=== PATIENT | male | born 1950 | race Caucasian/White ===

== ENCOUNTER → 2018-03-26 08:51 | Outpatient (CLI) | payer MEDICARE, BC, SELFPAY ==
--- NOTE | 2018-03-26 08:57 | RAD_ITS ---
STUDY: X-RAY - LEFT ANKLE REASON FOR EXAM: Male, 67 years old. Pain and swelling TECHNIQUE: 3 view(s) of the ankle. COMPARISON: None. FINDINGS: Normal visualized distal tibia and fibula. Normal medial and lateral malleoli. Normal tibiotalar articulation and ankle mortise. Normal visualized talus and calcaneus. The visualized subtalar, talonavicular, calcaneocuboid and tarsal articulations are normal. The soft tissue structures are unremarkable. RAD/Ankle min 3 Views IMPRESSION: Normal x-ray examination of the ankle. Electronically Signed: Jn Gerardo MD at 10:35 EDT , Service support ,
[2018-03-26 10:48] LABS: ALB/GLOB Ratio 1.2 RATIO (0.9-2.4); AST(SGOT) 15 U/L (15-37); Alanine Aminotransfer ALT/SGPT 29 U/L (16-61); Albumin, Serum 3.8 g/dL (3.2-5.0); Alkaline Phosphatase 63 U/L (45-117); Anion Gap 8 (5-15); BUN 19 mg/dL (7-18); BUN/Creat Ratio 20.3 RATIO (10-20); Calcium,Total 8.2 mg/dL (8.5-10.1); Chloride 108 mmol/L (98-107); Cholesterol 183 mg/dL (200); Creatinine, Serum 0.93 mg/dL (0.70-1.30); EST Glomerular Filtration Rate 85 mL/min (>60); Est Glom Filt Rate - Afr Amer 103 mL/min (>60); Globulin 3.3 g/dL (2.2-4.2); Glucose 103 mg/dL (74-106); High Density Lipoprotein 58 mg/dL; Potassium 4.4 mmol/L (3.5-5.1); Protein, Total 7.1 g/dL (6.4-8.2); Sodium Level 138 mmol/L (136-145); Triglycerides 43 mg/dL; Very Low Density Lipoprotein 9 mg/dL (5-40)
== END ==
PROVIDERS: Family Provider Family Medicine; PCP Family Medicine; Visit Provider Nurse Practitioner Family
DX: S99.912A Unspecified injury of left ankle, initial encounter (principal); N52.9 Male erectile dysfunction, unspecified; I10 Essential (primary) hypertension
CPT/HCPCS: 36415; 73610; 80053; 80061

== ENCOUNTER 2018-04-01 07:57 | Day surgery (SDC) | payer MEDICARE, BC, SELFPAY ==
[2018-04-01 08:22] VITALS: BP 131/87; PULSE 75; RESP 16; TEMP 36.5; O2SAT 100; BMI 31.1
--- NOTE | 2018-04-01 09:30 | COLBX_PTH ---
PATIENT: MIRA FELICIANO LOC: EN U#:[id number] AGE/SX: 67/M ROOM: RE04/01/[address]: Dr. Tim Rai MD : [id number] BED: DIS: 04/01/2018 SPEC #: [id number] RECD: 04/01/18 13:29 STATUS: ALMA GABRIELE #: [id number] YG: 04/01/18 09:[address]: Tim Rai DEPT: SURGICAL PATHOLOGY RECD BY: Nicholas Fiore ENTERED: 04/01/18 14:11 SP TYPE: COLON BX OTHR DR: Dr. Silas Chaidez, DO Tissues: Sigmoid colon biopsy Procedures: Surgery Specimen Level IV HEADER OPERATION: Colonoscopy (MAC) PRE-OP DIAGNOSIS: Screening TISSUE SUBMITTED: Polyp sigmoid MICROSCOPIC DIAGNOSIS Polyp sigmoid, biopsy: Tubular adenoma. SJ:dari 04/02/18 MICROSCOPIC DESCRIPTION Slides are reviewed. GROSS DESCRIPTION Received in fixative is one container labeled with the patient's name and designated polyp sigmoid. The specimen consists of a piece of monroy-pink polyp measuring 0.7 x 0.5 x 0.3 cm. The specimen is totally submitted in one cassette. / SJ:dari 04/01/18 TC:1 CPT: 02458
--- NOTE | 2018-04-01 09:39 | PCM.HP.STD ---
Problem List (1) Screen for colon cancer Status: Acute History of Present Illness Date of Admission: 04/01/18 The patient is a 67 year old M who presents for screening colonoscopy. Past Medical History Past Medical History (Chronic Problems): Chronic Problems (Last Reviewed 03/24/18 @ 14:35 by Chari Matos) Impotence (Chronic) Hypertension (Chronic) Sciatica (Chronic) Medical History: Medical History (Last Reviewed 03/24/18 @ 14:35 by Chari Matos) Impotence (Chronic) N52.9 Hypertension (Chronic) I10 Sciatica (Chronic) M54.30 Allergies hydrochlorothiazide [From Diovan HCT] Allergy (Unknown, Verified 04/01/18 08:18) Swelling valsartan [From Diovan HCT] Allergy (Unknown, Verified 04/01/18 08:18) Swelling Home Medications: Ambulatory Orders Medication Instructions Recorded amlodipine 10 mg tablet 10 mg PO QDAY #90 tab 02/10/18 benazepril 20 mg tablet 20 mg PO QDAY #90 tab 02/10/18 multivitamin tablet 1 tab PO QAM 02/10/18 ibuprofen 600 mg tablet 600 mg PO TID PRN #30 tab 03/24/18 Vits A,C,E/Lutein/Minerals 1 each PO DAILY 03/30/18 [Ocuvite with Lutein Tablet] Surgical History: Surgical History (Last Reviewed 03/24/18 @ 14:35 by Chari Matos) History of back surgery Z98.890 03/27/2016 Smoking Status: Former smoker - *Family History Maternal Family History: Family History (Last Reviewed 03/24/18 @ 14:35 by Chari Matos) Mother CVA (cerebral vascular accident) Hypertension Father Hypertension Review of Systems Cardiovascular: Denies: Chest Pain, Chest Pressure, Chest Tightness, Palpitations Respiratory: Denies: Cough, Hemoptysis, Shortness of breath at rest, Shortness of breath upon exertion, Wheezing Gastrointestinal: Denies: Abdominal Pain, Constipation, Diarrhea, Hematemesis, Nausea, Melena, Vomiting VTE Information - Inpt Only VTE Present on Admission: No VTE Mechan Device Prophylaxis: None VTE Pharm Prophylaxis ordered?: No Reason prophylaxis not ordered:: Treatment Not Indicated Patient Problems: Active and Suspected Problems (Last Reviewed 03/24/18 @ 14:35 by Chari Matos) Screen for colon cancer (Acute) - Physical Exam Lungs: Clear to auscultation Cardiovascular: Regular rate, Regular Rhythm, No murmurs Abdomen: Bowel Sounds Present, Soft, Non Tender, Non-Distended Vital Signs Temp Pulse Resp BP Pulse Ox 97.7 F L 75 16 131/87 H 100 04/01/18 08:22 04/01/18 08:22 04/01/18 08:22 04/01/18 08:22 04/01/18 08:22 Oxygen Delivery Method Room Air Weight: 204 lb 12.951 oz Body Mass Index (BMI) 31.1 Assessment/Plan All Active Problems (Last Reviewed 03/24/18 @ 14:35 by Chari Matos) Screen for colon cancer (Acute) Physical exam, annual (Acute) I plan is to perform a colonoscopy. Risk benefits have been reviewed and the patient agrees to proceed.
[2018-04-01 09:41] VITALS: BP 131/87; BP 93/62; PULSE 71; RESP 18; TEMP 36.6; O2SAT 98
--- NOTE | 2018-04-01 09:43 | OP.PCM_ITS ---
Problem List (1) Screen for colon cancer Status: Acute Report of Operation Date of Procedure: 04/01/18 Pre-Operative Diagnosis: Z12.11 screening colonoscopy Post-Operative Diagnosis: Same Surgery/Procedure Performed:: Colonoscopy with snare polypectomy Type of Anesthesia:: MAC Description of Procedure: Patient was brought into the operating room placed in left lateral decubitus position. He was given graded anesthesia. Scope was inserted into the rectum. It was directed through the sigmoid colon, descending colon, transverse colon , descending colon, to the cecum. Operative findings: 1. Cecum: Normal appearance no mass lesions normal ileocecal valve. 2. Descending colon: Normal appearance no mass lesions. 3 transverse colon: Normal appearance no mass lesions. 4. Descending colon: Normal appearance no mass lesions 5. Sigmoid colon: Normal appearance minimal diverticular disease was identified polyp was identified and I removed it with snare cautery technique and brought back to the channel the scope. 6. Rectum: Normal appearance no mass lesion scope was withdrawn no masses were felt in the anus and the prostate was smooth and small. Patient will need to have another colonoscopy in 3 years. - Admit VTE Documentation VTE Present on Admission: No VTE Mechan Device Prophylaxis: SCD's VTE Pharm Prophylaxis ordered?: No Reason prophylaxis not ordered:: Treatment Not Indicated
[2018-04-01 09:45] VITALS: BP 131/87; BP 98/72; PULSE 69; RESP 18; O2SAT 98
[2018-04-01 09:50] VITALS: BP 105/71; BP 131/87; PULSE 63; RESP 18; O2SAT 100
[2018-04-01 09:55] VITALS: BP 109/68; BP 131/87; PULSE 60; RESP 18; TEMP 37; O2SAT 100
== END 2018-04-01 10:25 | disposition home or self-care (01) ==
LOC: EN 07:58 → AC 07:59
PROVIDERS: Family Provider Family Medicine; PCP Family Medicine; Visit Provider Surgery
PROC: 0DJD8ZZ Inspection of Lower Intestinal Tract, Via Natural or Artificial Opening Endoscopic (ICD-10-PCS; CPT 45378; principal; 2018-04-01 09:25)
DX: Z12.11 Encounter for screening for malignant neoplasm of colon (principal); D12.5 Benign neoplasm of sigmoid colon; K57.30 Diverticulosis of large intestine without perforation or abscess without bleeding; I10 Essential (primary) hypertension; M54.30 Sciatica, unspecified side; Z79.899 Other long term (current) drug therapy; Z87.891 Personal history of nicotine dependence
CPT/HCPCS: 45385; 88305; J7120

== ENCOUNTER → 2019-02-11 | Outpatient (CLI) | payer MEDICARE, BC, SELFPAY ==
[2019-01-19 13:04] VITALS: BMI 32.3
[2019-02-11 12:42] LABS: AST(SGOT) 22 U/L (15-37); Alanine Aminotransfer ALT/SGPT 39 U/L (16-61); Albumin, Serum 3.8 g/dL (3.2-5.0); Alkaline Phosphatase 63 U/L (45-117); Anion Gap 4 (5-15); BUN 15 mg/dL (7-18); BUN/Creat Ratio 17.1 RATIO (10-20); Calcium,Total 8.5 mg/dL (8.5-10.1); Chloride 108 mmol/L (98-107); Cholesterol 212 mg/dL (200); Creatinine, Serum 0.88 mg/dL (0.70-1.30); EST Glomerular Filtration Rate 91 mL/min (>60); Est Glom Filt Rate - Afr Amer 110 mL/min (>60); Globulin 3.7 g/dL (2.2-4.2); Glucose 96 mg/dL (74-106); High Density Lipoprotein 61 mg/dL; Potassium 4.4 mmol/L (3.5-5.1); Protein, Total 7.5 g/dL (6.4-8.2); Sodium Level 136 mmol/L (136-145); Triglycerides 64 mg/dL; Very Low Density Lipoprotein 13 mg/dL (5-40)
== END | disposition home or self-care (01) ==
LOC: BIMLAB 08:05
PROVIDERS: Family Provider Family Medicine; PCP Family Medicine; Visit Provider Family Medicine
DX: N52.9 Male erectile dysfunction, unspecified (principal); I10 Essential (primary) hypertension
CPT/HCPCS: 36415; 80053; 80061

== ENCOUNTER → 2021-01-02 15:21 | Outpatient (CLI) | payer MEDICARE, BC, SELFPAY ==
[2021-01-02 14:54] VITALS: BMI 31.7
[2021-01-02 17:03] LABS: ALB/GLOB Ratio 1.1 RATIO (0.9-2.4); AST(SGOT) 16 U/L (15-37); Alanine Aminotransfer ALT/SGPT 36 U/L (16-61); Albumin, Serum 3.9 g/dL (3.2-5.0); Alkaline Phosphatase 69 U/L (45-117); Anion Gap 6 (5-15); BUN 14 mg/dL (7-18); BUN/Creat Ratio 19.9 RATIO (10-20); Calcium,Total 8.7 mg/dL (8.5-10.1); Chloride 105 mmol/L (98-107); Cholesterol 202 mg/dL (200); EST Glomerular Filtration Rate 117 mL/min (>60); Est Glom Filt Rate - Afr Amer 142 mL/min (>60); Globulin 3.7 g/dL (2.2-4.2); Glucose 91 mg/dL (74-106); High Density Lipoprotein 55 mg/dL; Potassium 4.1 mmol/L (3.5-5.1); Protein, Total 7.6 g/dL (6.4-8.2); Sodium Level 137 mmol/L (136-145); Triglycerides 69 mg/dL; Very Low Density Lipoprotein 14 mg/dL (5-40)
== END ==
PROVIDERS: PCP Family Medicine; Referring Provider Family Medicine; Visit Provider Family Medicine
DX: I10 Essential (primary) hypertension (principal)
CPT/HCPCS: 36415; 80053; 80061

== ENCOUNTER 2022-07-23 09:53 | Outpatient (CLI) | payer MEDICARE, BC, SELFPAY ==
[2022-07-23 12:35] LABS: ALB/GLOB Ratio 0.8 RATIO (0.9-2.4); AST(SGOT) 13 U/L (15-37); Alanine Aminotransfer ALT/SGPT 29 U/L (16-61); Albumin, Serum 3.3 g/dL (3.2-5.0); Alkaline Phosphatase 69 U/L (45-117); Anion Gap 7 (5-15); BUN 18 mg/dL (7-18); BUN/Creat Ratio 26.3 RATIO (10-20); Calcium,Total 8.7 mg/dL (8.5-10.1); Chloride 105 mmol/L (98-107); Cholesterol 133 mg/dL (200); Creatinine, Serum 0.68 mg/dL (0.70-1.30); EST Glomerular Filtration Rate 120 mL/min (>60); Est Glom Filt Rate - Afr Amer 146 mL/min (>60); Globulin 4.1 g/dL (2.2-4.2); Glucose 84 mg/dL (74-106); High Density Lipoprotein 41 mg/dL; Potassium 4.2 mmol/L (3.5-5.1); Protein, Total 7.4 g/dL (6.4-8.2); Sodium Level 137 mmol/L (136-145); Triglycerides 87 mg/dL; Very Low Density Lipoprotein 17 mg/dL (5-40)
== END 2022-07-23 23:59 | disposition home or self-care (01) ==
LOC: BIMLAB 09:54
PROVIDERS: PCP Family Medicine; Referring Provider Family Medicine; Visit Provider Family Medicine
DX: I10 Essential (primary) hypertension (principal); R35.1 Nocturia
CPT/HCPCS: 36415; 80053; 80061; 84153

== ENCOUNTER → 2023-06-04 | Outpatient (CLI) | payer MEDICARE, BC, SELFPAY ==
[2023-06-04 13:35] LABS: PSA,Total- Diagnostic 9.84 ng/mL (0.0-4.0)
== END | disposition home or self-care (01) ==
LOC: BIMLAB 11:44
PROVIDERS: PCP Family Medicine; Referring Provider Family Medicine; Visit Provider Family Medicine
DX: R35.1 Nocturia (principal)
CPT/HCPCS: 36415; 84153

== ENCOUNTER → 2023-08-20 | Outpatient (CLI) | payer MEDICARE, BC, SELFPAY ==
[2023-08-20 15:34] LABS: Absolute Neutrophil Count 12.3 X10^3/uL (2.0-7.7); Basophil# 0.07 X10^3/uL; Basophil% 0.5 % (0-1); Eosinophil# 0.02 X10^3/uL; Eosinophils% 0.1 % (0-5); Hemoglobin 15.9 g/dL (13.0-16.5); Lymphocyte % 6.4 % (19-41); Mean Corp Hgb Conc 33.1 g/dL (32-36); Mean Corpuscular Hgb 30.2 pg (27.0-32.0); Mean Corpuscular Volume 91.1 fL (80-94); Mean Platelet Vol. 9.5 fl (6.2-12.0); Monocyte# 0.62 X10^3/uL; Monocyte% 4.4 % (0-10); NRBC Flagged by Analyzer 0 % (0-5); Neutrophil # 12.29 X10^3/uL (2.7-7.7); Neutrophil % 87.4 % (47-70); Platelet Count 318 K/mm3 (150-450); RBC Distribution Width CV 13.5 % (11.6-14.6); RBC Distribution Width SD 45.5 fl (35.1-43.9); Red Blood Count 5.27 M/mm3 (4.6-6.2); White Blood Count 14.1 K/mm3 (4.4-11.0)
[2023-08-20 16:22] LABS: ALB/GLOB Ratio 0.9 RATIO (0.9-2.4); AST(SGOT) 12 U/L (15-37); Alanine Aminotransfer ALT/SGPT 24 U/L (16-61); Albumin, Serum 3.5 g/dL (3.2-5.0); Alkaline Phosphatase 73 U/L (45-117); Anion Gap 9 (5-15); BUN 17 mg/dL (7-18); BUN/Creat Ratio 22.7 RATIO (10-20); Calcium,Total 8.5 mg/dL (8.5-10.1); Chloride 107 mmol/L (98-107); Cholesterol 153 mg/dL (200); Creatinine, Serum 0.75 mg/dL (0.70-1.30); EST Glomerular Filtration Rate 108 mL/min (>60); Est Glom Filt Rate - Afr Amer 131 mL/min (>60); Globulin 3.8 g/dL (2.2-4.2); Glucose 112 mg/dL (74-106); High Density Lipoprotein 70 mg/dL; PSA,Total- Diagnostic 9.07 ng/mL (0.0-4.0); Potassium 4.2 mmol/L (3.5-5.1); Protein, Total 7.3 g/dL (6.4-8.2); Sodium Level 138 mmol/L (136-145); Triglycerides 48 mg/dL; Very Low Density Lipoprotein 10 mg/dL (5-40)
== END | disposition home or self-care (01) ==
LOC: BIMLAB 14:32
PROVIDERS: PCP Family Medicine; Referring Provider Family Medicine; Visit Provider Family Medicine
DX: R35.1 Nocturia (principal); I10 Essential (primary) hypertension; M54.30 Sciatica, unspecified side
CPT/HCPCS: 36415; 80053; 80061; 84153; 85025

== ENCOUNTER → 2023-08-29 | Outpatient (CLI) | payer MEDICARE, BC, SELFPAY ==
--- OUTSIDE RECORDS SUMMARY | 2023-08-29 10:57 | XMS RPT_ITS | CCD ---
Author Name Unknown Address [address] [place] [address] Organization [facility] Care Team Providers Care Nurse Advocate Name Role Phone Maryellen Chaidez DO Primary Care Provider TIM RAI Attending Unavailable TIM RAI Referring Unavailable MARYELLEN CHAIDEZ Primary Care Unavailable TIM RAI Attending Unavailable TIM RAI Referring Unavailable MARYELLEN CHAIDEZ Primary Care Unavailable TIM RAI Attending Unavailable PORSHA NORMAN Referring Unavailable MARYELLEN CHAIDEZ Primary Care Unavailable PORSHA NORMAN Attending Unavailable MARYELLEN CHAIDEZ Primary Care Unavailable Allergies Allergy Classification Reported Allergen(s) Allergy Type Date of Onset Reaction(s) Facility (6 sources) hydroCHLOROthiazi de; Translations: [HYDROCHLOROTHIAZ ZEINAB] Drug Allergy 02-03-2023 Swelling [facility] (6 sources) valsartan; Translations: [VALSARTAN] Drug Allergy 02-03-2023 Swelling [facility] Medications Current Medications Medication Drug Class(es) Dates Sig (Normalized) Sig (Original) polyethylene glycol 3350 868765 mg / potassium chloride 2970 mg / sodium bicarbonate 6740 mg / sodium chloride 5860 mg / sodium sulfate 74608 mg powder for oral solution (3 sources) Osmotic Laxative Start: 02-28-2023 End: 02-28-2023 peg 3350-Electrolytes (GOLYTELY) 236-22.74-6.74 -5.86 gram suspension Indications: Personal history of colonic polyps Take 4,000 mL by mouth one time only for 1 dose. Refer to printed prep instructions from your provider. 4000 mL 0 02/28/2023 02/28/2023 Active Completed/Discontinued Medications Medication Drug Class(es) Dates Sig (Normalized) Sig (Original) amLODIPine 10 mg oral tablet (5 sources) Dihydropyridine Calcium Channel Cristofer take 1 tablet by mouth once daily amLODIPine (NORVASC) 10 mg tablet Take 10 mg by mouth once daily. 0 Active Problems Active Problems Problem Classification Problem Date Documented Da te Episodic/Chronic Other and unspecified benign neoplasm (8 sources) History of polyp of colon; Translations: [Personal history of colonic polyps] Onset: 02-20-2023 Episodic Other screening for suspected conditions (not mental disorders or infectious disease) (2 sources) Encounter for screening for malignant neoplasm of colon; Translations: [Patient encounter status] Onset: 02-20-2023 02-19-2023 Episodic Unclassified (1 source) Consult Onset: 02-04-2023 Past or Other Problems Problem Classification Problem Date Documented Da te Episodic/Chronic Other and unspecified benign neoplasm (1 source) Personal history of colonic polyps; Translations: [Personal history of colonic polyps] Onset: 02-20-2023 Episodic Results Test Name Value Interpretation Reference Range Facil ity Vital Signs Date Time Vital Sign Value Performing Clinician Terry barragan 06-02-2023 08:50-0400 Diastolic blood pressure 79 mm[Hg] Tim Rai MD Work Phone: [facility] 06-02-2023 08:50-0400 Heart rate 68 /min Tim Rai MD Work Phone: [facility] 06-02-2023 08:50-0400 Respiratory rate 16 /min Tim Rai MD Work Phone: [facility] 06-02-2023 08:50-0400 SaO2% (BldA) [Mass fraction] 96 % Tim Rai MD Work Phone: [facility] 06-02-2023 08:50-0400 Systolic blood pressure 139 mm[Hg] Tim Rai MD Work Phone: [facility] 06-02-2023 07:39-0400 Body temperature 97.3 [degF] Tim Rai MD Work Phone: [facility] 06-02-2023 07:39-0400 Body weight 92.1 kg Tim Rai MD Work Phone: [facility] 02-28-2023 08:14-0400 Body temperature 97 [degF] Tim Rai MD Work Phone: [facility] 02-28-2023 08:14-0400 Body weight 92.08 kg Tim Rai MD Work Phone: [facility] 02-28-2023 08:14-0400 Diastolic blood pressure 78 mm[Hg] Tim Rai MD Work Phone: [facility] 02-28-2023 08:14-0400 Heart rate 82 /min Tim Rai MD Work Phone: [facility] 02-28-2023 08:14-0400 SaO2% (BldA) [Mass fraction] 96 % Tim Rai MD Work Phone: [facility] 02-28-2023 08:14-0400 Systolic blood pressure 136 mm[Hg] Tim Rai MD Work Phone: [facility] 02-20-2023 11:10-0400 Diastolic blood pressure 94 mm[Hg] Tim Rai MD Work Phone: [facility] 02-20-2023 11:10-0400 Heart rate 73 /min Tim Rai MD Work Phone: [facility] 02-20-2023 11:10-0400 Respiratory rate 16 /min Tim Rai MD Work Phone: [facility] 02-20-2023 11:10-0400 SaO2% (BldA) [Mass fraction] 95 % Tim Rai MD Work Phone: [facility] 02-20-2023 11:10-0400 Systolic blood pressure 170 mm[Hg] Tim Rai MD Work Phone: [facility] 02-20-2023 09:21-0400 Body temperature 97 [degF] Tim Rai MD Work Phone: [facility] 02-20-2023 09:21-0400 Body weight 92.4 kg Tim Rai MD Work Phone: [facility] Encounters Encounter Date Encounter Type Care Provider Facility Start: 06-02-2023 End: 06-02-2023 ambulatory TIM RAI Facility:[facility] Start: 06-02-2023 End: 06-02-2023 Subsequent hospital visit by physician Tim Rai MD Work Phone: Ambulatory Surgery Procedures Date Procedure Procedure Detail Performing Clinician Start: 06-02-2023 Colonoscopy flx dx w /collj spec when pfrmd Tim Rai MD Work Phone: Start: 06-02-2023 Colonoscopy Tim tobin MD Work Phone: Start: 02-20-2023 Colonoscopy flx dx w /collj spec when pfrmd Porsha [place] PA-C Work Phone: Start: 02-20-2023 Colonoscopy Porsha Gra f PA-C Work Phone: Plan of Treatment Date Care Activity Detail Author Start: 06-02-2024 Colonoscopy Colonoscopy [facility] Start: 06-02-2024 Colorectal Cancer Screening Colorectal Cancer Screening [facility] Start: 02-21-2024 Colonoscopy COLONOSCOPY [facility] Start: 02-21-2024 COLORECTAL CANCER SCREENING COLORECTAL CANCER SCREENING [facility] Start: 05-02-2023 Influenza vaccination [facility] Start: 09-01-2022 ADVANCE DIRECTIVE DISCUSSION ADVANCE DIRECTIVE DISCUSSION [facility] Start: 09-01-2022 DEPRESSION ASSESSMENT DEPRESSION ASSESSMENT [facility] Start: 2013 Pneumococcal Vaccine: 65+ (1 - PCV) Pneumococcal Vaccine: 65+ (1 - PCV) [facility] Start: 2013 PNEUMOCOCCAL: 65+ (1 - PCV) PNEUMOCOCCAL: 65+ (1 - PCV) [facility] Start: 1998 SHINGRIX VACCINE (1 of 2) SHINGRIX VACCINE (1 of 2) [facility] Start: 1993 COLOGUARD (FIT-DNA) COLOGUARD (FIT-DNA) [facility] Start: 1993 Colonoscopy COLONOSCOPY [facility] Start: 1993 COLORECTAL CANCER SCREENING COLORECTAL CANCER SCREENING [facility] Start: [address] COLONOGRAPHY [facility] Start: 1993 DIABETES SCREEN DIABETES SCREEN [facility] Start: 1993 Diabetes Screening Diabetes Screening [facility] Start: 1993 FECAL OCCULT BLOOD FECAL OCCULT BLOOD [facility] Start: 1993 SIGMOIDOSCOPY SIGMOIDOSCOPY [facility] Start: 1983 Lipid 1996 panel - Serum or Plasma Lipid Screening [facility] Start: 1983 LIPID SCREEN LIPID SCREEN [facility] Start: 1967 Urine microalbumin profile [facility] Start: 1966 HEPATITIS C SCREENING HEPATITIS C SCREENING [facility] Start: 02-08-1949 COVID-19 VACCINE (#1) COVID-19 VACCINE (#1) [facility] Start: 1948 ABDOMINAL AORTIC ANEURYSM SCREENING ABDOMINAL AORTIC ANEURYSM SCREENING [facility] End: 02-29-2024 COLONOSCOPY DIAGNOSTIC COLONOSCOPY DIAGNOSTIC Endoscopy Routine Personal history of colonic polyps 1 Occurrences starting 02/28/2023 until 02/29/2024 [facility] Work Phone: Immunizations Immunization Date Immunization Notes Care Provider Fa cility 06-24-2019 influenza virus vacc ine, unspecified formulation Tim Rai MD Work Phone: [facility] Payers Date Payer Category Payer Medicare [id number] 2016 Unknown NATALIO EDWARD DICARE SUPPLEMENT [id number] 2016-Present [phone] [address] [place] [address] Indemnity [id number] 2013 Medicare MEDICARE MEDICAR E A AND B [id number] 2013-Present [phone] [address] [address] [place] [address] Medicare [id number] 2013 Medicare [id number] Social History Date Type Detail Facility Start: 02-03-2023 Tobacco smoking stat us NHIS Ex-smoker [facility] End: 09-01-1967 History of tobacco use Current smoker [facility] End: 09-01-1967 History of tobacco use Cigarette Smoker [facility] Start: 02-03-2023 Tobacco use and exposure Smokeless t obacco non-user [facility] Start: 02-04-2023 End: 06-02-2023 Alcohol intake Current drinker of alcohol (finding) [facility] Start: 02-03-2023 [facility] Start: 1950 Sex Assigned At Not on file [facility] Start: 02-20-2023 End: 06-02-2023 History of Social function [facility] Start: 02-20-2023 End: 06-02-2023 Tobacco use panel [facility] Clinical Notes 02-04-2023 to 06-02-2023 Carmina Martinez RN - 06/02/2023 8:20 AM EDTPTim batista MD - 06/02/2023 8:00 AM EDTTim Rai MD - 02/28/2023 8:34 AM EDTPatient Kenneth Godfrey RN - 02/20/2023 10:00 AM EDT Note Date & Type Note Facility 06-02-2023 Nurse Note Patient received in phase II via cart in left lateral position, eyes open, alert to event, place and self, skin warm and dry, respirations regular and unlabored, abdomen soft and non distended, denies pain or nausea. Resting quietly on left side. documented in this encounter [facility] 06-02-2023 History and physical note Images from the original note were not included. HISTORY AND PHYSICAL Amilcar Linda Kendrick 1950 REFERRING PHYSICIAN: Self CHIEF COMPLAINT: Consult (Colonoscopy consult) HPI: The patient is a 72 year old male referred for endoscopy. Amilcar notes a history of colon polyps and presents to discuss surveillance colonoscopy. Patient denies any change in bowel habits, weight changes, blood in stools, black tarry stools or abdominal pain. Denies family history of colon issues. The patient notes no upper GI complaints. Amilcar has undergone prior endoscopy. Last colonoscopy 04/24/[address] Rai at [facility] with adenomatous polyp removed. Patient denies chest pain, shortness of breath or recent hospitalizations. Denies problems with sedation in the past. PAST MEDICAL HISTORY PAST MEDICAL HISTORY Diagnosis Date Essential hypertension Sciatica PAST SURGICAL HISTORY PAST SURGICAL HISTORY Procedure Laterality Date BACK SURGERY HX COLONOSCOPY SCREENING 04/01/2018 [facility] with Cecelia 3 year follow up CURRENT MEDICATIONS Current Outpatient Medications Medication Sig VITAMIN A ORAL Take 1 tablet by mouth once daily. vitamin E (AQUAVIT-E ORAL) Take 1 tablet by mouth once daily. MULTIVITAMIN ORAL Take by mouth. ibuprofen (MOTRIN) 600 mg tablet Take 600 mg by mouth every 6 hours as needed. amLODIPine (NORVASC) 10 mg tablet Take 10 mg by mouth once daily. benazepril (LOTENSIN) 20 mg tablet Take 20 mg by mouth once daily. No current facility-administered medications for this visit. ALLERGIES: Hydrochlorothiazide and Valsartan PERSONAL HISTORY: SOCIAL HISTORY Social History Tobacco Use Smoking status: Former Types: Cigarettes Quit date: 1967 Years since quittin.4 Smokeless tobacco: Never Vaping Use Vaping Use: Never used Substance Use Topics Alcohol use: Yes Comment: occasional Drug use: Never FAMILY HISTORY: FAMILY HISTORY FAMILY HISTORY Problem Relation Age of Onset other (cva) Mother Hypertension Mother Hypertension Father REVIEW OF SYMPTOMS: The review of systems data was entered by the nurse and reviewed by ms Nursing Notes: Rachel Nash RN 02/04/2023 8:18 AM Signed REVIEW OF SYSTEMS: General: The patient denies fatigue, denies weight loss, denies weight gain, denies feeling hot, and denies feelings of cold. Eyes: The patient denies glaucoma, denies eye injury/surgery, wears glasses or contacts. Ear/Nose/Throat: The patient NOTES allergies, denies hayfever, denies ear infections, and denies bloody noses. Cardiovascular: The patient denies chest pain, denies heart disease, NOTES high blood pressure,denies cardiac stent, denies prior heart attack, denies irregular heart beat, denies high cholesterol, denies poor circulation, denies heart failure, other cardiac issues, denies claudication, denies cold feet, denies peripheral arterial stent. Respiratory: The patient denies tuberculosis, denies pneumonia, denies frequent cough, denies pulmonary embolism, denies shortness of breath, and denies coughing up blood. Gastrointestinal: The patient denies difficulty swallowing, denies acid reflux, denies ulcers, denies vomiting, denies jaundice/hepatitis, denies gallbladder problems, denies black or tarry stools, denies hemorrhoids, NOTES bleeding from rectum, denies diverticulitis, denies constipation, denies diarrhea, denies loss of stool control, and denies hernias. Kidney/Bladder: The patient denies kidney stones, denies urine infections, and denies bloody urine. Skin: The patient denies a history of skin cancer, denies bleeding/changing moles, and denies a history of skin rash. Neurologic: The patient denies a history of epilepsy/convulsions, denies headaches, denies head/spinal injuries, and denies stroke/TIA. Psychiatric: The patient denies psychiatric medications, denies depression, and denies voices, denies substance abuse. Endocrine: The patient denies thyroid disorders, denies diabetes, and denies hormonal problems. Hematologic: The patient denies a history of bruising, denies bleeding, and denies anemia, denies blood clots. Infections: The patient denies a history of measles and mumps, denies rheumatic fever, and denies sexually transmitted diseases. Musculoskeletal: The patient denies back pain/injury, denies back problems, NOTES sciatica, denies knee/foot trouble, denies arthritis, or denies gout. When was patient's last Mammogram screening? N/A Last Colonoscopy: 2018 Rachel Nash RN I have confirmed and edited as necessary, the PFSH and ROS obtained by others. Porsha Norman PA-C PHYSICAL EXAMINATION: General: The patient is 72 year old male, well nourished, well hydrated in no acute distress. The patient is oriented to time, place, and person. VITALS: Blood pressure 138/80, pulse 78, temperature 36.6 C (97.8 F), height 172.7 cm (5' 8 ), weight 92.4 kg (203 lb 12.8 oz), SpO2 96 %. Body mass index is 30.99 kg/m . HEENT: Normal cephalic, ataumatic, pupils are equally round, sclera are anicteric, mucous membranes are moist, oropharynx is clear. Neck has no masses, asymmetry or lymphadenopathy. Respiratory: Clear to auscultation and percussion. Normal respiratory excursion and pattern. Cardiac: Examination is regular rate and rhythm. Normal S1/S2 Abdominal exam: Soft, nontender, with no palpable masses. No hepatosplenomegaly. No palpable hernias. Extremities: no clubbing, cyanosis or edema. No adenopathy. LABORATORY VALUES: As Noted RADIOLOGIC STUDIES: As Noted Assessment IMPRESSION: personal history of colon polyps, encounter for high-risk surveillance colonoscopy PLAN: I have reviewed my findings with the surgeon. Will plan for lower endoscopy. We discussed the risks and benefits of the planned endoscopy. I have informed the patient that complications can occur including failure to complete the endoscopy and perforation. The patient had the opportunity to ask questions concerning the planned endoscopy. My staff has also explained the procedure to the patient in understandable terms and has given the patient printed material concerning the procedure. The patient freely consents to surgery. I plan to use Miralax bowel preparation I have explained to the patient the difference between IV conscious sedation and MAC anesthesia - and I have offered either, according to the patient's wishes. I have explained that with IV conscious sedation there is no anesthesia provider available and therefore there is a limitation of the amount of IV medications that can be given and that the patient may wake up in the middle of the procedure and/or experience pain/discomfort during the procedure. Further discussion was done and the patient was given the opportunity to ask questions and all questions were answered. The patient chooses IV conscious sedation Diagnoses: (Z12.11) Encounter for screening for malignant neoplasm of colon (primary encounter diagnosis) (Z86.010) History of colonic polyps I spent a total of 32 minutes on the date of the service which included preparing to see the patient, [id number] patient care, completing clinical documentation, obtaining and/or reviewing separately obtained history, performing a medically appropriate examination, counseling and educating the patient/family/caregiver, and ordering medications, tests, or procedures. Porsha Norman PA-C UPDATED HISTORY AND PHYSICAL EXAMINATION SERVICE DATE: 06/02/2023 SERVICE TIME: 7:51 AM PHYSICAL EXAM MUST BE COMPLETED ON ADMISSION The History and Physical (completed in the past 30 days) has been reviewed and the patient has been examined. The contents accurately reflect the patient's condition with the following additions or revisions since the H&P was completed. His last attempted colonoscopy his bowel prep was not adequate. He is back today after doing a 2-day bowel prep. Examination indicates no changes. This H&P can be found in the attached. SIGNATURE: Tim Rai III, MD PATIENT NAME: Amilcar Kendrick DATE: June 02, 2023 TIME: 7:51 AM documented in this encounter [facility] 02-28-2023 Note HNO ID: [id number] Author: Tim Rai MD Service: ? Author Type: Physician Type: Progress Notes Filed: 02/28/2023 9:08 AM Note Text: HISTORY AND PHYSICAL Amilcar Kendrick 1950 REFERRING PHYSICIAN: Tim Rai MD CHIEF COMPLAINT: Follow Up HPI: The patient is a 72 year old male referred for endoscopy. Amilcar notes a history of colon polyps and presents to discuss surveillance colonoscopy. Patient denies any change in bowel habits, weight changes, blood in stools, black tarry stools or abdominal pain. Denies family history of colon issues. The patient notes no upper GI complaints. Amilcar has undergone prior endoscopy. Last colonoscopy 04/24/[address] Rai at [facility] with adenomatous polyp removed. His bowel prep was entirely inadequate. And I am going to have to rescope him in the next several months. I have counseled him on how he should prepare for his colonoscopy to do a 2-day bowel prep with GoLytely. PAST MEDICAL HISTORY Diagnosis Date Essential hypertension Sciatica PAST SURGICAL HISTORY Procedure Laterality Date BACK SURGERY HX COLONOSCOPY SCREENING 04/01/2018 [facility] with Cecelia 3 year follow up Current Outpatient Medications Medication Sig ascorbic acid (VITAMIN C ORAL) Take by mouth once daily. VITAMIN A ORAL Take 1 tablet by mouth once daily. vitamin E (AQUAVIT-E ORAL) Take 1 tablet by mouth once daily. MULTIVITAMIN ORAL Take by mouth. ibuprofen (MOTRIN) 600 mg tablet Take 600 mg by mouth every 6 hours as needed. amLODIPine (NORVASC) 10 mg tablet Take 10 mg by mouth once daily. benazepril (LOTENSIN) 20 mg tablet Take 20 mg by mouth once daily. peg 3350-Electrolytes (GOLYTELY) 236-22.74-6.74 -5.86 gram suspension Take 4,000 mL by mouth one time only for 1 dose. Refer to printed prep instructions from your provider. No current facility-administered medications for this visit. ALLERGIES: Hydrochlorothiazide and Valsartan PERSONAL HISTORY: Social History Tobacco Use Smoking status: Former Types: Cigarettes Quit date: 1967 Years since quittin.5 Smokeless tobacco: Never Vaping Use Vaping Use: Never used Substance Use Topics Alcohol use: Yes Comment: occasional Drug use: Never FAMILY HISTORY: FAMILY HISTORY Problem Relation Age of Onset other (cva) Mother Hypertension Mother Hypertension Father REVIEW OF SYSTEMS: General: The patient denies fatigue, denies weight loss, denies weight gain, denies feeling hot, and denies feelings of cold. Eyes: The patient denies glaucoma, denies eye injury/surgery, wears glasses or contacts. Ear/Nose/Throat: The patient NOTES allergies, denies hayfever, denies ear infections, and denies bloody noses. Cardiovascular: The patient denies chest pain, denies heart disease, NOTES high blood pressure,denies cardiac stent, denies prior heart attack, denies irregular heart beat, denies high cholesterol, denies poor circulation, denies heart failure, other cardiac issues, denies claudication, denies cold feet, denies peripheral arterial stent. Respiratory: The patient denies tuberculosis, denies pneumonia, denies frequent cough, denies pulmonary embolism, denies shortness of breath, and denies coughing up blood. Gastrointestinal: The patient denies difficulty swallowing, denies acid reflux, denies ulcers, denies vomiting, denies jaundice/hepatitis, denies gallbladder problems, denies black or tarry stools, denies hemorrhoids, NOTES bleeding from rectum, denies diverticulitis, denies constipation, denies diarrhea, denies loss of stool control, and denies hernias. Kidney/Bladder: The patient denies kidney stones, denies urine infections, and denies bloody urine. Skin: The patient denies a history of skin cancer, denies bleeding/changing moles, and denies a history of skin rash. Neurologic: The patient denies a history of epilepsy/convulsions, denies headaches, denies head/spinal injuries, and denies stroke/TIA. Psychiatric: The patient denies psychiatric medications, denies depression, and denies voices, denies substance abuse. Endocrine: The patient denies thyroid disorders, denies diabetes, and denies hormonal problems. Hematologic: The patient denies a history of bruising, denies bleeding, and denies anemia, denies blood clots. Infections: The patient denies a history of measles and mumps, denies rheumatic fever, and denies sexually transmitted diseases. Musculoskeletal: The patient denies back pain/injury, denies back problems, NOTES sciatica, denies knee/foot trouble, denies arthritis, or denies gout. When was patient's last Mammogram screening? N/A Last Colonoscopy: 2017 PHYSICAL EXAMINATION: General: The patient is 72 year old male, well nourished, well hydrated in no acute distress. The patient is oriented to time, place, and person. VITALS: Blood pressure 136/78, pulse 82, temperature 36.1 ?C (97 ?F), weight 92.1 kg (203 lb), SpO2 (more content not included)... [facility] 02-28-2023 History of Present illness Narrative HISTORY AND PHYSICAL Amilcar Mckeon Mireille 1950 REFERRING PHYSICIAN: Tim Rai MD CHIEF COMPLAINT: Follow Up HPI: The patient is a 72 year old male referred for endoscopy. Amilcar notes a history of colon polyps and presents to discuss surveillance colonoscopy. Patient denies any change in bowel habits, weight changes, blood in stools, black tarry stools or abdominal pain. Denies family history of colon issues. The patient notes no upper GI complaints. Amilcar has undergone prior endoscopy. Last colonoscopy 04/24/[address] Rai at [facility] with adenomatous polyp removed. His bowel prep was entirely inadequate. And I am going to have to rescope him in the next several months. I have counseled him on how he should prepare for his colonoscopy to do a 2-day bowel prep with Mylene. PAST MEDICAL HISTORY Diagnosis Date Essential hypertension Sciatica PAST SURGICAL HISTORY Procedure Laterality Date BACK SURGERY HX COLONOSCOPY SCREENING 04/01/2018 [facility] with Cecelia 3 year follow up Current Outpatient Medications Medication Sig ascorbic acid (VITAMIN C ORAL) Take by mouth once daily. VITAMIN A ORAL Take 1 tablet by mouth once daily. vitamin E (AQUAVIT-E ORAL) Take 1 tablet by mouth once daily. MULTIVITAMIN ORAL Take by mouth. ibuprofen (MOTRIN) 600 mg tablet Take 600 mg by mouth every 6 hours as needed. amLODIPine (NORVASC) 10 mg tablet Take 10 mg by mouth once daily. benazepril (LOTENSIN) 20 mg tablet Take 20 mg by mouth once daily. peg 3350-Electrolytes (GOLYTELY) 236-22.74-6.74 -5.86 gram suspension Take 4,000 mL by mouth one time only for 1 dose. Refer to printed prep instructions from your provider. No current facility-administered medications for this visit. ALLERGIES: Hydrochlorothiazide and Valsartan PERSONAL HISTORY: Social History Tobacco Use Smoking status: Former Types: Cigarettes Quit date: 1967 Years since quittin.5 Smokeless tobacco: Never Vaping Use Vaping Use: Never used Substance Use Topics Alcohol use: Yes Comment: occasional Drug use: Never FAMILY HISTORY: FAMILY HISTORY Problem Relation Age of Onset other (cva) Mother Hypertension Mother Hypertension Father REVIEW OF SYSTEMS: General: The patient denies fatigue, denies weight loss, denies weight gain, denies feeling hot, and denies feelings of cold. Eyes: The patient denies glaucoma, denies eye injury/surgery, wears glasses or contacts. Ear/Nose/Throat: The patient NOTES allergies, denies hayfever, denies ear infections, and denies bloody noses. Cardiovascular: The patient denies chest pain, denies heart disease, NOTES high blood pressure,denies cardiac stent, denies prior heart attack, denies irregular heart beat, denies high cholesterol, denies poor circulation, denies heart failure, other cardiac issues, denies claudication, denies cold feet, denies peripheral arterial stent. Respiratory: The patient denies tuberculosis, denies pneumonia, denies frequent cough, denies pulmonary embolism, denies shortness of breath, and denies coughing up blood. Gastrointestinal: The patient denies difficulty swallowing, denies acid reflux, denies ulcers, denies vomiting, denies jaundice/hepatitis, denies gallbladder problems, denies black or tarry stools, denies hemorrhoids, NOTES bleeding from rectum, denies diverticulitis, denies constipation, denies diarrhea, denies loss of stool control, and denies hernias. Kidney/Bladder: The patient denies kidney stones, denies urine infections, and denies bloody urine. Skin: The patient denies a history of skin cancer, denies bleeding/changing moles, and denies a history of skin rash. Neurologic: The patient denies a history of epilepsy/convulsions, denies headaches, denies head/spinal injuries, and denies stroke/TIA. Psychiatric: The patient denies psychiatric medications, denies depression, and denies voices, denies substance abuse. Endocrine: The patient denies thyroid disorders, denies diabetes, and denies hormonal problems. Hematologic: The patient denies a history of bruising, denies bleeding, and denies anemia, denies blood clots. Infections: The patient denies a history of measles and mumps, denies rheumatic fever, and denies sexually transmitted diseases. Musculoskeletal: The patient denies back pain/injury, denies back problems, NOTES sciatica, denies knee/foot trouble, denies arthritis, or denies gout. When was patient's last Mammogram screening? N/A Last Colonoscopy: 2018 PHYSICAL EXAMINATION: General: The patient is 72 year old male, well nourished, well hydrated in no acute distress. The patient is oriented to time, place, and person. VITALS: Blood pressure 136/78, pulse 82, temperature 36.1 C (97 F), weight 92.1 kg (203 lb), SpO2 96 %. Body mass index is 30.87 kg/m . HEENT: Normal cephalic, ataumatic, pupils are equally round, sclera are anicteric, mucous membranes are moist, oropharynx is clear. Neck has no masses, asymmetry or lymphadenopathy. Thyroid is unremarkable. Respiratory: Clear to auscultation and percussion. Normal respiratory excursion and pattern. Cardiac: Examination is regular rate and rhythm. Abdominal exam: Soft, nontender, with no palpable masses. No hepatosplenomegaly. No palpable hernias. Rectal exam: exam deferred Extremities: no clubbing, cyanosis or edema. No adenopathy. Other: LABORATORY VALUES: As Noted RADIOLOGIC STUDIES: As Noted Assessment IMPRESSION: Personal history of colonic polyps (primary encounter diagnosis) PLAN: I plan to perform lower endoscopy. We discussed the risks and benefits of the planned endoscopy. I have informed the patient that complications can occur including failure to complete the endoscopy and perforation. The patient had the opportunity to ask questions concerning the planned endoscopy. My staff has also explained the procedure to the patient in understandable terms and has given the patient printed material concerning the procedure. The patient freely consents to surgery. I plan to use golytely bowel preparation for endoscopy Diagnoses: (Z86.010) Personal history of colonic polyps (primary encounter diagnosis) Return to Clinic: The patient is instructed to follow-up with me 1 week post operatively. Tim Rai III, MD documented in this encounter [facility] 02-28-2023 Instructions Tim Rai MD - 02/28/2023 8:28 AM EDT Images from the original note were not included. Bowel Preparation Instructions for: Golytely, Nulytely, Trilyte or Colyte (polyethylene glycol 3350 and electrolytes) IF YOU DO NOT FOLLOW THESE DIRECTIONS, YOUR COLONOSCOPY WILL BE CANCELLED. Gardner Instructions: Your bowel must be empty so that your doctor can clearly view your colon. Follow all of the instructions in this handout EXACTLY as they are written. Do NOT eat any solid food the ENTIRE day before your colonoscopy. Drink only clear liquids. Buy your bowel preparation at least 5 days before your colonoscopy. TRANSPORTATION on the Day of Your Exam A responsible person MUST be present with you at Check In prior to your colonoscopy and REMAIN in the endoscopy area until you are discharged. You are NOT ALLOWED to drive, take a taxi or bus, or leave the Endoscopy Center ALONE. If you do not have a responsible jukebox route driver (family member or friend) with you to take you home, your exam cannot be done with sedation and will be cancelled. Please bring a list of all of your current medications, including any Over-the Counter medications with you. Medications If you take insulin, diabetic medications or blood thinners such as Coumadin (warfarin), Plavix (clopidogrel), Ticlid (ticlopidine hydrochloride), Agrylin (anagrelide), Xarelto (Rivaroxaban), Pradaxa (Dabigatran), Eliquis (Apixaban), and Effient (Prasugrel). You MUST call the doctors who orders those medicines for instructions on altering the dosage before your colonoscopy. All other medications should be taken the day of the exam with a sip of water including ASPIRIN. Five (5) Days Before Your Colonoscopy Do NOT take medicines that stop diarrhea - such as Imodium, Kaopectate, or Pepto Bismol. Do NOT take fiber supplements - such as Metamucil, Citrucel, or Perdiem. Do NOT take products that contain iron - such as multi-vitamins (the label lists what is in the products). Do NOT take Vitamin E. Buy the prescription bowel preparation solution at your local pharmacy [facility] 08/2019 Bowel Preparation Instructions for: Golytely, Nulytely, Trilyte or Colyte (polyethylene glycol 3350 and electrolytes) Three (3) Days Before Your Colonoscopy Do NOT eat high-fiber foods - such as popcorn, beans, seeds (flax, sunflower, quinoa), multigrain bread, nuts, salad/vegetables, or fresh and dried fruit. One (1) Day Before Your Colonoscopy Only drink clear liquids the ENTIRE DAY before your colonoscopy. Do NOT eat any solid foods. Drink at least 8 ounces of clear liquids every hour after waking up. The clear liquids you can drink include: Clear Liquid (NO RED LIQUIDS) DO NOT DRINK Gatorade, Pedialyte or Powerade Clear broth or bouillon Coffee or tea (no milk or non-dairy creamer) Carbonated and non-carbonated soft drinks Maximus-Aid or other fruit flavored drinks Strained fruit juices (no pulp) Jell-O, popsicles, hard candy Water Alcohol Milk or non-dairy creamers Noodles or vegetables in soup Juice with pulp Liquid you cannot see through Do not use tobacco/vaping products The bowel preparation solution will be consumed in two parts. Mix the solution the evening before your colonoscopy and refrigerate before drinking. You may add the flavor pack that came with the bowel preparation. Do NOT add ice, sugar or any other flavorings to the solution. Part 1 At 6:00 PM - Evening before your colonoscopy Drink an 8-oz glass of bowel preparation every 10 minutes for a total of 8 glasses. You may continue to drink clear liquids until midnight. Part 2 On the day of your colonoscopy you may drink clear liquids up to (three) 3 hours before your procedure. 4 1/2 hours before your colonoscopy Drink an 8-oz glass of bowel preparation every 10 minutes for a total of 8 glasses. Fifteen (15) minutes later, drink an 8-oz glass of clear liquids every 15 minutes for a total of 2 glasses. You may continue to drink clear liquids up to (three) 3 hours before your exam. 2 08/2019 documented in this encounter [facility] 02-20-2023 Nurse Note Patient passing a small amount of bright red blood via rectum. Dr. Rai notified. No new orders given. Dr. Rai is going to stop and see the patient. Patient passing a large amount of air via rectum. Patient states that he is starting to feel much better. Patient's belly is starting to soften but remains distended. Ambulated in the lester and sat on the commode for a bit. Now he is in the knees to abdomen position belly down. Will continue to monitor. Abdomen firm and distended. Will continue to monitor. Patient is passing a moderate amount of air via rectum. Per Dr. Rai, patients next colonoscopy needs be be performed with an Adult scope. Kenneth Olivo RN documented in this encounter [facility] 02-20-2023 History and physical note Images from the original note were not included. HISTORY AND PHYSICAL Amilcar Kendrick 1950 REFERRING PHYSICIAN: Self CHIEF COMPLAINT: Consult (Colonoscopy consult) HPI: The patient is a 72 year old male referred for endoscopy. Amilcar notes a history of colon polyps and presents to discuss surveillance colonoscopy. Patient denies any change in bowel habits, weight changes, blood in stools, black tarry stools or abdominal pain. Denies family history of colon issues. The patient notes no upper GI complaints. Amilcar has undergone prior endoscopy. Last colonoscopy 04/24/[address] Rai at [facility] with adenomatous polyp removed. Patient denies chest pain, shortness of breath or recent hospitalizations. Denies problems with sedation in the past. PAST MEDICAL HISTORY PAST MEDICAL HISTORY Diagnosis Date Essential hypertension Sciatica PAST SURGICAL HISTORY PAST SURGICAL HISTORY Procedure Laterality Date BACK SURGERY HX COLONOSCOPY SCREENING 04/01/2018 [facility] with Cecelia 3 year follow up CURRENT MEDICATIONS Current Outpatient Medications Medication Sig VITAMIN A ORAL Take 1 tablet by mouth once daily. vitamin E (AQUAVIT-E ORAL) Take 1 tablet by mouth once daily. MULTIVITAMIN ORAL Take by mouth. ibuprofen (MOTRIN) 600 mg tablet Take 600 mg by mouth every 6 hours as needed. amLODIPine (NORVASC) 10 mg tablet Take 10 mg by mouth once daily. benazepril (LOTENSIN) 20 mg tablet Take 20 mg by mouth once daily. No current facility-administered medications for this visit. ALLERGIES: Hydrochlorothiazide and Valsartan PERSONAL HISTORY: SOCIAL HISTORY Social History Tobacco Use Smoking status: Former Types: Cigarettes Quit date: 1968 Years since quittin.4 Smokeless tobacco: Never Vaping Use Vaping Use: Never used Substance Use Topics Alcohol use: Yes Comment: occasional Drug use: Never FAMILY HISTORY: FAMILY HISTORY FAMILY HISTORY Problem Relation Age of Onset other (cva) Mother Hypertension Mother Hypertension Father REVIEW OF SYMPTOMS: The review of systems data was entered by the nurse and reviewed by ms Nursing Notes: Rachel Nash RN 02/04/2023 8:18 AM Signed REVIEW OF SYSTEMS: General: The patient denies fatigue, denies weight loss, denies weight gain, denies feeling hot, and denies feelings of cold. Eyes: The patient denies glaucoma, denies eye injury/surgery, wears glasses or contacts. Ear/Nose/Throat: The patient NOTES allergies, denies hayfever, denies ear infections, and denies bloody noses. Cardiovascular: The patient denies chest pain, denies heart disease, NOTES high blood pressure,denies cardiac stent, denies prior heart attack, denies irregular heart beat, denies high cholesterol, denies poor circulation, denies heart failure, other cardiac issues, denies claudication, denies cold feet, denies peripheral arterial stent. Respiratory: The patient denies tuberculosis, denies pneumonia, denies frequent cough, denies pulmonary embolism, denies shortness of breath, and denies coughing up blood. Gastrointestinal: The patient denies difficulty swallowing, denies acid reflux, denies ulcers, denies vomiting, denies jaundice/hepatitis, denies gallbladder problems, denies black or tarry stools, denies hemorrhoids, NOTES bleeding from rectum, denies diverticulitis, denies constipation, denies diarrhea, denies loss of stool control, and denies hernias. Kidney/Bladder: The patient denies kidney stones, denies urine infections, and denies bloody urine. Skin: The patient denies a history of skin cancer, denies bleeding/changing moles, and denies a history of skin rash. Neurologic: The patient denies a history of epilepsy/convulsions, denies headaches, denies head/spinal injuries, and denies stroke/TIA. Psychiatric: The patient denies psychiatric medications, denies depression, and denies voices, denies substance abuse. Endocrine: The patient denies thyroid disorders, denies diabetes, and denies hormonal problems. Hematologic: The patient denies a history of bruising, denies bleeding, and denies anemia, denies blood clots. Infections: The patient denies a history of measles and mumps, denies rheumatic fever, and denies sexually transmitted diseases. Musculoskeletal: The patient denies back pain/injury, denies back problems, NOTES sciatica, denies knee/foot trouble, denies arthritis, or denies gout. When was patient's last Mammogram screening? N/A Last Colonoscopy: 2018 Rachel Nash RN I have confirmed and edited as necessary, the PFSH and ROS obtained by others. Porsha Norman PA-C PHYSICAL EXAMINATION: General: The patient is 72 year old male, well nourished, well hydrated in no acute distress. The patient is oriented to time, place, and person. VITALS: Blood pressure 138/80, pulse 78, temperature 36.6 C (97.8 F), height 172.7 cm (5' 8 ), weight 92.4 kg (203 lb 12.8 oz), SpO2 96 %. Body mass index is 30.99 kg/m . HEENT: Normal cephalic, ataumatic, pupils are equally round, sclera are anicteric, mucous membranes are moist, oropharynx is clear. Neck has no masses, asymmetry or lymphadenopathy. Respiratory: Clear to auscultation and percussion. Normal respiratory excursion and pattern. Cardiac: Examination is regular rate and rhythm. Normal S1/S2 Abdominal exam: Soft, nontender, with no palpable masses. No hepatosplenomegaly. No palpable hernias. Extremities: no clubbing, cyanosis or edema. No adenopathy. LABORATORY VALUES: As Noted RADIOLOGIC STUDIES: As Noted Assessment IMPRESSION: personal history of colon polyps, encounter for high-risk surveillance colonoscopy PLAN: I have reviewed my findings with the surgeon. Will plan for lower endoscopy. We discussed the risks and benefits of the planned endoscopy. I have informed the patient that complications can occur including failure to complete the endoscopy and perforation. The patient had the opportunity to ask questions concerning the planned endoscopy. My staff has also explained the procedure to the patient in understandable terms and has given the patient printed material concerning the procedure. The patient freely consents to surgery. I plan to use Miralax bowel preparation I have explained to the patient the difference between IV conscious sedation and MAC anesthesia - and I have offered either, according to the patient's wishes. I have explained that with IV conscious sedation there is no anesthesia provider available and therefore there is a limitation of the amount of IV medications that can be given and that the patient may wake up in the middle of the procedure and/or experience pain/discomfort during the procedure. Further discussion was done and the patient was given the opportunity to ask questions and all questions were answered. The patient chooses IV conscious sedation Diagnoses: (Z12.11) Encounter for screening for malignant neoplasm of colon (primary encounter diagnosis) (Z86.010) History of colonic polyps I spent a total of 32 minutes on the date of the service which included preparing to see the patient, [id number] patient care, completing clinical documentation, obtaining and/or reviewing separately obtained history, performing a medically appropriate examination, counseling and educating the patient/family/caregiver, and ordering medications, tests, or procedures. Porsha Norman PA-C UPDATED HISTORY AND PHYSICAL EXAMINATION SERVICE DATE: 02/20/2023 SERVICE TIME: 9:45 AM PHYSICAL EXAM MUST BE COMPLETED ON ADMISSION The History and Physical (completed in the past 30 days) has been reviewed and the patient has been examined. The contents accurately reflect the patient's condition with the following additions or revisions since the H&P was completed. Examination indicates no changes. This H&P can be found in the attached. SIGNATURE: Tim Rai III, MD PATIENT NAME: Amilcar Kendrick DATE: February 20, 2023 TIME: 9:45 AM documented in this encounter [facility] 02-12-2023 Miscellaneous Notes Rx sent Patient is asking prep Golytely instead of Miralax/Dulcolax Please send to [facility] in [place] [employer] 02/20/2023 colon asc documented in this encounter [facility] 02-04-2023 Note HNO ID: [id number] Author: Porsha Norman PA-C Service: ? Author Type: Physician Appraisal Analyst Type: Progress Notes Filed: 02/10/2023 12:12 PM Note Text: HISTORY AND PHYSICAL Amilcar Kendrick 1950 REFERRING PHYSICIAN: Self CHIEF COMPLAINT: Consult (Colonoscopy consult) HPI: The patient is a 72 year old male referred for endoscopy. Amilcar notes a history of colon polyps and presents to discuss surveillance colonoscopy. Patient denies any change in bowel habits, weight changes, blood in stools, black tarry stools or abdominal pain. Denies family history of colon issues. The patient notes no upper GI complaints. Amilcar has undergone prior endoscopy. Last colonoscopy 04/24/[address] Rai at [facility] with adenomatous polyp removed. Patient denies chest pain, shortness of breath or recent hospitalizations. Denies problems with sedation in the past. PAST MEDICAL HISTORY Diagnosis Date Essential hypertension Sciatica PAST SURGICAL HISTORY Procedure Laterality Date BACK SURGERY HX COLONOSCOPY SCREENING 04/01/2018 [facility] with Cecelia 3 year follow up Current Outpatient Medications Medication Sig VITAMIN A ORAL Take 1 tablet by mouth once daily. vitamin E (AQUAVIT-E ORAL) Take 1 tablet by mouth once daily. MULTIVITAMIN ORAL Take by mouth. ibuprofen (MOTRIN) 600 mg tablet Take 600 mg by mouth every 6 hours as needed. amLODIPine (NORVASC) 10 mg tablet Take 10 mg by mouth once daily. benazepril (LOTENSIN) 20 mg tablet Take 20 mg by mouth once daily. No current facility-administered medications for this visit. ALLERGIES: Hydrochlorothiazide and Valsartan PERSONAL HISTORY: Social History Tobacco Use Smoking status: Former Types: Cigarettes Quit date: 1967 Years since quittin.4 Smokeless tobacco: Never Vaping Use Vaping Use: Never used Substance Use Topics Alcohol use: Yes Comment: occasional Drug use: Never FAMILY HISTORY: FAMILY HISTORY Problem Relation Age of Onset other (cva) Mother Hypertension Mother Hypertension Father REVIEW OF SYMPTOMS: The review of systems data was entered by the nurse and reviewed by me Nursing Notes: Rachel Nash RN 02/04/2023 8:18 AM Signed REVIEW OF SYSTEMS: General: The patient denies fatigue, denies weight loss, denies weight gain, denies feeling hot, and denies feelings of cold. Eyes: The patient denies glaucoma, denies eye injury/surgery, wears glasses or contacts. Ear/Nose/Throat: The patient NOTES allergies, denies hayfever, denies ear infections, and denies bloody noses. Cardiovascular: The patient denies chest pain, denies heart disease, NOTES high blood pressure,denies cardiac stent, denies prior heart attack, denies irregular heart beat, denies high cholesterol, denies poor circulation, denies heart failure, other cardiac issues, denies claudication, denies cold feet, denies peripheral arterial stent. Respiratory: The patient denies tuberculosis, denies pneumonia, denies frequent cough, denies pulmonary embolism, denies shortness of breath, and denies coughing up blood. Gastrointestinal: The patient denies difficulty swallowing, denies acid reflux, denies ulcers, denies vomiting, denies jaundice/hepatitis, denies gallbladder problems, denies black or tarry stools, denies hemorrhoids, NOTES bleeding from rectum, denies diverticulitis, denies constipation, denies diarrhea, denies loss of stool control, and denies hernias. Kidney/Bladder: The patient denies kidney stones, denies urine infections, and denies bloody urine. Skin: The patient denies a history of skin cancer, denies bleeding/changing moles, and denies a history of skin rash. Neurologic: The patient denies a history of epilepsy/convulsions, denies headaches, denies head/spinal injuries, and denies stroke/TIA. Psychiatric: The patient denies psychiatric medications, denies depression, and denies voices, denies substance abuse. Endocrine: The patient denies thyroid disorders, denies diabetes, and denies hormonal problems. Hematologic: The patient denies a history of bruising, denies bleeding, and denies anemia, denies blood clots. Infections: The patient denies a history of measles and mumps, denies rheumatic fever, and denies sexually transmitted diseases. Musculoskeletal: The patient denies back pain/injury, denies back problems, NOTES sciatica, denies knee/foot trouble, denies arthritis, or denies gout. When was patient's last Mammogram screening? N/A Last Colonoscopy: 2018 Rachel Nash RN I have confirmed and edited as necessary, the PFSH and ROS obtained by others. Porsha Norman PA-C PHYSICAL EXAMINATION: General: The patient is 72 year old male, well nourished, well hydrated in no acute distress. The patient is oriented to time, place, and person. VITALS: Blood pressure 138/80, pulse 78, temperature 36.6 ?C (97.8 ?F), height 172.7 cm (5' 8 ), weight 92.4 kg (203 lb 12.8 oz), SpO2 96 %. (more content not included)... [facility] Personal history of colonic polyps- Primary [facility] Diagnosis Encounter for screening for malignant neoplasm of colon- Primary Special screening for malignant neoplasms, colon Personal history of colonic polyps [facility] [place] [facility] Diagnosis Personal history of colonic polyps- Primary documented in this encounter [facility] for referral (narrative)* Outpatient Procedure (Routine) - Authorized Specialty Diagnoses / Procedures Referred By Akosua romano Referred To Contact [facility] Diagnoses Personal history of colonic polyps Procedures COLONOSCOPY DIAGNOSTIC COLONOSCOPY DIAGNOSTIC COLONOSCOPY FLX DX W/COLLJ SPEC WHEN Tim Lemus MD [address] [place] [address] [address] Referral ID Status Reason Start Date Expiration Date Visits Requested Visits Authorized [id number] Authorized Auto-Generat ed Referral 02/28/2023 02/29/2024 1 1 [facility] for referral (narrative)* Outpatient Procedure (Routine) - Closed Specialty Diagnoses / Procedures Referred By Akosua rmoano Referred To Contact [facility] Diagnoses Personal history of colonic polyps Procedures COLONOSCOPY SCREENING COLONOSCOPY FLX DX W/COLLJ SPEC WHEN Porsha Mina PA-C [address] [place] [address] [address] Referral ID Status Reason Start Date Expiration Date V isits Requested Visits Authorized [id number] Closed Auto-Generate d Referral 02/04/2023 02/05/2024 1 1 [facility] for referral (narrative)* Outpatient Procedure (Routine) - Closed Specialty Diagnoses / Procedures [facility] Diagnoses Personal history of colonic polyps Procedures COLONOSCOPY DIAGNOSTIC COLONOSCOPY DIAGNOSTIC COLONOSCOPY FLX DX W/COLLJ SPEC WHEN Tim Lemus MD [address] [place] [address] [address] Referral ID Status Reason Start Date Expiration Date V isits Requested Visits Authorized [id number] Closed Auto-Generate d Referral 02/28/2023 02/29/2024 1 1 [facility] for visit Narrative* Outpatient Procedure (Routine) - Closed Specialty Diagnoses / Procedures Referred By Contac t Referred To Contact [facility] Diagnoses Personal history of colonic polyps Procedures COLONOSCOPY SCREENING COLONOSCOPY FLX DX W/COLLJ SPEC WHEN PFRMD Porsha Norman PA-C [address] [place] [address] [address] Referral ID Status Reason Start Date Expiration Date V isits Requested Visits Authorized [id number] Closed Auto-Generate d Referral 02/04/2023 02/05/2024 1 1 [facility] for visit Narrative* Outpatient Procedure (Routine) - Closed Specialty Diagnoses / Procedures Referred By Contac t Referred To Contact [facility] Diagnoses Personal history of colonic polyps Procedures COLONOSCOPY DIAGNOSTIC COLONOSCOPY DIAGNOSTIC COLONOSCOPY FLX DX W/COLLJ SPEC WHEN Tim Lemus MD [address] [place] [address] [address] Referral ID Status Reason Start Date Expiration Date V isits Requested Visits Authorized [id number] Closed Auto-Generate d Referral 02/28/2023 02/29/2024 1 1 [facility] Reason for Referral Specialty Diagnoses / Procedures Referred By Contac t Referred To Contact Porsha Norman PA-C [address] [place] [address] Referral ID Status Reason Start Date Expiration Date V isits Requested Visits Authorized [id number] Pending Review 1 1 Specialty Diagnoses / Procedures Referred By Contac t Referred To Contact [facility] Diagnoses Personal history of colonic polyps Procedures COLONOSCOPY SCREENING COLONOSCOPY FLX DX W/COLLJ SPEC WHEN PFRMD Porsha Norman PA-C [address] [place] [address] [facility] [address] [place] [address] Referral ID Status Reason Start Date Expiration Date V isits Requested Visits Authorized [id number] Closed Auto-Generate d Referral 02/04/2023 02/05/2024 1 1 Summary Purpose Family History No Family History Records Found Advance Directives No Advanced Directives Records Found Medications Administered Section Inactive Administered Medications - up to 3 most recent administrations Medication Order MAR Action Action Date Dose Rate Site diphenhydrAMINE 12.5-50 mg injection (BENADRYL) 12.5-50 mg, INTRAVENOUS, DIRECTED, Starting on Eneida 02/20/23 at 1030, Until Ene[place] 02/20/23 at 1429, DOSING DIRECTED BY PHYSICIAN FOR PROCEDURAL SEDATION ONLY, Intraprocedure Given 02/20/2023 10:00 AM EDT 50 mg fentaNYL 50 mcg/mL 25-100 mcg injection (SUBLIMAZE) 25-100 mcg, INTRAVENOUS, DIRECTED, Starting on Fri02/20/23 at 1030, Until Ene[place] 02/20/23 at 1429, DOSING DIRECTED BY PHYSICIAN FOR PROCEDURAL SEDATION ONLY, Intraprocedure Given 02/20/2023 10:11 AM EDT 50 mcg Inactive Administered Medications - up to 3 most recent administrations Medication Order MAR Action Action Date Dose Rate Site diphenhydrAMINE 12.5-50 mg injection (BENADRYL) 12.5-50 mg, INTRAVENOUS, DIRECTED, Starting on Fri06/02/23 at 0800, Until Fri06/02/23 at 1159, DOSING DIRECTED BY PHYSICIAN FOR PROCEDURAL SEDATION ONLY, Intraprocedure Given 06/02/2023 8:01 AM EDT 50 mg fentaNYL 50 mcg/mL 25-100 mcg injection (SUBLIMAZE) 25-100 mcg, INTRAVENOUS, DIRECTED, Starting on Fri06/02/23 at 0800, Until Fri06/02/23 at 1159, DOSING DIRECTED BY PHYSICIAN FOR PROCEDURAL SEDATION ONLY, Intraprocedure Given 06/02/2023 7:58 AM EDT 50 mcg lactated ringers iv infusion 30 mL/hr, INTRAVENOUS, CONTINUOUS, Starting on Fri06/02/23 at 0800, Until Fri06/02/23 at 0821, Preprocedure New Bag/Syringe/Marla le 06/02/2023 7:35 AM EDT 30 mL/hr 30 mL/hr Arm, Right midazolam 1-5 mg injection (VERSED) 1-5 mg, INTRAVENOUS, DIRECTED, Starting on Fri06/02/23 at 0800, Until Fri06/02/23 at 1159, DOSING DIRECTED BY PHYSICIAN FOR PROCEDURAL SEDATION ONLY, Intraprocedure Given 06/02/2023 7:58 AM EDT 3 mg Additional Source Comments Source Comments (unrecognize d section and content) In the event this informatio n is protected by the Federal Confidentiality of Alcohol and Drug Abuse Patient Records regulations: The Federal rules restrict any use of the information to criminally investigate or prosecute any alcohol or drug abuse patient.[facility] the event this information is protected by the Federal Confidentiality of Alcohol and Drug Abuse Patient Records regulations: The Federal rules restrict any use of the information to criminally investigate or prosecute any alcohol or drug abuse patient.[facility] the event this information is protected by the Federal Confidentiality of Alcohol and Drug Abuse Patient Records regulations: The Federal rules restrict any use of the information to criminally investigate or prosecute any alcohol or drug abuse patient.[facility] the event this information is protected by the Federal Confidentiality of Alcohol and Drug Abuse Patient Records regulations: The Federal rules restrict any use of the information to criminally investigate or prosecute any alcohol or drug abuse patient.[facility] the event this information is protected by the Federal Confidentiality of Alcohol and Drug Abuse Patient Records regulations: The Federal rules restrict any use of the information to criminally investigate or prosecute any alcohol or drug abuse patient.[facility] Care Teams (unrecognized sec tion and content) Nurse Advocate Relationship Specialty Start Date End Date Maryellen Chaidez DO [address] [address] (Fax) PCP - General Family Medicine 02/03/23 Nurse Advocate Relationship Specialty Start Date End Date Maryellen Chaidez DO [address] [place] [address] (Fax) PCP - General Family Medicine 02/03/23 Nurse Advocate Relationship Specialty Start Date End Date Maryellen Chaidez DO [address] [place] [address] (Fax) PCP - General Family Medicine 02/03/23 Nurse Advocate Relationship Specialty Start Date End Date Maryellen Chaidez DO [address] [place] [address] (Fax) PCP - General Family Medicine 02/03/23 Reason for Visit (unrecogniz ed section and content) Reason Comments 02/20/2023 colon asc (unrecognized sect ion and content) No Status Records Found INFORMATION SOURCE (unrecogn ized section and content) FOR RECORDS PERTAINING TO PATIENTS WHO ARE OR HAVE BEEN ENROLLED IN A CHEMICAL DEPENDENCY/SUBSTANCEABUSE PROGRAM, SOME INFORMATION MAY BE OMITTED. This clinical summary was aggregated from multiple sources. Caution should be exercised in using it in the provision of clinical care. This summary normalizes information from multiple sources, and as a consequence, information in this document may materially change the coding, format and clinical context of patient data. In addition, data may be omitted in some cases. CLINICAL DECISIONS SHOULD BE BASED ON THE PRIMARY CLINICAL RECORDS. [employer] provides no warranty or guarantee of the accuracy or completeness of information in this document.
[2023-08-29 12:29] LABS: Absolute Neutrophil Count 8.6 X10^3/uL (2.0-7.7); Basophil# 0.05 X10^3/uL; Basophil% 0.4 % (0-1); Eosinophil# 0.15 X10^3/uL; Eosinophils% 1.3 % (0-5); Hematocrit 48.8 % (40-54); Hemoglobin 16.3 g/dL (13.0-16.5); Lymphocyte % 16.3 % (19-41); Mean Corp Hgb Conc 33.4 g/dL (32-36); Mean Corpuscular Hgb 30.5 pg (27.0-32.0); Mean Corpuscular Volume 91.4 fL (80-94); Mean Platelet Vol. 9.3 fl (6.2-12.0); Monocyte# 0.84 X10^3/uL; Monocyte% 7.2 % (0-10); NRBC Flagged by Analyzer 0 % (0-5); Neutrophil # 8.57 X10^3/uL (2.7-7.7); Neutrophil % 73.7 % (47-70); Platelet Count 310 K/mm3 (150-450); RBC Distribution Width CV 13.4 % (11.6-14.6); RBC Distribution Width SD 45.1 fl (35.1-43.9); Red Blood Count 5.34 M/mm3 (4.6-6.2); White Blood Count 11.6 K/mm3 (4.4-11.0)
== END | disposition home or self-care (01) ==
LOC: BIMLAB 10:33
PROVIDERS: PCP Family Medicine; Referring Provider Family Medicine; Visit Provider Family Medicine
DX: D72.9 Disorder of white blood cells, unspecified (principal)
CPT/HCPCS: 36415; 85025

== ENCOUNTER 2023-09-02 10:30 | Outpatient (RCR) | payer MEDICARE, BC, SELFPAY ==
--- NOTE | 2023-08-12 11:47 | HP.PTEVAL ---
Patient's Visit Information Visit Information Visit Information: MIRA FELICIANO is a 73 year old M referred to Physical Therapy by DANY Thompson with a diagnosis of B hip OA and LBP. Date of Evaluation: 08/12/23 Physical Therapist: Heber Willoughby, NARDAT, OCS, CSCS Visit Plan Frequency: 2-3x /Week Duration: 4-6 Weeks Plan: 2-3x/week for 4-6 starting aquatic therapy for R hip ROM, quad and HS stretching and hip and core and LE strength. Please progress to HEP as tolerated and consider land therapy after three weeks of pool Subjective Subjective: I have problem with hip on r side. Put on meds and may have injection, surgery last resort. One month ago was hunting on Friday night and next day R leg hurt in the groin and down leg as day progressed. Saw chiropractor which could not help him. Went to family doctor who gave him meds that did not help. Went to [facility] and had x rays...no problem in knee but hip. Still has pain in groin and down R leg to knee cap. hard to lift R leg to go up steps. No obvious injury . L hip feels good. LB has normal pain as he had surgery in 2016 describing fusion. also given another meds at [facility] describing steroid pack whcih is helping 50%. sleep is OK since the new meds. Activity: avoiding hunting b/.c he cannot walk far. Limits WB at home with activity like yard work. Basic ADLS: are getting done Ok. Works in office sitting job. Pain R hip and leg: Pain Intensity (Out of 10): 0 Pain Intensity Range: 0 and 5 Comment: only when on it or walking long/standing. Objective Objective: R antalgia in I gait today avoiding hip extension at end of stance. Transfers bed adn chair I, painful to lift R LE in groin and quad area. steps are reciprocal, pain in R groin and quad ascending. LB AROM mod limited in extension without pain, flexion and SB are min to mod limtied and no pain. Hip AROM WFL with tightness in quad B and HS B at -35 90/90 test B. R hip PROM ere and IR are painful in front of leg as is end range flexion on R. L shows no pain. + THAO, + FADDIR and + R hip scour. - slump and - SLR. reflexes 2/3 patella and achilles sensation LE WNL to gross light touch. strength is 4+ in ankles and knees and 4 in L hip but 4- with pain in R hip abd and flexion. extension 3+ B without pain. Balance/Special Test Scores Lower Extremity Functional Score: 19 Goals Goal 1:: Pain 1/10 at worst adn 75% better overall after weaning steroids. Goal Time Frame: 4-6 Weeks Goal 2:: I appropriate HEP for Hip OA quad strethc, hip strengh, core strength and hip ROM to minimize future problems. Goal Time Frame: 4-6 Weeks Goal 3:: LEFS score 39+ Goal Time Frame: 4-6 Weeks Goal 4:: Patient able to walk to vega without increased pain Goal Time Frame: 4-6 Weeks Rehabilitation Potential Physical Therapy Diagnosis: Limited activity due to R hip pain likely OA in nature. Rehabilitation Potential: Fair Anticipated Interventions Patient/Client Instruction: Educate patient on: Condition and Plan of Care For the Purpose of:: To decrease pain, To increase ROM, To improve nutrient delivery to tissue, To improve muscle performance and motor function, To increase tolerance to activity/condition/position and To improve ability of physical actions for home/community/work/leisure Therapeutic Exercise to Include: Strength training, Flexibilty training, Passive ROM and Active ROM For the Purpose of:: To decrease pain, To decrease swelling/inflammation, To improve nutrient delivery to tissue, To improve muscle performance and motor function, To increase tolerance to activity/condition/position and To improve ability of physical actions for home/community/work/leisure Text: Thank you for the opportunity to evaluate your patient. For Medicare and Medicare HMO plans, please review the plan of care and approve it. It will need to be FAXED BACK to us at [phone] for Medicare purposes. For Medicare only, by signing this I certify the plan of care. Please let me know if there are questions or concerns regarding this plan of care. Physician Signature: Date:
--- NOTE | 2023-09-02 11:03 | HP.PTREVAL ---
Re-Evaluation Intro: DANY Thompson, It has been my pleasure to treat MIRA FELICIANO over the last 8 visits for B hip OA and LBP. Please see the progress note below for an update on the physical therapy plan of care! Subjective Subjective: Pool is helpful. Things are much easier in the water. Overall the pool helped, pain going to knee is less. More constant pain in L groin. 5/10. comfortable in NWB mostly. I can now find sleep more comfortable. Sees doctor [facility]OS[facility] Friday. Doing stretches at home but sink exercise seem to hurt. Will seek MRI on Friday when sees doctor. Objective Objective/Function: Walks with slight wide AMY but not much antalgia and I today. Limited hip flexion due to some R groin pain and into quad. R quad is tight and bothers knee to stretch. Hop PROM is limited in flexion 90 due to anterior pain, IR to 8 degrees and er to 40 with pain in R medial thigh and knee. Plan Plan Plan: Pt wishes to continue in pool on his own and get doctor's opinion on further steps. Further land based therapy for NWB strength or gym based program is an option if no other viable options for patient. In that case, would see 2-3x/week for 3 weeks to teach that program and monitor. Pt to call after doctor visit if wishes to return otherwise will continue in pool 2-3x/week at [facility]. Balance/Gait/Functional tests Balance/Special Test Scores Lower Extremity Functional Score: 26 Goals Goals Goal 1:: Pain 1/10 at worst adn 75% better overall after weaning steroids. Goal Time Frame: 4-6 Weeks Goal Progress: 50% Goal 2:: I appropriate HEP for Hip OA quad strethc, hip strengh, core strength and hip ROM to minimize future problems. Goal Time Frame: 4-6 Weeks Goal Progress: pool met Goal 3:: LEFS score 39+ Goal Time Frame: 4-6 Weeks Goal Progress: Progressing Goal 4:: Patient able to walk to vega without increased pain Goal Time Frame: 4-6 Weeks Goal Progress: Progressing Anticipated Interventions Anticipated Interventions Patient/Client Instruction: Educate patient on: Condition and Plan of Care For the Purpose of:: To decrease pain, To increase ROM, To improve nutrient delivery to tissue, To improve muscle performance and motor function, To increase tolerance to activity/condition/position and To improve ability of physical actions for home/community/work/leisure Therapeutic Exercise to Include: Strength training, Flexibilty training, Passive ROM and Active ROM For the Purpose of:: To decrease pain, To decrease swelling/inflammation, To improve nutrient delivery to tissue, To improve muscle performance and motor function, To increase tolerance to activity/condition/position and To improve ability of physical actions for home/community/work/leisure Re-Evaluation Ending Re-evaluation ending: Please do not hesitate to contact me at [phone] by phone or if you have questions or concerns regarding this new plan of care! Sincerely, Heber Willoughby, DPT, OCS, CSCS
== END 2023-09-02 19:00 | disposition home or self-care (01) ==
LOC: PT 10:30
PROVIDERS: PCP Family Medicine; Referring Provider Physician Assistant; Visit Provider Physician Assistant
DX: M16.0 Bilateral primary osteoarthritis of hip (principal); M54.50 Low back pain, unspecified
CPT/HCPCS: 97113; 97161; 97164

== ENCOUNTER → 2023-09-03 | Outpatient (CLI) | payer MEDICARE, BC, SELFPAY ==
--- OUTSIDE RECORDS SUMMARY | 2023-09-03 12:23 | XMS RPT_ITS | CCD ---
Author Name Unknown Address [address] [place] [address] Organization [facility] Care Team Providers Care [employer] Department Manager Name Role Phone Maryellen Chaidez DO Primary [...] Translations: [HYDROCHLOROTHIAZ ZEINAB] Drug Allergy 02-03-2023 Swelling [facility] (6 sources) valsartan; Translations: [VALSARTAN] Drug Allergy 02-03-2023 Swelling [facility] Medications Current Medications Medication Drug Class(es) Dates Sig (Normalized) Sig (Original) polyethylene glycol 3350 167925 mg / potassium chloride 2970 mg / sodium bicarbonate 6740 mg / sodium chloride 5860 mg / sodium sulfate 13859 mg powder for oral solution (3 sources) [...] 79 mm[Hg] Tim Rai MD Work Phone: [facility] 06-02-2023 08:50-0400 Heart rate 68 /min Tim Rai MD Work Phone: [facility] 06-02-2023 08:50-0400 Respiratory rate 16 /min Tim Rai MD Work Phone: [facility] 06-02-2023 08:50-0400 SaO2% (BldA) [Mass fraction] 96 % Tim Rai MD Work Phone: [facility] 06-02-2023 08:50-0400 Systolic blood pressure 139 mm[Hg] Tim Rai MD Work Phone: [facility] 06-02-2023 07:39-0400 Body temperature 97.3 [degF] Tim Rai MD Work Phone: [facility] 06-02-2023 07:39-0400 Body weight 92.1 kg Tim Rai MD Work Phone: [facility] 02-28-2023 08:14-0400 Body temperature 97 [degF] Tim Rai MD Work Phone: [facility] 02-28-2023 08:14-0400 Body weight 92.08 kg Tim Rai MD Work Phone: [facility] 02-28-2023 08:14-0400 Diastolic blood pressure 78 mm[Hg] Tim Rai MD Work Phone: [facility] 02-28-2023 08:14-0400 Heart rate 82 /min Tim Rai MD Work Phone: [facility] 02-28-2023 08:14-0400 SaO2% (BldA) [Mass fraction] 96 % Tim Rai MD Work Phone: [facility] 02-28-2023 08:14-0400 Systolic blood pressure 136 mm[Hg] Tim Rai MD Work Phone: [facility] 02-20-2023 11:10-0400 Diastolic blood pressure 94 mm[Hg] Tim Rai MD Work Phone: [facility] 02-20-2023 11:10-0400 Heart rate 73 /min Tim Rai MD Work Phone: [facility] 02-20-2023 11:10-0400 Respiratory rate 16 /min Tim Rai MD Work Phone: [facility] 02-20-2023 11:10-0400 SaO2% (BldA) [Mass fraction] 95 % Tim Rai MD Work Phone: [facility] 02-20-2023 11:10-0400 Systolic blood pressure 170 mm[Hg] Tim Rai MD Work Phone: [facility] 02-20-2023 09:21-0400 Body temperature 97 [degF] Tim Rai MD Work Phone: [facility] 02-20-2023 09:21-0400 Body weight 92.4 kg Tim Rai MD Work Phone: [facility] Encounters Encounter Date Encounter Type Care Provider Facility Start: 06-02-2023 End: 06-02-2023 ambulatory TIM RAI Facility:[facility] Start: 06-02-2023 End: 06-02-2023 Subsequent hospital visit by physician Tim Rai MD Work Phone: Ambulatory Surgery Procedures Date Procedure Procedure Detail Performing Clinician Start: 06-02-2023 Colonoscopy flx dx w /collj spec when pfrmd Tim Rai MD Work Phone: Start: 06-02-2023 Colonoscopy Tim tobin MD Work Phone: Start: 02-20-2023 Colonoscopy flx dx w /collj spec when pfrmd Porsha Klagetoh PA-C Work Phone: Start: 02-20-2023 Colonoscopy Porsha Gra f PA-C Work Phone: Plan of Treatment Date Care Activity Detail Author Start: 06-02-2024 Colonoscopy Colonoscopy [facility] Start: 06-02-2024 Colorectal Cancer Screening Colorectal Cancer Screening [facility] Start: 02-21-2024 Colonoscopy COLONOSCOPY [facility] Start: 02-21-2024 COLORECTAL CANCER SCREENING COLORECTAL CANCER SCREENING [facility] Start: 05-02-2023 Influenza vaccination [facility] Start: 09-01-2022 ADVANCE DIRECTIVE DISCUSSION ADVANCE DIRECTIVE DISCUSSION [facility] Start: 09-01-2022 DEPRESSION ASSESSMENT DEPRESSION ASSESSMENT [facility] Start: 2013 Pneumococcal Vaccine: 65+ (1 - PCV) Pneumococcal Vaccine: 65+ (1 - PCV) [facility] Start: 2013 PNEUMOCOCCAL: 65+ (1 - PCV) PNEUMOCOCCAL: 65+ (1 - PCV) [facility] Start: 1998 SHINGRIX VACCINE (1 of 2) SHINGRIX VACCINE (1 of 2) [facility] Start: 1993 COLOGUARD (FIT-DNA) COLOGUARD (FIT-DNA) [facility] Start: 1993 Colonoscopy COLONOSCOPY [facility] Start: 1993 COLORECTAL CANCER SCREENING COLORECTAL CANCER SCREENING [facility] Start: [address] COLONOGRAPHY [facility] Start: 1993 DIABETES SCREEN DIABETES SCREEN [facility] Start: 1993 Diabetes Screening Diabetes Screening [facility] Start: 1993 FECAL OCCULT BLOOD FECAL OCCULT BLOOD [facility] Start: 1993 SIGMOIDOSCOPY SIGMOIDOSCOPY [facility] Start: 1983 Lipid 1996 panel - Serum or Plasma Lipid Screening [facility] Start: 1983 LIPID SCREEN LIPID SCREEN [facility] Start: 1967 Urine microalbumin profile [facility] Start: 1966 HEPATITIS C SCREENING HEPATITIS C SCREENING [facility] Start: 02-08-1949 COVID-19 VACCINE (#1) COVID-19 VACCINE (#1) [facility] Start: 1950 ABDOMINAL AORTIC ANEURYSM SCREENING ABDOMINAL AORTIC ANEURYSM SCREENING [facility] End: 02-29-2024 COLONOSCOPY DIAGNOSTIC COLONOSCOPY DIAGNOSTIC Endoscopy Routine Personal history of colonic polyps 1 Occurrences starting 02/28/2023 until 02/29/2024 [facility] Work Phone: Immunizations Immunization Date Immunization Notes Care Provider Fa cility 06-24-2019 influenza virus vacc ine, unspecified formulation Tim Rai MD Work Phone: [facility] Payers Date Payer Category Payer Medicare [id number] 2016 Unknown NATALIO EDWARD DICARE SUPPLEMENT [id number] 2016-Present [phone] [address] [place] [address] Indemnity [id number] 2013 Medicare MEDICARE MEDICAR E A AND B [id number] 2013-Present [phone] [address] [address] [place] [address] Medicare [id number] 2013 Medicare [id number] Social History Date Type Detail Facility Start: 02-03-2023 Tobacco smoking stat us NHIS Ex-smoker [facility] End: 09-01-1967 History of tobacco use Current smoker [facility] End: 09-01-1967 History of tobacco use Cigarette Smoker [facility] Start: 02-03-2023 Tobacco use and exposure Smokeless t obacco non-user [facility] Start: 02-04-2023 End: 06-02-2023 Alcohol intake Current drinker of alcohol (finding) [facility] Start: 02-03-2023 [facility] Start: 1950 Sex Assigned At Not on file [facility] Start: 02-20-2023 End: 06-02-2023 History of Social function [facility] Start: 02-20-2023 End: 06-02-2023 Tobacco use panel [facility] Clinical Notes 02-04-2023 to 06-02-2023 [...] on left side. documented in this encounter [facility] 06-02-2023 History and physical note [...] Last colonoscopy 04/24/[address] Rai at [facility] with adenomatous polyp removed. Patient denies chest pain, shortness of breath or recent hospitalizations. Denies problems with sedation in the past. PAST MEDICAL HISTORY PAST MEDICAL HISTORY Diagnosis Date Essential hypertension Sciatica PAST SURGICAL HISTORY PAST SURGICAL HISTORY Procedure Laterality Date BACK SURGERY HX COLONOSCOPY SCREENING 04/01/2018 [facility] with [place] 3 year follow up CURRENT MEDICATIONS Current [...] entered by the nurse and reviewed by sd Nursing Notes: Rachel Nash RN 02/04/2023 8:18 [...] which included preparing to see the patient, [id number] patient care, completing clinical documentation, obtaining and/or [...] TIME: 7:51 AM documented in this encounter [facility] 02-28-2023 Note HNO ID: [id number] Author: Tim Rai MD Service: ? Author [...] Last colonoscopy 04/24/[address] Rai at [facility] with adenomatous polyp removed. His bowel prep [...] Date BACK SURGERY HX COLONOSCOPY SCREENING 04/01/2018 [facility] with Cecelia 3 year follow up Current [...] (203 lb), SpO2 (more content not included)... [facility] 02-28-2023 History of Present illness Narrative HISTORY [...] Last colonoscopy 04/24/[address] Rai at [facility] with adenomatous polyp removed. His bowel prep [...] Date BACK SURGERY HX COLONOSCOPY SCREENING 04/01/2018 [facility] with Cecelia 3 year follow up Current [...] Rai III, MD documented in this encounter [facility] 02-28-2023 Instructions Tim Rai MD [...] If you do not have a responsible flag car driver (family member or friend) with you [...] [facility] 08/2019 Bowel Preparation Instructions for: Golytely, [...] exam. 2 08/2019 documented in this encounter [facility] 02-20-2023 Nurse Note Patient passing [...] Kenneth Olivo RN documented in this encounter [facility] 02-20-2023 History and physical note [...] Last colonoscopy 04/24/[address] Rai at [facility] with adenomatous polyp removed. Patient denies chest pain, shortness of breath or recent hospitalizations. Denies problems with sedation in the past. PAST MEDICAL HISTORY PAST MEDICAL HISTORY Diagnosis Date Essential hypertension Sciatica PAST SURGICAL HISTORY PAST SURGICAL HISTORY Procedure Laterality Date BACK SURGERY HX COLONOSCOPY SCREENING 04/01/2018 [facility] with Cecelia 3 year follow up CURRENT [...] entered by the nurse and reviewed by sd Nursing Notes: Rachel Nash RN 02/04/2023 8:18 [...] which included preparing to see the patient, [id number] patient care, completing clinical documentation, obtaining and/or [...] Tim Rai III, MD PATIENT NAME: Amilcar Kendirck DATE: February 20, 2023 TIME: 9:45 AM documented in this encounter [facility] 02-12-2023 Miscellaneous Notes Rx sent Patient is asking prep Golytely instead of Miralax/Dulcolax Please send to [facility] in [place] Kaity Holden Call Or Contact Centre Operator 02/20/2023 colon asc documented in this encounter [facility] 02-04-2023 Note HNO ID: [id number] Author: Porsha Norman PA-C Service: ? Author Type: Physician Work Study Student Type: Progress Notes Filed: 02/10/2023 12:12 PM [...] Last colonoscopy 04/24/[address] Rai at [facility] with adenomatous polyp removed. Patient denies chest pain, shortness of breath or recent hospitalizations. Denies problems with sedation in the past. PAST MEDICAL HISTORY Diagnosis Date Essential hypertension Sciatica PAST SURGICAL HISTORY Procedure Laterality Date BACK SURGERY HX COLONOSCOPY SCREENING 04/01/2018 [facility] with Cecelia 3 year follow up Current [...] SpO2 96 %. (more content not included)... [facility] Personal history of colonic polyps- Primary [facility] Diagnosis Encounter for screening for malignant neoplasm of colon- Primary Special screening for malignant neoplasms, colon Personal history of colonic polyps [facility] [place] [facility] Diagnosis Personal history of colonic polyps- Primary documented in this encounter [facility] for referral (narrative)* Outpatient Procedure (Routine) - Authorized Specialty Diagnoses / Procedures Referred By Akosua romano Referred To Contact [facility] Diagnoses Personal history of colonic polyps Procedures COLONOSCOPY DIAGNOSTIC COLONOSCOPY DIAGNOSTIC COLONOSCOPY FLX DX W/COLLJ SPEC WHEN Tim Lemus MD [address] [place] [address] [address] Referral ID Status Reason Start Date Expiration Date Visits Requested Visits Authorized [id number] Authorized Auto-Generat ed Referral 02/28/2023 02/29/2024 1 1 [facility] for referral (narrative)* Outpatient Procedure (Routine) - Closed Specialty Diagnoses / Procedures Referred By Akosua romano Referred To Contact [facility] Diagnoses Personal history of colonic polyps Procedures COLONOSCOPY SCREENING COLONOSCOPY FLX DX W/COLLJ SPEC WHEN Porsha Mina PA-C [address] [place] [address] [address] Referral ID Status Reason Start Date Expiration Date V isits Requested Visits Authorized [id number] Closed Auto-Generate d Referral 02/04/2023 02/05/2024 1 1 [facility] for referral (narrative)* Outpatient Procedure (Routine) - Closed Specialty Diagnoses / Procedures [facility] To Contact [facility] Diagnoses Personal history of colonic polyps Procedures COLONOSCOPY DIAGNOSTIC COLONOSCOPY DIAGNOSTIC COLONOSCOPY FLX DX W/COLLJ SPEC WHEN Tim Lemus MD [address] [place] [address] [address] Referral ID Status Reason Start Date Expiration Date V isits Requested Visits Authorized [id number] Closed Auto-Generate d Referral 02/28/2023 02/29/2024 1 1 [facility] for visit Narrative* Outpatient Procedure (Routine) - Closed Specialty Diagnoses / Procedures Referred By Contac t Referred To Contact [facility] Diagnoses Personal history of colonic polyps Procedures COLONOSCOPY SCREENING COLONOSCOPY FLX DX W/COLLJ SPEC WHEN PFRMD Porsha Norman PA-C [address] [place] [address] [address] Referral ID Status Reason Start Date Expiration Date V isits Requested Visits Authorized [id number] Closed Auto-Generate d Referral 02/04/2023 02/05/2024 1 1 [facility] for visit Narrative* Outpatient Procedure (Routine) - Closed Specialty Diagnoses / Procedures Referred By Contac t Referred To Contact [facility] Diagnoses Personal history of colonic polyps Procedures COLONOSCOPY DIAGNOSTIC COLONOSCOPY DIAGNOSTIC COLONOSCOPY FLX DX W/COLLJ SPEC WHEN Tim Lemus MD [address] [place] [address] [address] Referral ID Status Reason Start Date Expiration Date V isits Requested Visits Authorized [id number] Closed Auto-Generate d Referral 02/28/2023 02/29/2024 1 1 [facility] Reason for Referral Specialty Diagnoses / Procedures Referred By Contac t Referred To Contact Porsha Norman PA-C [address] [place] [address] Referral ID Status Reason Start Date Expiration Date V isits Requested Visits Authorized [id number] Pending Review 1 1 Specialty Diagnoses / Procedures Referred By Contac t Referred To Contact [facility] Diagnoses Personal history of colonic polyps Procedures COLONOSCOPY SCREENING COLONOSCOPY FLX DX W/COLLJ SPEC WHEN PFRMD Porsha Norman PA-C [address] [place] [address] [facility] [place] [address] [place] [address] Referral ID Status Reason Start Date Expiration Date V isits Requested Visits Authorized [id number] Closed Auto-Generate d Referral 02/04/2023 02/05/2024 1 [...] or prosecute any alcohol or drug abuse patient.[facility] the event this information is protected by the Federal Confidentiality of Alcohol and Drug Abuse Patient Records regulations: The Federal rules restrict any use of the information to criminally investigate or prosecute any alcohol or drug abuse patient.[facility] the event this information is protected by the Federal Confidentiality of Alcohol and Drug Abuse Patient Records regulations: The Federal rules restrict any use of the information to criminally investigate or prosecute any alcohol or drug abuse patient.[facility] the event this information is protected by the Federal Confidentiality of Alcohol and Drug Abuse Patient Records regulations: The Federal rules restrict any use of the information to criminally investigate or prosecute any alcohol or drug abuse patient.[facility] the event this information is protected by the Federal Confidentiality of Alcohol and Drug Abuse Patient Records regulations: The Federal rules restrict any use of the information to criminally investigate or prosecute any alcohol or drug abuse patient.[facility] Care Teams (unrecognized sec tion and content) Ready [employer] Department Manager Relationship Specialty Start Date End Date Maryellen Chaidez DO [address] [place] [address] (Fax) PCP - General Family Medicine 02/03/23 Ready To Wear Department Manager Relationship Specialty Start Date End Date Maryellen Chaidez DO [address] [place] [address] (Fax) PCP - General Family Medicine 02/03/23 Ready [employer] Department Manager Relationship Specialty Start Date End Date Maryellen Chaidez DO [address] [place] [address] (Fax) PCP - General Family Medicine 02/03/23 Ready To Wear Department Manager Relationship Specialty Start Date End Date Maryellen Chaidez DO [address] [place] [address] (Fax) PCP - General Family Medicine 02/03/23 [...] BE BASED ON THE PRIMARY CLINICAL RECORDS. [employer] provides no warranty or guarantee of the accuracy or completeness of information in this document.
[2023-09-03 12:29] LABS: Absolute Lymphocyte Count 1.93 X10^3/uL (0.83-4.51); Absolute Neutrophil Count 7.6 X10^3/uL (2.0-7.7); Basophil# 0.05 X10^3/uL; Basophil% 0.5 % (0-1); Eosinophil# 0.15 X10^3/uL; Eosinophils% 1.4 % (0-5); Hematocrit 47.7 % (40-54); Hemoglobin 15.4 g/dL (13.0-16.5); Lymphocyte # 1.93 X10^3/ul (0.83-4.51); Lymphocyte % 17.9 % (19-41); Mean Corp Hgb Conc 32.3 g/dL (32-36); Mean Corpuscular Hgb 29.9 pg (27.0-32.0); Mean Corpuscular Volume 92.6 fL (80-94); Mean Platelet Vol. 9.5 fl (6.2-12.0); Monocyte# 0.87 X10^3/uL; Monocyte% 8.1 % (0-10); NRBC Flagged by Analyzer 0 % (0-5); Neutrophil # 7.63 X10^3/uL (2.7-7.7); Neutrophil % 70.9 % (47-70); Platelet Count 339 K/mm3 (150-450); RBC Distribution Width CV 13.2 % (11.6-14.6); RBC Distribution Width SD 44.5 fl (35.1-43.9); Red Blood Count 5.15 M/mm3 (4.6-6.2); White Blood Count 10.8 K/mm3 (4.4-11.0)
== END | disposition home or self-care (01) ==
LOC: BIMLAB 10:44
PROVIDERS: PCP Family Medicine; Referring Provider Family Medicine; Visit Provider Family Medicine
DX: D72.9 Disorder of white blood cells, unspecified (principal)
CPT/HCPCS: 36415; 85025

== ENCOUNTER → 2023-12-08 | Outpatient (CLI) | payer MEDICARE, BC, SELFPAY ==
--- NOTE | 2023-12-08 09:13 | EKG12_ITS ---
Test Reason : PREOP Blood Pressure : / mmHG Vent. Rate : 063 BPM Atrial Rate : 063 BPM P-R Int : 178 ms QRS Dur : 086 ms QT Int : 426 ms P-R-T Axes : 025 008 046 degrees QTc Int : 435 ms Normal sinus rhythm Nonspecific T wave abnormality Abnormal ECG Confirmed by Magdaleno Howard ([id number]), communications editor PORSHA UREÑA ([id number]) on 12/08/2023 11:06:04 AM Referred By: Satya Michael Confirmed By:Magdaleno Howard
--- NOTE | 2023-12-08 09:15 | EKG12_ITS ---
Test Reason : PREOP Blood Pressure : / mmHG Vent. Rate : 062 BPM Atrial Rate : 062 BPM P-R Int : 176 ms QRS Dur : 084 ms QT Int : 422 ms P-R-T Axes : 002 006 047 degrees QTc Int : 428 ms Normal sinus rhythm Nonspecific T wave abnormality Abnormal ECG No previous ECGs available Confirmed by Magdaleno Howard ([id number]), video editor PORSHA UREÑA ([id number]) on 12/10/2023 11:22:29 AM Referred By: Satya Michael Confirmed By:Magdaleno Howard
[2023-12-08 09:43] LABS: Absolute Lymphocyte Count 1.65 X10^3/uL (0.83-4.51); Basophil# 0.05 X10^3/uL; Basophil% 0.6 % (0-1); Eosinophil# 0.22 X10^3/uL; Eosinophils% 2.5 % (0-5); Hematocrit 47.9 % (40-54); Hemoglobin 15.9 g/dL (13.0-16.5); Lymphocyte # 1.65 X10^3/ul (0.83-4.51); Lymphocyte % 19.1 % (19-41); Mean Corp Hgb Conc 33.2 g/dL (32-36); Mean Corpuscular Hgb 30.1 pg (27.0-32.0); Mean Corpuscular Volume 90.7 fL (80-94); Mean Platelet Vol. 9.1 fl (6.2-12.0); Monocyte# 0.68 X10^3/uL; Monocyte% 7.9 % (0-10); NRBC Flagged by Analyzer 0 % (0-5); Neutrophil # 5.98 X10^3/uL (2.7-7.7); Neutrophil % 69.3 % (47-70); Platelet Count 288 K/mm3 (150-450); RBC Distribution Width CV 14.1 % (11.6-14.6); RBC Distribution Width SD 46.8 fl (35.1-43.9); Red Blood Count 5.28 M/mm3 (4.6-6.2); White Blood Count 8.6 K/mm3 (4.4-11.0)
[2023-12-08 10:13] LABS: Albumin, Serum 3.6 g/dL (3.2-5.0); Anion Gap 7 (5-15); BUN 17 mg/dL (7-18); BUN/Creat Ratio 18.7 RATIO (10-20); Calcium,Total 8.7 mg/dL (8.5-10.1); Chloride 107 mmol/L (98-107); Creatinine, Serum 0.91 mg/dL (0.70-1.30); EST Glomerular Filtration Rate 87 mL/min (>60); Est Glom Filt Rate - Afr Amer 105 mL/min (>60); Glucose 94 mg/dL (74-106); Potassium 4.4 mmol/L (3.5-5.1); Sodium Level 140 mmol/L (136-145)
== END | disposition home or self-care (01) ==
LOC: PSN 09:10
PROVIDERS: PCP Family Medicine; Referring Provider Specialist; Visit Provider Specialist
DX: Z01.818 Encounter for other preprocedural examination (principal); M16.11 Unilateral primary osteoarthritis, right hip
CPT/HCPCS: 36415; 80048; 82040; 85025; 93005

== ENCOUNTER → 2024-01-02 | Outpatient (CLI) | payer MEDICARE, BC, SELFPAY ==
--- NOTE | 2024-01-01 07:15 | HIP_PTH ---
PATIENT: MIRA FELICIANO LOC: [facility]#:[id number] AGE/SX: 73/M ROOM: RE01/02/[address]: Dr. Satya Michael MD : 1950 BED: DIS: 01/02/2024 SPEC #: [id number] RECD: 01/02/24 07:50 STATUS: ALMA RELinnette #: [id number] YG: 01/01/24 07:[address]: Satya Michael DEPT: SURGICAL PATHOLOGY RECD BY: Nicholas Fiore ENTERED: 01/05/24 07:52 SP TYPE: TOTAL HIP OTHR DR: Dr. Silas Chaidez, [facility] Tissues: Hip, NOS Procedures: Decalcification bone/plaque Surgery Specimen Level IV HEADER OPERATION: Right direct anterior total hip arthroplasty PRE-OP DIAGNOSIS: Severe hip osteoarthritis TISSUE SUBMITTED: Right hip MICROSCOPIC DIAGNOSIS Right hip bone and soft tissue, total hip replacement/resection: Femoral head with degenerative osteoarthritic changes. FRANCO: 01/08/24 MICROSCOPIC DESCRIPTION Slides are reviewed. GROSS DESCRIPTION Received is one container labeled with the patient's name and designated bone and soft tissue right hip. The specimen consists of a monroy femoral head. The femoral head measures 5.5 x 5.5 x 5.0 cm. Also present in the container is a detached piece of bone consistent with femoral neck measuring 5.0 x 3.0 x 1.0cm. The articular surface displays prominent osteophyte formation, eburnation and bone erosion. No soft tissue is identified. Reservations And Ticketing Agent sections are submitted in one cassette after decalcification. /FRANCO/ 01/05/24 TC:5 CPT: 21113, 46263
== END | disposition home or self-care (01) ==
LOC: LABSPEC 15:40
PROVIDERS: PCP Family Medicine; Referring Provider Specialist; Visit Provider Specialist
DX: M16.11 Unilateral primary osteoarthritis, right hip (principal)
CPT/HCPCS: 88305; 88311

== ENCOUNTER → 2025-06-14 | Outpatient (CLI) | payer MEDICARE, BC, SELFPAY ==
[2025-06-14 18:42] LABS: Hematocrit 41.2 % (40-54); Hemoglobin 13.8 g/dL (13.0-16.5); Mean Corp Hgb Conc 33.5 g/dL (32-36); Mean Corpuscular Volume 83.9 fL (80-94); Mean Platelet Vol. 10.0 fl (6.2-12.0); Platelet Count 363 K/mm3 (150-450); RBC Distribution Width CV 13.8 % (11.6-14.6); RBC Distribution Width SD 42.3 fl (35.1-43.9); Red Blood Count 4.91 M/mm3 (4.6-6.2); White Blood Count 9.7 K/mm3 (4.4-11.0)
[2025-06-14 19:08] LABS: Anion Gap 12 (5-15); BUN 19 mg/dL (4-19); BUN/Creat Ratio 26.5 RATIO (10-20); Calcium,Total 9.0 mg/dL (7.6-11.0); Carbon Dioxide 20.2 mmol/L (21.0-32.0); Chloride 104 mmol/L (98-108); Glucose 96 mg/dL (70-99); Iron 25 ug/dL (65-175); Iron Binding Capacity,Total 349 ug/dL (250-450); Iron Binding Capacity,Unsat 324 ug/dL (228-428); Magnesium 2.2 mg/dL (1.5-2.2); Potassium 3.9 mmol/L (3.3-5.1)
== END | disposition home or self-care (01) ==
LOC: MTLAB 15:52
PROVIDERS: PCP Family Medicine; Referring Provider Family Medicine; Visit Provider Family Medicine
DX: G25.81 Restless legs syndrome (principal)
CPT/HCPCS: 36415; 80048; 83540; 83550; 83735; 85027

== ENCOUNTER → 2025-08-19 | Outpatient (CLI) | payer MEDICARE, BC, SELFPAY ==
--- OUTSIDE RECORDS SUMMARY | 2025-08-19 13:10 | XMS RPT_ITS | CCD ---
Author Organization [facility] Care Team Providers Care Service Bar Cashier Name Role Phone Dr. Silas Chaidez Primary Care Provider [phone] Dr. Silas Chaidez Attending Provider [phone] Silas Chaidez Referring Provider Silas Chaidez DO Primary Care Provider Dr. Silas Chaidez Primary Care Provider [phone] Dr. Silas Chaidez Referring Provider River SAENZ, [place] Chucky Attending Provider [phone] Dr. Silas Chaidez Attending Provider Dr. Silas Chaidez Primary Care Provider [phone] Dr. Silas Chaidez Attending Provider Dr. Silas Chaidez Referring Provider [phone] Magdaleno Howard Attending Provider Dr. Satya Michael Referring Provider Dr. Silas Chaidez Primary Care Provider [phone] Dr. Silas Chaidez Attending Provider Dr. Silas Chaidez Referring Provider Silas Chaidez DO Primary Care Provider Dr. Silas Chaidez DO Primary Care Physician Dr. Slias Chaidez DO Attending Physician [phone] Dr. Silas Chaidez DO Referring Provider [phone] Brown, Silas R Attending Unavailable Brown, Silas R Primary Care Unavailable Brown, Sials R Referring Unavailable Brown, Silas R Attending Unavailable Brown, Silas R Primary Care Unavailable Brown, Silas R Referring Unavailable Brown, Silas R Attending Unavailable Brown, Silas R Primary Care Unavailable Brown, Silas R Referring Unavailable Allergies Allergy Classification Reported Allergen(s) Allergy Type Date of Onset Reaction(s) Facility (12 sources) hydroCHLOROthiazide Drug Allergy 2 Swelling [facility] (12 sources) valsartan Drug Allergy 2 Swelling [facility] (1 source) hydroCHLOROthiazide Drug Allergy 5 [facility] (1 source) valsartan Drug Allergy 5 [facility] Medications Current Medications Medication Drug Class(es) Dates Sig (Normalized) Sig (Original) 8 hr acetaminophen 650 mg extended release oral tablet (2 sources) Start: 12-16-2023 take 1 tablet by mouth every twelve hours amLODIPine 10 mg oral tablet (20 sources) Dihydropyridine Calcium Channel Cristofer Start: 01-27-2018 End: 04-07-2025 take 1 tablet by mouth once daily Comment on above: Take 10 mg by mouth once daily. Ascorbic Acid (3 sources) Vitamin C ascorbic acid (VITAMIN C ORAL) Take by mouth once daily. Active ascorbic acid (V ITAMIN C ORAL) Take by mouth once daily. 0 Active Comment on above: Take by mouth once d aily. ascorbic acid 200 mg / beta carotene 1000 unt / cuprous oxide 2 mg / dl-alpha tocopheryl acetate 60 unt / lutein 2 mg / sodium selenate 0.055 mg / zinc oxide 40 mg oral tablet (1 source) Vitamin C Start: 8 take 1 tablet by mouth once daily benazepril hydrochloride 20 mg oral tablet (20 sources) Angiotensin Converting Enzyme Inhibitor Start: 8 End: 5 take 1 tablet by mouth once daily Comment on above: Take 20 mg by mouth once daily. handicap placard (5 sources) Start: 3 handicap placard Active 0 .Route .MEDSUPPLY 1 0 August 20, 2023 1:00am Pain of right lower extremity Pain in right leg Right hip pain, unable to walk long distances Start: 08-20-[address] Active 0 .Route .MEDSUPPLY August 20, 2023 1:00am Right hip pain, unable to walk long distances Start: 08-20-[address] Active 0 .Route .MEDSUPPLY August 20, 2023 12:00am Right hip pain, unable to walk long distances hydrocortisone 25 mg/ml topical cream (2 sources) Corticosteroid Start: 12-26-2023 End: 09-29-2024 apply 15 g rectal route twice daily hydrocortisone (ANUSOL-HC) 2.5 % rectal cream by RECTAL route two times a day. 15 g 2 09/29/2024 Active MULTIVITAMIN ORAL (6 sources) MULTIVITAMIN ORA L Take by mouth. Active MULTIVITAMIN ORA L Take by mouth. 0 Active Comment on above: Take by mouth. Multivitamin preparation (5 sources) Start: 02-10-2018 take 1 tablet by mouth once daily in the morning Multivitamin Active 1 TABLET PO EVERY MORNING February 10, 2018 12:00am Start: 02-10-2018 take 1 tablet by riana th once daily in the morning Multivitamin Active 1 TABLET PO EVERY MORNING February 09, 2018 11:00pm Multivitamin tablet (1 source) Start: 02-10-2018 polyethylene glycol 3350 595280 mg / potassium chloride 2970 mg / sodium bicarbonate 6740 mg / sodium chloride 5860 mg / sodium sulfate 15460 mg powder for oral solution (3 sources) Osmotic Laxative Start: 02-28-2023 End: 02-28-2023 peg 3350-Electrolytes (GOLYTELY) 236-22.74-6.74 -5.86 gram suspension Indications: Personal history of colonic polyps Take 4,000 mL by mouth one time only for 1 dose. Refer to printed prep instructions from your provider. 4000 mL 0 02/28/2023 02/28/2023 Active Start: 02-12-2023 End: 02-12-2023 peg 3350-Electrolytes (GOLYT FREEDOM) 236-22.74-6.74 -5.86 gram suspension Take 4,000 mL by mouth one time only for 1 dose. 1 Each 0 02/12/2023 02/12/2023 Comment on above: Take 4,000 mL by riana th one time only for 1 dose. Take 4,000 mL by riana th one time only for 1 dose. Refer to printed prep instructions from your provider. Vit A,C And U-Yvcuny-Qvycbjry (5 sources) Start: 03-30-2018 Vit A,C And E-Balbmt-Jvwvomzt Active 1 EACH PO DAILY March 30, 2018 12:00am Start: 03-30-2018 Vit A,C And E- Lutein-Minerals Active 1 EACH PO DAILY March 29, 2018 11:00pm VITAMIN A ORAL (6 sources) take 1 tablet by mouth once bari y VITAMIN A ORAL Take 1 tablet by mouth once daily. Active take 1 tablet by mouth once bari y VITAMIN A ORAL Take 1 tablet by mouth once daily. 0 Active Comment on above: Take 1 tablet by riana th once daily. Vitamin E (6 sources) take 1 tablet by mouth once daily vitamin E (AQUAVIT-E ORAL) Take 1 tablet by mouth once daily. Active take 1 tablet by mouth once bari y vitamin E (AQUAVIT-E ORAL) Take 1 tablet by mouth once daily. 0 Active Comment on above: Take 1 tablet by riana th once daily. Completed/Discontinued Medications Medication Drug Class(es) Dates Sig (Normalized) Sig (Original) ibuprofen 600 mg oral tablet (12 sources) Nonsteroidal Anti-inflammatory Drug Start: 03-24-2018 End: 12-16-2023 take 1 tablet by mouth three times daily as needed for pain Ibuprofen 600 mg tablet Discontinued 600 mg PO THREE TIMES A DAY as needed for pain 30 March 24, 2018 12:00am December 16, 2023 10:19am take 1 tablet by riana th every six hours as needed ibuprofen (MOTRIN) 600 mg tablet Take 60 0 mg by mouth every 6 hours as needed. Active Comment on above: Take 600 mg by mouth every 6 hours as needed. 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) Neutrophilia; Translations: [Disorder of white blood cells, unspecified] 08-21-2023 Chronic Essential hypertension (17 sources) Hypertensive disorder; Translations: [Essential (primary) hypertension] Chronic Genitourinary symptoms and ill-defined conditions (7 sources) Nocturia; Translations: [Nocturia] Episodic Osteoarthritis (3 sources) Osteoarthritis of right hip joint; Translations: [Unilateral primary osteoarthritis, right hip] 12-16-2023 Chronic Other connective tissue disease (5 sources) Pain in right lower limb; Translations: [Pain in right leg] 08-05-2023 Episodic Other connective tissue disease (3 sources) Pain in right leg; Translations: [Pain in limb] 08-20-2023 Episodic Other hereditary and degenerative nervous system conditions (2 sources) Restless legs; Translations: [Restless legs syndrome] 06-14-2025 Chronic Other hereditary and degenerative nervous system conditions (1 source) Restless legs syndrome; Translations: [Restless legs syndrome] Onset: 06-29-2025 Chronic Other male genital disorders (6 sources) Male erectile dysfunction, unspecified; Translations: [Impotence] 04-01-2018 Chronic Other screening for suspected conditions (not mental disorders or infectious disease) (2 sources) Patient encounter status; Translations: [Encounter for screening for malignant neoplasm of colon] 02-19-2023 Episodic Residual codes; unclassified (6 sources) H/O Spinal surgery; Translations: [Other specified postprocedural states] 04-24-2018 Episodic Residual codes; unclassified (6 sources) Other specified postprocedural states; Translations: [Other postprocedural status] Onset: 09-01-2017 08-20-2023 Episodic Residual codes; unclassified (2 sources) Influenza vaccination declined; Translations: [Immunization not carried out because of patient refusal] 06-14-2025 Episodic Spondylosis; intervertebral disc disorders; other back problems (6 sources) Sciatica; Translations: [Sciatica, unspecified side] 04-01-2018 Episodic Sprains and strains (6 sources) Strain of muscle of trunk; Translations: [Strain of muscle, fascia and tendon of abdomen, initial encounter] 07-18-2023 Episodic Past or Other Problems Problem Classification Problem Date Documented Date Episodic/Chronic Other and unspecified benign neoplasm (9 sources) History of polyp of colon; Translations: [Personal history of colonic polyps] Onset: 02-20-2023 Episodic Residual codes; unclassified (6 sources) History of colonoscopy; Translations: [Other specified postprocedural states] Onset: 09-01-2017 04-24-2018 Episodic Results Test Name Value Interpretation Reference Range Facility Anion gap in Serum or Plasma Ordered By: Silas Chaidez on 06-14-2025 Anion gap [Moles/Vol] 12 mmol/L 01-13 [facility] BUN/creatinine ratioOrdered By: Silas Chaidez on 06-14-2025 Urea nitrogen/Creatinine [Mass ratio] 26.5 mg/mg High 06-20 [facility] Basic Metabolic Profile (BMP )on 06-14-2025 BUN/CRE 26.5 RATIO High 06-20 [facility] Comment on above: Performed By: #### L 500.2500, L100.0500, L503.6030, L501.5200 #### [facility] [address] [place], [address] Calcium [Mass/Vol] 9.0 mg/dL Normal 7.6-11.0 [facility] Comment on above: Performed By: #### L 500.2500, L100.0500, L503.6030, L501.5200 #### [facility] [address] [place], [address] Chloride [Moles/Vol] 104 mmol/L Normal 98-108 [facility] Comment on above: Performed By: #### L 500.2500, L100.0500, L503.6030, L501.5200 #### [facility] [address] [place], [address] CO2 [Moles/Vol] 20.2 mmol/L Low 21.0-32.0 [facility] Comment on above: Performed By: #### L 500.2500, L100.0500, L503.6030, L501.5200 #### [facility] [address] [place], [address] Creatinine [Mass/Vol] 0.70 mg/dL Normal 0.70-1.20 [facility] Comment on above: Performed By: #### L 500.2500, L100.0500, L503.6030, L501.5200 #### [facility] [address] [place], [address] GAP 12 Normal 5-15 [facility] Comment on above: Performed By: #### L 500.2500, L100.0500, L503.6030, L501.5200 #### [facility] [address] [place], [address] GFR/1.73 sq M.predicted among non-blacks MDRD (S/P/Bld) [Vol rate/Area] 95 mL/min/{1.73_m2} Normal >60 [facility] Comment on above: Result Comment: mL/m in/1.73m2 CKD-EPI Creatinine Equation (2020) Performed By: #### L 500.2500, L100.0500, L503.6030, L501.5200 #### [facility] [address] [place], [address] Glucose [Mass/Vol] 96 mg/dL Normal 70-99 [facility] Comment on above: Performed By: #### L 500.2500, L100.0500, L503.6030, L501.5200 #### [facility] [address] [place], [address] Potassium [Moles/Vol] 3.9 mmol/L Normal 3.3-5.1 [facility] Comment on above: Performed By: #### L 500.2500, L100.0500, L503.6030, L501.5200 #### [facility] [address] [place], [address] Sodium [Moles/Vol] 136 mmol/L Normal 133-145 [facility] Comment on above: Performed By: #### L 500.2500, L100.0500, L503.6030, L501.5200 #### [facility] [address] [place], [address] Urea nitrogen [Mass/Vol] 19 mg/dL Normal 4-19 [facility] Comment on above: Performed By: #### L 500.2500, L100.0500, L503.6030, L501.5200 #### [facility] [address] [place], [address] CBC-Complete Blood Cnt No Di ffon 06-14-2025 Erythrocyte distribution width (RBC) [Ratio] 13.8 % Normal 11.6-14.6 [facility] Comment on above: Performed By: #### L 500.2500, L100.0500, L503.6030, L501.5200 #### [facility] [address] [place], [address] Hematocrit (Bld) [Volume fraction] 41.2 % Normal 40-54 [facility] Comment on above: Performed By: #### L 500.2500, L100.0500, L503.6030, L501.5200 #### [facility] [address] [place], [address] Hemoglobin (Bld) [Mass/Vol] 13.8 g/dL Normal 13.0-16.5 [facility] Comment on above: Performed By: #### L 500.2500, L100.0500, L503.6030, L501.5200 #### [facility] [address] [place], [address] MCH (RBC) [Entitic mass] 28.1 pg Normal 27.0-32.0 [facility] Comment on above: Performed By: #### L 500.2500, L100.0500, L503.6030, L501.5200 #### [facility] [address] [place], [address] MCHC (RBC) [Mass/Vol] 33.5 g/dL Normal 32-36 [facility] Comment on above: Performed By: #### L 500.2500, L100.0500, L503.6030, L501.5200 #### [facility] [address] [place], [address] MCV (RBC) [Entitic vol] 83.9 fL Normal 80-94 [facility] Comment on above: Performed By: #### L 500.2500, L100.0500, L503.6030, L501.5200 #### [facility] [address] [place], [address] Platelet mean volume (Bld) [Entitic vol] 10.0 fL Normal 6.2-12.0 [facility] Comment on above: Performed By: #### L 500.2500, L100.0500, L503.6030, L501.5200 #### [facility] [address] [place], [address] Platelets (Bld) [#/Vol] 363 10*3/uL Normal 150-450 [facility] Comment on above: Performed By: #### L 500.2500, L100.0500, L503.6030, L501.5200 #### [facility] [address] [place], [address] RBC (Bld) [#/Vol] 4.91 10*6/uL Normal 4.6-6.2 [facility] Comment on above: Performed By: #### L 500.2500, L100.0500, L503.6030, L501.5200 #### [facility] [address] [place], [address] RDW SD 42.3 fl Normal 35.1-43.9 [facility] Comment on above: Performed By: #### L 500.2500, L100.0500, L503.6030, L501.5200 #### [facility] [address] [place], [address] WBC (Bld) [#/Vol] 9.7 10*3/uL Normal 4.4-11.0 [facility] Comment on above: Performed By: #### L 500.2500, L100.0500, L503.6030, L501.5200 #### [facility] [address] [place], [address] Carbon dioxide, total [Moles /volume] in Central venous bloodOrdered By: Silas Chaidez on 06-14-2025 CO2 [Moles/Vol] 20.2 mmol/L Low 21.0-32.0 [facility] Chloride assayOrdered By: Do cat Chaidez on 06-14-2025 Chloride [Moles/Vol] 104 mmol/L 98-108 [facility] Erythrocyte distribution wid th ratioOrdered By: Silas Chaidez on 06-14-2025 Erythrocyte distribution width (RBC) [Ratio] 13.8 % 11.6-14.6 [facility] Erythrocyte distribution wid th standard deviationOrdered By: Silas Chaidez on 06-14-2025 Erythrocyte distribution width (RBC) [Ratio] 42.3 fl 35.1-43.9 [facility] Glomerular filtration rate ( GFR) estimation/1.73 sq m using serum, plasma, or whole bOrdered By: Silas Chaidez on 06-14-2025 GFR/1.73 sq M.predicted among non-blacks MDRD (S/P/Bld) [Vol rate/Area] 95 mL/min/{1.73_m2} >60 [facility] Comment on above: mL/min/1.73m2 CKD-EP I Creatinine Equation (2020) Hematocrit Auto (Bld) [Volum e fraction]Ordered By: Silas Chaidez on 06-14-2025 Hematocrit (Bld) [Volume fraction] 41.2 % 40-54 [facility] Hemoglobin measurementOrdere d By: Silas Chaidez on 06-14-2025 Hemoglobin (Bld) [Mass/Vol] 13.8 g/dL 13.0-16.5 [facility] Internal Medicine Office Vis itoamina 06-14-2025 Internal Medicine Office Visit [facility] Internal Medicine [address] [place], [place] [address] OFFICE VISIT Date of Service: 06/14/25 MR#: [id number] Acct: [id number] Name: DOREEN FELICIANO Rep #: [id number] : [id number] Provider: Dr. Silas Benitez Br own, DO Age/Sex: 74/M Location: [facility] [place].[facility] Status: Signed Intake Vital Signs 09/15/24 12:42 06/14/25 15:11 Height 5 ft 8 in 5 ft 8 in Weight: 208 lb 202 lb BMI 31.6 30.7 BP 130/80 H 124/84 H Blood Pressure Location Lt brachial Lt brachial Position Sitting Sitting Respiration 16 16 Pulse 78 72 Pulse Source Monitor Monitor Temp 97.6 F L 97.3 F L Temp Source Temporal Temporal Pulse Oximetry (%) 98 97 Oxygen Delivery Method room air room air Intake Visit Reasons: Multiple concerns Chief Complaint: med fu Vascular Surgeon Required: No Is patient in pain?: No Allergies hydrochlorothiazide (From Diovan HCT) Allergy (Unknown, Verified 06/14/25 14:58) Swelling valsartan (From Diovan HCT) Allergy (Unknown, Verified 06/14/25 14:58) Swelling Medications ???Medication ???Instructions ???Recorded ???Confirmed ???Type multivitamin 1 tab PO QAM 02/10/18 06/14/25 His tory vit A 300 mcg-C 200 mg-E 27 1 ea PO DAILY 03/30/18 06/14/25 Hi story mg-lutein 2 mg and minerals tablet handicap placard #1 ea 08/20/23 06/14/25 Rx acetaminophen 650 mg 650 mg PO Q12H 12/16/23 06/14/25 H istory tablet,extended release (Tylenol 8 Hour) amlodipine 10 mg tablet 10 mg PO QDAY #90 tabs 04/07/25 Rx benazepril 20 mg tablet 20 mg PO QDAY #90 tabs 04/07/25 Rx Have you fallen in the past year?: No Nurse's Note: Pt states when he gpoes to lay down at night his legs ache bad. Pt states that he has had bilateral numbness in the heels. He states that he took supplements for this. [address] Hdz a chiropractor he sees who told him to try formula 303 ( see attached link for ingredients) and took 1 of his wifes supplements synocell. (see below link) However they made him have rectal bleeding which was w/o bowel movement and bright red. Pt states once he stopped taking these the bleeding stopped. https://www.Answer.To/shop/p/form [email or web address] https://investUP.21viaNet m/pages/ingredients [facility] Medical History (Updated 06/14/25 @ 15:[address] Silas Chaidez, DO) Impotence Hypertension Sciatica Surgical History History of colonoscopy History of back surgery Family History Mother CVA (cerebral vascular accident) Hypertension Father Hypertension Social History Smoking Status: Former smoker how long ago did patient quit smokin alcohol intake: current alcohol intake frequency: holidays/special occasions only Alcohol type: beer and wine substance use type: does not use what type of physical activity do you participate in: walking frequency: 1-2 times per week HPI HPI Chief Complaint: med fu Details: MIRA FELICIANO, is a 74 M who presents to the office today for leg achiness. At nighttime he has achiness in his lower legs both right and left side and normally gets better if he moves walks around or sometimes gets up in a chair. He has no leg pain when he walks, but the legs feel kind of numb and very uncomfortable until he moves them. He took a nutritional supplement which did not seem to help the leg pain but did cause some rectal bleeding. He has had a colonoscopy about 5 years ago and was told another one was not needed. ROS Const Constitutional: No body ache, chills, excessive sweating, fatigue, fever(s), frequent falls, headache(s), snoring, weakness, sleep problems or change in appetite Eyes Eyes: No blurry vision, change in vision, eye pain or Light sensitivity ENT ENT: No abnormal hearing, ear or mastoid pain, tinnitus, nasal congestion, headache(s), neck pain or sore throat Resp Respiratory: No cough, shortness of breath, snoring or wheezing Cardio Cardiology: No chest pain at rest, chest pain with exertion, excessive sweating, shortness of breath, dyspnea on exertion, lightheadedness, orthopnea or palpitations Gastro GI: No abdominal pain, change in bowel habits, constipation, cramping, diarrhea, nausea/dyspepsia or vomiting Genitourinary Male: No burning urination, painful urination, urinary incontinence or urinary frequency Musc Musculoskeletal: No abnormal gait, joint pain, back pain, limited range of motion, neck pain or numbness Skin Skin: No dry skin, redness, lesions, itchy eyes, rash or wounds Neuro Neurology: No abnormal gait, abnormal hearing, weakness, frequent falls, headache(s), memory loss or num (more content not included)... Normal [facility] Iron measurement (mass/mass) Ordered By: Silas Chaidez on 06-14-2025 Iron (Unsp spec) [Mass/Mass] 25 ug/dL Low 65-175 [facility] Iron+Iron Binding Capacityon 06-14-2025 Iron [Mass/Vol] 25 ug/dL Low 65-175 [facility] Comment on above: Performed By: #### L 500.2500, L100.0500, L503.6030, L501.5200 #### [facility] [address] [place], [address] IRON SATURATION 7.1 Low 9-55 [facility] Comment on above: Performed By: #### L 500.2500, L100.0500, L503.6030, L501.5200 #### [facility] [address] [place], [address] TIBC 349 ug/dL Normal 250-450 [facility] Comment on above: Performed By: #### L 500.2500, L100.0500, L503.6030, L501.5200 #### [facility] [address] [place], [address] UIBC 324 ug/dL Normal 228-428 [facility] Comment on above: Performed By: #### L 500.2500, L100.0500, L503.6030, L501.5200 #### [facility] [address] [place], [address] MCV (mean corpuscular volume ) determinationOrdered By: Silas Chaidez on 06-14-2025 MCV (RBC) [Entitic vol] 83.9 fL 80-94 [facility] Magnesiumon 06-14-2025 Magnesium [Mass/Vol] 2.2 mg/dL Normal 1.5-2.2 [facility] Comment on above: Performed By: #### L 500.2500, L100.0500, L503.6030, L501.5200 #### [facility] [address] [place], [place], [address] Magnesium measurement (mass/ volume)Ordered By: Silas Chaidez on 06-14-2025 Magnesium (Unsp spec) [Mass/Vol] 2.2 mg/dL 1.5-2.2 [facility] Mean corpuscular hemoglobin (MCH) determinationOrdered By: Silas Chaidez on 06-14-2025 MCH (RBC) [Entitic mass] 28.1 pg 27.0-32.0 [facility] Mean corpuscular hemoglobin concentration (MCHC) determinationOrdered By: Silas Chaidez on 06-14-2025 MCHC (RBC) [Mass/Vol] 33.5 g/dL 32-36 [facility] Mean platelet volume determi nationOrdered By: Silas Chaidez on 06-14-2025 Platelet mean volume (Bld) [Entitic vol] 10.0 fL 6.2-12.0 [facility] No Panel InformationOrdered By: Silas Chaidez on 06-14-2025 Unsaturated Iron Binding Capacity 324 ug/dL 228-428 [facility] Platelet countOrdered By: Do cat Chaidez on 06-14-2025 Platelets (Bld) [#/Vol] 363 10*3/uL 150-450 [facility] Potassium measurement (mass/ volume)Ordered By: Silas Chaidez on 06-14-2025 Potassium (Unsp spec) [Mass/Vol] 3.9 mmol/L 3.3-5.1 [facility] RBC Auto (Bld) [#/Vol]Ordere d By: Silas Chaidez on 06-14-2025 RBC (Bld) [#/Vol] 4.91 10*6/uL 4.6-6.2 [facility] Serum creatinine measurement (mass/volume)Ordered By: Silas Chaidez on 06-14-2025 Creatinine [Mass/Vol] 0.70 mg/dL 0.70-1.20 [facility] Serum glucose measurement (m ass/volume)Ordered By: Silas Chaidez on 06-14-2025 Glucose [Mass/Vol] 96 mg/dL 70-99 [facility] Serum or plasma calcium martin urement (mass/volume)Ordered By: Silas Chaidez on 06-14-2025 Calcium [Mass/Vol] 9.0 mg/dL 7.6-11.0 [facility] [facility] Serum or plasma iron saturat ion measurement (mass fraction)Ordered By: Silas Chaidez on 06-14-2025 Iron saturation [Mass fraction] 7.1 % Low 9-55 [facility] Serum or plasma urea nitroge n measurement (mass/volume)Ordered By: Silas Chaidez on 06-14-2025 Urea nitrogen [Mass/Vol] 19 mg/dL 4-19 [facility] Sodium levelOrdered By: Vlad Chaidez on 06-14-2025 Sodium [Moles/Vol] 136 mmol/L 133-145 [facility] White blood cell (WBC) count Ordered By: Silas Chaidez on 06-14-2025 WBC (Bld) [#/Vol] 9.7 10*3/uL 4.4-11.0 [facility] Internal Medicine Office Vis brenda 09-15-2024 Internal Medicine Office Visit [facility] [address] [place] [address] [address] [place], [place] [id number] OFFICE VISIT Date of Service: 09/15/24 MR#: [id number] Acct: [id number] Name: DOREEN FELICIANO Rep #: [id number] : [id number] Provider: Dr. Silas Simpson own, DO Age/Sex: 74/M Location: [facility] [place].[facility] Status: Signed Intake Vital Signs 12/16/23 10:20 09/15/24 12:42 Height 5 ft 8 in 5 ft 8 in Weight: 212 lb 2 oz 208 lb BMI 32.2 31.6 BP 130/80 H 130/80 H Blood Pressure Location Lt brachial Lt brachial Position Sitting Sitting Respiration 16 16 Pulse 62 78 Pulse Source Monitor Monitor Temp 97.8 F 97.6 F L Temp Source Temporal Temporal Pulse Oximetry (%) 98 98 Oxygen Delivery Method room air room air Intake Visit Reasons: MED FU Chief Complaint: med fu Vascular Surgeon Required: No Accompanied by: Self Is patient in pain?: No Allergies hydrochlorothiazide (From Diovan HCT) Allergy (Unknown, Verified 09/15/24 12:39) Swelling valsartan (From Diovan HCT) Allergy (Unknown, Verified 09/15/24 12:39) Swelling Medications ???Medication ???Instructions ???Recorded ???Confirmed ???Type multivitamin 1 tab PO QAM 02/10/18 09/15/24 History vit A 300 mcg-C 200 mg-E 27 1 ea PO DAILY 03/30/18 09/15/24 History mg-lutein 2 mg and minerals tablet handicap placard #1 ea 08/20/23 09/15/24 Rx acetaminophen 650 mg 650 mg PO Q12H 12/16/23 09/15/24 History tablet,extended release (Tylenol 8 Hour) amlodipine 10 mg tablet 10 mg PO QDAY #90 tabs 09/15/24 09/15/24 Rx benazepril 20 mg tablet 20 mg PO QDAY #90 tabs 09/15/24 09/15/24 Rx Have you fallen in the past year?: No PFSH Medical History Impotence Hypertension Sciatica Surgical History History of colonoscopy History of back surgery Family History Mother CVA (cerebral vascular accident) Hypertension Father Hypertension Social History Smoking Status: Former smoker how long ago did patient quit smokin alcohol intake: current alcohol intake frequency: holidays/special occasions only Alcohol type: beer and wine substance use type: does not use what type of physical activity do you participate in: walking frequency: 1-2 times per week HPI HPI Chief Complaint: med fu Details: MIRA FELICIANO, is a 74 M who presents to the office today for his annual checkup. 8 months ago he had a right hip replacement and has done very well after that. Just prior to having the hip replaced he had a physical exam and blood work and that was all normal. ROS Const Constitutional: Positive for weakness and weight change; No body ache, chills, excessive sweating, fatigue, fever(s), frequent falls, headache(s), snoring or change in appetite Eyes Eyes: No blurry vision, change in vision, eye pain or Light sensitivity ENT ENT: No abnormal hearing, ear or mastoid pain, tinnitus, nasal congestion, headache(s), neck pain or sore throat Resp Respiratory: No cough, shortness of breath, snoring or wheezing Cardio Cardiology: No chest pain at rest, chest pain with exertion, excessive sweating, dyspnea on exertion, lightheadedness, orthopnea or palpitations Gastro GI: No abdominal pain, change in bowel habits, constipation, cramping, diarrhea, nausea/dyspepsia or vomiting Genitourinary Male: No burning urination, painful urination, urinary incontinence or urinary frequency Musc Musculoskeletal: No abnormal gait, joint pain, back pain, limited range of motion, muscle weakness, neck pain or numbness Skin Skin: No dry skin, redness, lesions, itchy eyes, rash or wounds Neuro Neurology: Positive for weakness; No abnormal gait, abnormal hearing, frequent falls, headache(s), memory loss or numbness Psych Psychiatric: No anxiety, No change in appetite, No depression, No memory loss and No Thoughts of harming yourself/Others Endo Endocrine: Positive for weight change; No cold intolerance, excessive sweating, fatigue, flushing, heat intolerance, increased thirst/drinking or increased hunger Aller/Imm Allergy/Immunologic : No itchy eyes, seasonal allergy symptoms, hives or wheezing Wisam/Lymp Hematologic/Lymphat ic: No easy bleeding or easy bruising Exam Const General: cooperative and healthy appearing HENMS Head: normal to inspection Ears: hearing grossly impaired (He wears hearing aids.) Nose: external nose normal Face and sinus: normal facial exam Mouth: oral mucosae normal Teeth and gingiva: dentition normal Eyes General: appearance normal, both eyes and all related structures Neck Neck: normal visual inspection Chest Chest palpation inspection: normal inspection of the (more content not included)... Normal [facility] Absolute lymphocyte countOrd ered By: Satya Michael on 12-08-2023 Lymphocytes Auto (Unsp spec) [#/Vol] 1.65 10*3/uL 0.83-4.51 [facility] Automated lymphocyte count a s percentage of total leukocytesOrdered By: Satya Michael on 12-08-2023 Lymphocytes/100 WBC Auto (Unsp spec) 19.1 % 19-41 [facility] Basophil percentageOrdered B y: Satya Michael on 12-08-2023 Basophils/100 WBC (Bld) 0.6 % 0-1 [facility] Chloride [Moles/Vol] 107 mmol/L 98-107 [facility] Eosinophils/100 WBC (Bld) 2.5 % 0-5 [facility] Glucose [Mass/Vol] 94 mg/dL 74-106 [facility] Hemoglobin (Bld) [Mass/Vol] 15.9 g/dL 13.0-16.5 [facility] Monocytes/100 WBC (Bld) 7.9 % 0-10 [facility] Neutrophils (Bld) [#/Vol] 6.0 10*3/uL 2.0-7.7 [facility] Neutrophils/100 WBC (Bld) 69.3 % 47-70 [facility] Potassium [Moles/Vol] 4.4 mmol/L 3.5-5.1 [facility] Sodium [Moles/Vol] 140 mmol/L 136-145 [facility] WBC (Bld) [#/Vol] 8.6 10*3/uL 4.4-11.0 [facility] Determination of erythrocyte mean corpuscular volume (MCV)Ordered By: Satya Michael on 12-08-2023 MCV (RBC) [Entitic vol] 90.7 fL 80-94 [facility] Erythrocyte distribution wid th ratioOrdered By: Satya Michael on 12-08-2023 Erythrocyte distribution width (RBC) [Ratio] 14.1 % 11.6-14.6 [facility] Erythrocyte distribution wid standard deviationOrdered By: Satya Michael on 12-08-2023 Erythrocyte distribution width (RBC) [Entitic vol] 46.8 fL 35.1-43.9 [facility] Hematocrit Auto (Bld) [Volum e fraction]Ordered By: Satya Michael on 12-08-2023 Hematocrit (Bld) [Volume fraction] 47.9 % 40-54 [facility] Immature granulocytes/100 WB C Auto (Bld)Ordered By: Satya Michael on 12-08-2023 Immature granulocytes/100 WBC (Bld) 0.600 % 0.0-0.9 [facility] Comment on above: IG% - Immature Granu locytes (promyelocytes, myelocytes and metamyelocytes) > 1% indicates that a LEFT SHIFT is Present. Laboratory - Chemistry and C hemistry - challengeOrdered By: Satya Michael on 12-08-2023 CO2 [Moles/Vol] 26.0 mmol/L 21.0-32.0 [facility] Urea nitrogen/Creatinine [Mass ratio] 18.7 mg/mg 10-20 [facility] Laboratory - Hematology and Cell countsOrdered By: Satya Michael on 12-08-2023 MCH (RBC) [Entitic mass] 30.1 pg 27.0-32.0 [facility] MCHC (RBC) [Mass/Vol] 33.2 g/dL 32-36 [facility] Nucleated RBC/100 WBC (Bld) [Ratio] 0 % 0-5 [facility] Platelet mean volume (Bld) [Entitic vol] 9.1 fL 6.2-12.0 [facility] Platelets (Bld) [#/Vol] 288 10*3/uL 150-450 [facility] No Panel InformationOrdered By: Satya Michael on 12-08-2023 Estimated GFR (MDRD) Amer 105 mL/min >60 [facility] Comment on above: GFR Calc Estimated GFR (MDRD) Non-Af Amer 87 mL/min >60 [facility] Comment on above: Non- GFR Calc RBC Auto (Bld) [#/Vol]Ordere d By: Satya Michael on 12-08-2023 RBC (Bld) [#/Vol] 5.28 10*6/uL 4.6-6.2 [facility] Serum or plasma calcium martin urement (mass/volume)Ordered By: Satya Michael on 12-08-2023 Calcium [Mass/Vol] 8.7 mg/dL 8.5-10.1 [facility] Serum or plasma creatinine m easurement (mass/volume)Ordered By: Satya Michael on 12-08-2023 Creatinine [Mass/Vol] 0.91 mg/dL 0.70-1.30 [facility] Comment on above: The validity of the calculated GFR & GFRAA in patients over 70 years has not been determined. Clinical correlation is essential. Serum or plasma urea nitroge n measurement (mass/volume)Ordered By: Satya Michael on 12-08-2023 Urea nitrogen [Mass/Vol] 17 mg/dL 7-18 [facility] Thin prep Papanicolaou smear with manual screeningOrdered By: Satya Michael on 12-08-2023 Thin prep Papanicolaou smear with manual screening 3.6 g/dL 3.2-5.0 [facility] Thin prep Papanicolaou smear with manual screening 7 5-15 [facility] Absolute lymphocyte countOrd ered By: Silas Chaidez on 09-03-2023 Lymphocytes Auto (Unsp spec) [#/Vol] 1.93 10*3/uL 0.83-4.51 [facility] Basophil percentageOrdered B y: Silas Chaidez on 09-03-2023 Basophils/100 WBC (Bld) 0.5 % 0-1 [facility] Eosinophils/100 WBC (Bld) 1.4 % 0-5 [facility] Neutrophils (Bld) [#/Vol] 7.6 10*3/uL 2.0-7.7 [facility] Neutrophils/100 WBC (Bld) 70.9 % 47-70 [facility] WBC (Bld) [#/Vol] 10.8 10*3/uL 4.4-11.0 [facility] Blood erythrocytes count (nu mber/volume)Ordered By: Silas Chaidez on 09-03-2023 RBC (Bld) [#/Vol] 5.15 10*6/uL 4.6-6.2 [facility] Blood hemoglobin measurement (mass/volume)Ordered By: Silas Chaidez on 09-03-2023 Hemoglobin (Bld) [Mass/Vol] 15.4 g/dL 13.0-16.5 [facility] Blood lymphocytes/100 leukoc ytesOrdered By: Silas Chaidez on 09-03-2023 Lymphocytes/100 WBC (Bld) 17.9 % 19-41 [facility] Blood monocytes/100 leukocyt esOrdered By: Silas Chaidez on 09-03-2023 Monocytes/100 WBC (Bld) 8.1 % 0-10 [facility] Blood platelet mean volumeOr dered By: Silas Chaidez on 09-03-2023 Platelet mean volume (Bld) [Entitic vol] 9.5 fL 6.2-12.0 [facility] Determination of erythrocyte mean corpuscular volume (MCV)Ordered By: Silas Chaidez on 09-03-2023 MCV (RBC) [Entitic vol] 92.6 fL 80-94 [facility] Hematocrit Auto (Bld) [Volum e fraction]Ordered By: Silas Chaidez on 09-03-2023 Hematocrit (Bld) [Volume fraction] 47.7 % 40-54 [facility] Laboratory - Hematology and Cell countsOrdered By: Silas Chaidez on 09-03-2023 Erythrocyte distribution width (RBC) [Entitic vol] 44.5 fL 35.1-43.9 [facility] Erythrocyte distribution width (RBC) [Ratio] 13.2 % 11.6-14.6 [facility] Immature granulocytes/100 WBC (Bld) 1.200 % 0.0-0.9 [facility] Comment on above: IG% - Immature Granu locytes (promyelocytes, myelocytes and metamyelocytes) > 1% indicates that a LEFT SHIFT is Present. MCH (RBC) [Entitic mass] 29.9 pg 27.0-32.0 [facility] Nucleated RBC/100 WBC (Bld) [Ratio] 0 % 0-5 [facility] MCHC Auto (RBC) [Mass/Vol]Or dered By: Silas Chaidez on 09-03-2023 MCHC (RBC) [Mass/Vol] 32.3 g/dL 32-36 [facility] Platelets bldOrdered By: Nan an Dm on 09-03-2023 Platelets (Bld) [#/Vol] 339 10*3/uL 150-450 [facility] Absolute lymphocyte countOrd ered By: Silasmissy Chaidez on 08-29-2023 Lymphocytes Auto (Unsp spec) [#/Vol] 1.90 10*3/uL 0.83-4.51 [facility] Basophil percentageOrdered B y: Silasmissy Chaidez on 08-29-2023 Basophils/100 WBC (Bld) 0.4 % 0-1 [facility] Eosinophils/100 WBC (Bld) 1.3 % 0-5 [facility] Neutrophils (Bld) [#/Vol] 8.6 10*3/uL 2.0-7.7 [facility] Neutrophils/100 WBC (Bld) 73.7 % 47-70 [facility] WBC (Bld) [#/Vol] 11.6 10*3/uL 4.4-11.0 [facility] Blood erythrocytes count (nu mber/volume)Ordered By: Silas Chaidez on 08-29-2023 RBC (Bld) [#/Vol] 5.34 10*6/uL 4.6-6.2 [facility] Blood hemoglobin measurement (mass/volume)Ordered By: Silas Chaidez on 08-29-2023 Hemoglobin (Bld) [Mass/Vol] 16.3 g/dL 13.0-16.5 [facility] Blood lymphocytes/100 leukoc ytesOrdered By: Silas Chaidez on 08-29-2023 Lymphocytes/100 WBC (Bld) 16.3 % 19-41 [facility] Blood monocytes/100 leukocyt esOrdered By: Silas Chaidez on 08-29-2023 Monocytes/100 WBC (Bld) 7.2 % 0-10 [facility] Blood platelet mean volumeOr dered By: Silas Chaidez on 08-29-2023 Platelet mean volume (Bld) [Entitic vol] 9.3 fL 6.2-12.0 [facility] Determination of erythrocyte mean corpuscular volume (MCV)Ordered By: Silas Chaidez on 08-29-2023 MCV (RBC) [Entitic vol] 91.4 fL 80-94 [facility] Hematocrit Auto (Bld) [Volum e fraction]Ordered By: Silas Chaidez on 08-29-2023 Hematocrit (Bld) [Volume fraction] 48.8 % 40-54 [facility] Laboratory - Hematology and Cell countsOrdered By: Silas Chaidez on 08-29-2023 Erythrocyte distribution width (RBC) [Entitic vol] 45.1 fL 35.1-43.9 [facility] Erythrocyte distribution width (RBC) [Ratio] 13.4 % 11.6-14.6 [facility] Immature granulocytes/100 WBC (Bld) 1.100 % 0.0-0.9 [facility] Comment on above: IG% - Immature Granu locytes (promyelocytes, myelocytes and metamyelocytes) > 1% indicates that a LEFT SHIFT is Present. MCH (RBC) [Entitic mass] 30.5 pg 27.0-32.0 [facility] Nucleated RBC/100 WBC (Bld) [Ratio] 0 % 0-5 [facility] MCHC Auto (RBC) [Mass/Vol]Or dered By: Silas Chaidez on 08-29-2023 MCHC (RBC) [Mass/Vol] 33.4 g/dL 32-36 [facility] Platelets bldOrdered By: Nan Chaidez on 08-29-2023 Platelets (Bld) [#/Vol] 310 10*3/uL 150-450 [facility] Absolute lymphocyte countOrd ered By: Silas Chaidez on 08-20-2023 Lymphocytes Auto (Unsp spec) [#/Vol] 0.90 10*3/uL 0.83-4.51 [facility] Basophil percentageOrdered B y: Silas Chaidez on 08-20-2023 Basophils/100 WBC (Bld) 0.5 % 0-1 [facility] Bilirubin [Mass/Vol] 1.00 mg/dL 0.20-1.00 [facility] Comment on above: For patients on eltr ombopag therapy, use of Dimension Boyd TBIL is not recommended. Chloride [Moles/Vol] 107 mmol/L 98-107 [facility] Cholesterol [Mass/Vol] 153 mg/dL <200 [facility] Comment on above: <200 mg/dL Desirable 200-240 mg/dL Borderline >240 mg/dL High Risk Eosinophils/100 WBC (Bld) 0.1 % 0-5 [facility] Glucose [Mass/Vol] 112 mg/dL 74-106 [facility] Comment on above: Fasting Glucose resu lt from 100 to 125 mg/dL suggests IMPAIRED HOMEOSTASIS per A.D.A. criteria. Neutrophils (Bld) [#/Vol] 12.3 10*3/uL 2.0-7.7 [facility] Neutrophils/100 WBC (Bld) 87.4 % 47-70 [facility] Potassium [Moles/Vol] 4.2 mmol/L 3.5-5.1 [facility] Protein [Mass/Vol] 7.3 g/dL 6.4-8.2 [facility] Sodium [Moles/Vol] 138 mmol/L 136-145 [facility] Triglyceride [Mass/Vol] 48 mg/dL <199 [facility] Comment on above: The drugs N-Acetylcy steine and Metamizole may falsely depress this assay.Serum Triglycerides Reference Interval Normal <150 mg/dL Borderline high 150 - 199 mg/dL High 200 - 499 mg/dL Very High > or = 500 mg/dL WBC (Bld) [#/Vol] 14.1 10*3/uL 4.4-11.0 [facility] Blood erythrocytes count (nu mber/volume)Ordered By: Silas Chaidez on 08-20-2023 RBC (Bld) [#/Vol] 5.27 10*6/uL 4.6-6.2 [facility] Blood hemoglobin measurement (mass/volume)Ordered By: Silas Chaidez on 08-20-2023 Hemoglobin (Bld) [Mass/Vol] 15.9 g/dL 13.0-16.5 [facility] Blood lymphocytes/100 leukoc ytesOrdered By: Silas Chaidez on 08-20-2023 Lymphocytes/100 WBC (Bld) 6.4 % 19-41 [facility] Blood monocytes/100 leukocyt esOrdered By: Silas Chaidez on 08-20-2023 Monocytes/100 WBC (Bld) 4.4 % 0-10 [facility] Blood platelet mean volumeOr dered By: Silas Chaidez on 08-20-2023 Platelet mean volume (Bld) [Entitic vol] 9.5 fL 6.2-12.0 [facility] Determination of erythrocyte mean corpuscular volume (MCV)Ordered By: Silas Chaidez on 08-20-2023 MCV (RBC) [Entitic vol] 91.1 fL 80-94 [facility] Hematocrit Auto (Bld) [Volum e fraction]Ordered By: Silas Chaidez on 08-20-2023 Hematocrit (Bld) [Volume fraction] 48.0 % 40-54 [facility] Laboratory - Chemistry and C hemistry - challengeOrdered By: Silasmissy Chaidez on 08-20-2023 ALP [Catalytic activity/Vol] 73 U/L 45-117 [facility] ALT [Catalytic activity/Vol] 24 U/L 16-61 [facility] CO2 [Moles/Vol] 22.0 mmol/L 21.0-32.0 [facility] Globulin (S) [Mass/Vol] 3.8 g/dL 2.2-4.2 [facility] Urea nitrogen/Creatinine [Mass ratio] 22.7 mg/mg 10-20 [facility] Laboratory - Hematology and Cell countsOrdered By: Silas Chaidez on 08-20-2023 Erythrocyte distribution width (RBC) [Entitic vol] 45.5 fL 35.1-43.9 [facility] Erythrocyte distribution width (RBC) [Ratio] 13.5 % 11.6-14.6 [facility] Immature granulocytes/100 WBC (Bld) 1.200 % 0.0-0.9 [facility] Comment on above: IG% - Immature Granu locytes (promyelocytes, myelocytes and metamyelocytes) > 1% indicates that a LEFT SHIFT is Present. MCH (RBC) [Entitic mass] 30.2 pg 27.0-32.0 [facility] Nucleated RBC/100 WBC (Bld) [Ratio] 0 % 0-5 [facility] MCHC Auto (RBC) [Mass/Vol]Or dered By: Silas Chaidez on 08-20-2023 MCHC (RBC) [Mass/Vol] 33.1 g/dL 32-36 [facility] No Panel InformationOrdered By: Silas Chaidez on 08-20-2023 Estimated GFR (MDRD) Amer 131 mL/min >60 [facility] Comment on above: GFR Calc Estimated GFR (MDRD) Non-Af Amer 108 mL/min >60 [facility] Comment on above: Non- GFR Calc Prostate Specific Antigen Total 9.07 ng/mL 0.0-4.0 [facility] Comment on above: This test was perfor med using the TPSA assay method for the[employer] chemistry system. Values obtained with differentassay methods cannot be used interchangably.When changing PSA assays in the course of monitoring apatient, additional sequential testing should be carriedout to confirm baseline values. Platelets bldOrdered By: Nan Chaidez on 08-20-2023 Platelets (Bld) [#/Vol] 318 10*3/uL 150-450 [facility] Serum or plasma albumin martin urement (mass/volume)Ordered By: Silas Chaidez on 08-20-2023 Albumin [Mass/Vol] 3.5 g/dL 3.2-5.0 [facility] Serum or plasma albumin/glob ulin mass ratioOrdered By: Silas Chaidez on 08-20-2023 Albumin/Globulin [Mass ratio] 0.9 {ratio} 0.9-2.4 [facility] Serum or plasma calcium martin urement (mass/volume)Ordered By: Silas Chaidez on 08-20-2023 Calcium [Mass/Vol] 8.5 mg/dL 8.5-10.1 [facility] Serum or plasma cholesterol in HDL measurement (mass/volume)Ordered By: Silas Chaidez on 08-20-2023 Cholesterol in HDL [Mass/Vol] 70 mg/dL >40 [facility] Comment on above: The drugs N-Acetylcy steine and Metamizole may falsely depress this assay. Reference Range HDL <40 mg/dL Low HDL Cholesterol HDL >or= 60 mg/dL High HDL Cholesterol Serum or plasma cholesterol in VLDL measurement (mass/volume)Ordered By: Silas Chaidez on 08-20-2023 Cholesterol in VLDL [Mass/Vol] 10 mg/dL 5-40 [facility] Serum or plasma creatinine m easurement (mass/volume)Ordered By: Silas Chaidez on 08-20-2023 Creatinine [Mass/Vol] 0.75 mg/dL 0.70-1.30 [facility] Comment on above: The validity of the calculated GFR & GFRAA in patients over 70 years has not been determined. Clinical correlation is essential. Serum or plasma low density lipoprotein (LDL) cholesterol measurement (mass/volume)Ordered By: Silas Chaidez on 08-20-2023 Cholesterol in LDL [Mass/Vol] 73 mg/dL 0-130 [facility] Serum or plasma urea nitroge n measurement (mass/volume)Ordered By: Silas Chaidez on 08-20-2023 Urea nitrogen [Mass/Vol] 17 mg/dL 7-18 [facility] Thin prep Papanicolaou smear with manual screeningOrdered By: Silas Chaidez on 08-20-2023 Thin prep Papanicolaou smear with manual screening 12 U/L 15-37 [facility] Thin prep Papanicolaou smear with manual screening 9 5-15 [facility] No Panel InformationOrdered By: Silas Chaidez on 06-04-2023 Prostate Specific Antigen Total 9.84 ng/mL 0.0-4.0 [facility] Comment on above: This test was perfor med using the TPSA assay method for [employer] chemistry system. Values obtained with differentassay methods cannot be used interchangably.When changing PSA assays in the course of monitoring apatient, additional sequential testing should be carriedout to confirm baseline values. COLONOSCOPY DIAGNOSTICon [facility] No Panel Informationon 02-20 [facility] Basophil percentageon 2021 Bilirubin [Mass/Vol] 0.50 mg/dL 0.20-1.00 [facility] Work Phone: Comment on above: For patients on eltr ombopag therapy, use of Dimension [place] TBIL is not recommended. Chloride [Moles/Vol] 105 mmol/L 98-107 [facility] Work Phone: Cholesterol [Mass/Vol] 133 mg/dL <200 [facility] Work Phone: Comment on above: <200 mg/dL Desirable 200-240 mg/dL Borderline >240 mg/dL High Risk Glucose [Mass/Vol] 84 mg/dL 74-106 [facility] Work Phone: [phone] Potassium [Moles/Vol] 4.2 mmol/L 3.5-5.1 [facility] Work Phone: Protein [Mass/Vol] 7.4 g/dL 6.4-8.2 [facility] Work Phone: Sodium [Moles/Vol] 137 mmol/L 136-145 [facility] Work Phone: [phone] Triglyceride [Mass/Vol] 87 mg/dL <199 [facility] Work Phone: [phone] Comment on above: The drugs N-Acetylcy steine and Metamizole may falsely depress this assay.Serum Triglycerides Reference Interval Normal <150 mg/dL Borderline high 150 - 199 mg/dL High 200 - 499 mg/dL Very High > or = 500 mg/dL Laboratory - Chemistry and C hemistry - challengeon 07-23-2022 ALP [Catalytic activity/Vol] 69 U/L 45-117 [facility] Work Phone: ALT [Catalytic activity/Vol] 29 U/L 16-61 [facility] Work Phone: CO2 [Moles/Vol] 25.0 mmol/L 21.0-32.0 [facility] Work Phone: Globulin (S) [Mass/Vol] 4.1 g/dL 2.2-4.2 [facility] Work Phone: Urea nitrogen/Creatinine [Mass ratio] 26.3 mg/mg 10-20 [facility] Work Phone: No Panel Informationon 07-23 Estimated GFR (MDRD) Amer 146 mL/min >60 [facility] Work Phone: Comment on above: GFR Calc Estimated GFR (MDRD) Non-Af Amer 120 mL/min >60 [facility] Work Phone: Comment on above: Non- GFR Calc Prostate Specific Antigen Total 10.80 ng/mL 0.0-4.0 [facility] Work Phone: Comment on above: This test was perfor med using the TPSA assay method for the[employer] chemistry system. Values obtained with differentassay methods cannot be used interchangably.When changing PSA assays in the course of monitoring apatient, additional sequential testing should be carriedout to confirm baseline values. Serum or plasma albumin martin urement (mass/volume)on 07-23-2022 Albumin [Mass/Vol] 3.3 g/dL 3.2-5.0 [facility] Work Phone: Serum or plasma albumin/glob ulin mass ratioon 07-23-2022 Albumin/Globulin [Mass ratio] 0.8 {ratio} 0.9-2.4 [facility] Work Phone: Serum or plasma calcium martin urement (mass/volume)on 07-23-2022 Calcium [Mass/Vol] 8.7 mg/dL 8.5-10.1 [facility] Work Phone: Serum or plasma cholesterol in HDL measurement (mass/volume)on 07-23-2022 Cholesterol in HDL [Mass/Vol] 41 mg/dL >40 [facility] Work Phone: Comment on above: The drugs N-Acetylcy steine and Metamizole may falsely depress this assay. Reference Range HDL <40 mg/dL Low HDL Cholesterol HDL >or= 60 mg/dL High HDL Cholesterol Serum or plasma cholesterol in VLDL measurement (mass/volume)on 07-23-2022 Cholesterol in VLDL [Mass/Vol] 17 mg/dL 5-40 [facility] Work Phone: Serum or plasma creatinine m easurement (mass/volume)on 07-23-2022 Creatinine [Mass/Vol] 0.68 mg/dL 0.70-1.30 [facility] Work Phone: Comment on above: The validity of the calculated GFR & GFRAA in patients over 70 years has not been determined. Clinical correlation is essential. Serum or plasma low density lipoprotein (LDL) cholesterol measurement (mass/volume)on 07-23-2022 Cholesterol in LDL [Mass/Vol] 75 mg/dL 0-130 [facility] Work Phone: Serum or plasma urea nitroge n measurement (mass/volume)on 07-23-2022 Urea nitrogen [Mass/Vol] 18 mg/dL 7-18 [facility] Work Phone: Thin prep Papanicolaou smear with manual screeningon 07-23-2022 Thin prep Papanicolaou smear with manual screening 13 U/L 15-37 [facility] Work Phone: Thin prep Papanicolaou smear with manual screening 7 5-15 [facility] Work Phone: Vital Signs Date Time Vital Sign Value Performing Clinician Faci lity 06-14-2025 15:11-0400 Body height 172.[address] Silas Chaidez DO Work Phone: [facility] 06-14-2025 15:11-0400 Body mass index (BMI) [Ratio] 30.7 kg/m2 Dr. Silas Chaidez DO Work Phone: [facility] 06-14-2025 15:11-0400 Body temperature 97.3 [degF] Dr. Silas Chaidez DO Work Phone: [facility] 06-14-2025 15:11-0400 Body weight 91.[address] Silas Chaidez DO Work Phone: [facility] 06-14-2025 15:11-0400 Diastolic blood pressure 84 mm[Hg] Dr. Silas Chaidez DO Work Phone: [facility] 06-14-2025 15:11-0400 Heart rate 72 /min Dr. Silas Chaidez DO Work Phone: [facility] 06-14-2025 15:11-0400 Respiratory rate 16 /min Dr. Silas Chaidez DO Work Phone: [facility] 06-14-2025 15:11-0400 SaO2% (BldA) [Mass fraction] 97 % Dr. Silas Chaidez DO Work Phone: [facility] 06-14-2025 15:11-0400 Systolic blood pressure 124 mm[Hg] Dr. Silas Chaidez DO Work Phone: [facility] 12-16-2023 10:20-0400 Body height 172.[address] Silas Chaidez Work Phone: [facility] 12-16-2023 10:20-0400 Body mass index (BMI) [Ratio] 32.2 kg/m2 Dr. Silas Chaidez Work Phone: [facility] 12-16-2023 10:20-0400 Body temperature 97.8 [degF] Dr. Silas Chaidez Work Phone: [facility] 12-16-2023 10:20-0400 Body weight 96.[address] Silas Chaidez Work Phone: [facility] 12-16-2023 10:20-0400 Diastolic blood pressure 80 mm[Hg] Dr. Silas Chaidez Work Phone: [facility] 12-16-2023 10:20-0400 Heart rate 62 /min Dr. Silas Chaidez Work Phone: [facility] 12-16-2023 10:20-0400 Respiratory rate 16 /min Dr. Silas Chaidez Work Phone: [facility] 12-16-2023 10:20-0400 SaO2% (BldA) [Mass fraction] 98 % Dr. Silas Chaidez Work Phone: [facility] 12-16-2023 10:20-0400 Systolic blood pressure 130 mm[Hg] Dr. Silas Chaidez Work Phone: [facility] 08-20-2023 13:54-0500 Body height 172.[address] Silas Chaidez Work Phone: [facility] 08-20-2023 13:54-0500 Body mass index (BMI) [Ratio] 30.9 kg/m2 Dr. Silas Chaidez Work Phone: [facility] 08-20-2023 13:54-0500 Body temperature 97 [degF] Dr. Silas Chaidez Work Phone: [facility] 08-20-2023 13:54-0500 Body weight 92.[address] Silas Chaidez Work Phone: [facility] 08-20-2023 13:54-0500 Diastolic blood pressure 78 mm[Hg] Dr. Silas Chaidez Work Phone: [facility] 08-20-2023 13:54-0500 Heart rate 82 /min Dr. Sials Chaidez Work Phone: [facility] 08-20-2023 13:54-0500 Respiratory rate 14 /min Dr. Silas Chaidez Work Phone: [facility] 08-20-2023 13:54-0500 SaO2% (BldA) [Mass fraction] 96 % Dr. Silas Chaidez Work Phone: [facility] 08-20-2023 13:54-0500 Systolic blood pressure 116 mm[Hg] Dr. Silas Chaidez Work Phone: [facility] 07-18-2023 09:09-0500 Body mass index (BMI) [Ratio] 31 kg/m2 Dr. Silas Chaidez Work Phone: [facility] 07-18-2023 09:09-0500 Body temperature 97.6 [degF] Dr. Silas Chaidez Work Phone: [facility] 07-18-2023 09:09-0500 Body weight 92.[address] Silas Chaidez Work Phone: [facility] 07-18-2023 09:09-0500 Diastolic blood pressure 80 mm[Hg] Dr. Silas Chaidez Work Phone: [facility] 07-18-2023 09:09-0500 Heart rate 74 /min Dr. Silas Chaidez Work Phone: [facility] 07-18-2023 09:09-0500 Respiratory rate 16 /min Dr. Silas Chaidez Work Phone: [facility] 07-18-2023 09:09-0500 SaO2% (BldA) [Mass fraction] 97 % Dr. Silas Chaidez Work Phone: [facility] 07-18-2023 09:09-0500 Systolic blood pressure 138 mm[Hg] Dr. Silas Chaidez Work Phone: [facility] 06-02-2023 08:50-0400 Diastolic blood pressure 79 mm[Hg] Tim Rai MD Work Phone: [facility] 06-02-2023 08:50-0400 Heart rate 68 /min Tim Rai MD Work Phone: [facility] 06-02-2023 08:50-0400 Respiratory rate 16 /min Tim Rai MD Work Phone: [facility] 06-02-2023 08:50-0400 SaO2% (BldA) [Mass fraction] 96 % Tim Rai MD Work Phone: [facility] 06-02-2023 08:50-0400 Systolic blood pressure 139 mm[Hg] Tim Rai MD Work Phone: [facility] 06-02-2023 07:39-0400 Body temperature 97.3 [degF] Tim Rai MD Work Phone: [facility] 06-02-2023 07:39-0400 Body weight 92.1 kg Tim Rai MD Work Phone: [facility] 02-28-2023 08:14-0400 Body temperature 97 [degF] Tim Rai MD Work Phone: [facility] 02-28-2023 08:14-0400 Body weight 92.08 kg Tim Rai MD Work Phone: [facility] 02-28-2023 08:14-0400 Diastolic blood pressure 78 mm[Hg] Tim Rai MD Work Phone: [facility] 02-28-2023 08:14-0400 Heart rate 82 /min Tim Rai MD Work Phone: [facility] 02-28-2023 08:14-0400 SaO2% (BldA) [Mass fraction] 96 % Tim Rai MD Work Phone: [facility] 02-28-2023 08:14-0400 Systolic blood pressure 136 mm[Hg] Tim Rai MD Work Phone: [facility] 02-20-2023 11:10-0400 Diastolic blood pressure 94 mm[Hg] Tim Rai MD Work Phone: [facility] 02-20-2023 11:10-0400 Heart rate 73 /min Tim Rai MD Work Phone: [facility] 02-20-2023 11:10-0400 Respiratory rate 16 /min Tim Rai MD Work Phone: [facility] 02-20-2023 11:10-0400 SaO2% (BldA) [Mass fraction] 95 % Tim Rai MD Work Phone: [facility] 02-20-2023 11:10-0400 Systolic blood pressure 170 mm[Hg] Tim Rai MD Work Phone: [facility] 02-20-2023 09:21-0400 Body temperature 97 [degF] Tim Rai MD Work Phone: [facility] 02-20-2023 09:21-0400 Body weight 92.4 kg Tim Rai MD Work Phone: [facility] 07-23-2022 09:26-0500 Body height 172.[address] Silas Chaidez Work Phone: [facility] Work Phone: 07-23-2022 09:26-0500 Body mass index (BMI) [Ratio] 30.9 kg/m2 Dr. Silas Chaidez Work Phone: [facility] Work Phone: 07-23-2022 09:26-0500 Body temperature 98.1 [degF] Dr. Silas Chaidez Work Phone: [facility] Work Phone: 07-23-2022 09:26-0500 Body weight 92.[address] Silas Chaidez Work Phone: [facility] Work Phone: 07-23-2022 09:26-0500 Diastolic blood pressure 78 mm[Hg] Dr. Silas Chaidez Work Phone: [facility] Work Phone: 07-23-2022 09:26-0500 Heart rate 89 /min Dr. Silas Chaidez Work Phone: [facility] Work Phone: 07-23-2022 09:26-0500 Respiratory rate 14 /min Dr. Silas Chaidez Work Phone: [facility] Work Phone: 07-23-2022 09:26-0500 SaO2% (BldA) [Mass fraction] 97 % Dr. Silas Chaidez Work Phone: [facility] Work Phone: 07-23-2022 09:26-0500 Systolic blood pressure 120 mm[Hg] Dr. Silas Chaidez Work Phone: [facility] Work Phone: Encounters Encounter Date Encounter Type Care Provider Facility Start: 06-14-2025 End: 06-14-[address] Silas Benitez DO -[facility] [place] Work Phone: Start: 06-14-2025 End: 06-14-[address] Silas Chaidez DO Work Phone: -[facility] Start: 06-14-2025 End: 06-14-2025 ambulatory Silas Chaidez Facility:[facility] Start: 09-29-2024 End: 09-29-2024 Orders Only Tim Rai MD Work Phone: General Surgery Comment on above: Encounter for screen ing for malignant neoplasm of colon (Primary Dx) Start: 09-15-2024 End: 09-15-2024 ambulatory Silas Chaidez Facility:[facility] Start: 01-02-2024 End: 01-02-[address] Silas Chaidez Work Phone: [facility] Work Phone: Start: 01-02-2024 End: 01-02-[address] [facility] Work [facility] Start: 12-16-2023 End: 12-16-[address] Silas Chaidez Work Phone: [facility] Internal Medicine Work Phone: Start: 12-08-2023 End: 12-08-2023 Non-patient / Non-visit Dr. Silas Chaidez Work Phone: [facility] Work Phone: Start: 12-08-2023 End: 12-08-[address] Silas Chaidez Work Phone: [facility] Work Phone: Start: 12-08-2023 End: 12-08-[address] Silas Chaidez Work Phone: [facility]-Pulmonary Services/Neurology Work Phone: Start: 09-03-2023 End: 09-03-[address] Silas Chaidez Work Phone: [facility] Work Phone: Start: 09-03-2023 End: 09-03-[address] Silas Chaidez Work Phone: [facility], [facility] Start: 09-02-2023 End: 09-02-[address] Silas Chaidez Work Phone: [facility] Work Phone: Start: 09-02-2023 End: 09-02-[address] [facility] Start: 09-02-[address] Nadira [facility] Start: 08-29-2023 End: 08-29-[address] Silas Chaidez Work Phone: [facility] [place] Start: 08-20-2023 End: 08-20-[address] Silas Chaidez Work Phone: [facility] Internal Medicine Work Phone: Start: 07-18-2023 End: 07-18-[address] Silas Chaidez Work Phone: [facility] Internal Medicine Work Phone: Start: 06-04-2023 End: 06-04-[address] Silas Chaidez Work Phone: [facility] [place] Start: 06-02-2023 End: 06-02-2023 Subsequent hospital visit by physician Tim Rai MD Work Phone: Ambulatory Surgery Comment on above: Personal history of colonic polyps [Z86.010] Start: 02-28-2023 End: 02-28-2023 Patient encounter procedure Tmi Rai MD Work Phone: General Surgery Comment on above: Personal history of colonic polyps (Primary Dx) Start: 02-20-2023 End: 02-20-2023 Subsequent hospital visit by physician Tim Rai MD Work Phone: Ambulatory Surgery Comment on above: Personal history of colonic polyps [Z86.010] Start: 02-12-2023 Orders Only Kavya Lock Work Phone: General Surgery Start: 02-04-2023 Telephone encounter Kavya osborne PA-C Work Phone: General Surgery Comment on above: 02/20/2023 colon asc Start: 07-23-2022 End: 07-23-[address] Silas Chaidez Work Phone: [facility] Work Phone: Start: 07-23-2022 End: 07-23-[address] Silas Chaidez Work Phone: [facility] Internal Medicine Procedures Date Procedure Procedure Detail Performing Clinician Start: 06-14-2025 Total iron binding capacity measurement Dr. Silas Chaidez DO Work Phone: Start: 06-02-2023 Colonoscopy flx dx w /collj spec when pfrmd Tim Rai MD Work Phone: Start: 06-02-2023 Colonoscopy Tim tobin MD Work Phone: Start: 02-20-2023 Colonoscopy flx dx w /collj spec when pfrmd Kavya Emerson PA-C Work Phone: Start: 02-20-2023 Colonoscopy Kavya Gra f PA-C Work Phone: Plan of Treatment Date Care Activity Detail Author Start: 09-01-2024 Advance Directive Discussion Advance Directive Discussion [facility] Start: 06-02-2024 Colonoscopy Colonoscopy [facility] Start: 06-02-2024 Colorectal Cancer Screening Colorectal Cancer Screening [facility] Start: 05-02-2024 Covid-19 Vaccine () Covid-19 Vaccine () [facility] Start: 05-02-2024 Influenza vaccination Influenza Vacc ine (#1) [facility] Start: 02-21-2024 Colonoscopy COLONOSCOPY [facility] Start: 02-21-2024 COLORECTAL CANCER SCREENING COLORECTAL CANCER SCREENING [facility] Start: 2023 RSV Vaccine (1 - 1-d ose 75+ series) RSV Vaccine (1 - 1-dose 75+ series) [facility] Start: 05-02-2023 Influenza vaccination C [facility] Start: 09-01-2022 ADVANCE DIRECTIVE DISCUSSION ADVANCE DIRECTIVE DISCUSSION [facility] Start: 09-01-2022 DEPRESSION ASSESSMENT DEPRESSION ASS ESSMENT [facility] Start: 06-24-2020 Pneumococcal Vaccine : 50+ (2 of 2 - PPSV23) Pneumococcal Vaccine: 50+ (2 of 2 - PPSV23) [facility] Start: 2013 Pneumococcal Vaccine : 65+ (1 - PCV) Pneumococcal Vaccine: 65+ (1 - PCV) [facility] Start: 2013 PNEUMOCOCCAL: 65+ (1 - PCV) PNEUMOCOCCAL: 65+ (1 - PCV) [facility] Start: 1998 SHINGRIX VACCINE (1 of 2) SHINGRIX VACCINE (1 of 2) [facility] Start: 09-07-1997 Urine microalbumin profile DTaP,Tdap,Td Vaccine (1 - Tdap) [facility] Start: 1993 COLOGUARD (FIT-DNA) COLOGUARD (FIT-D NA) [facility] Start: 1993 Colonoscopy COLONOSCOPY [facility] Start: 1993 COLORECTAL CANCER SCREENING COLORECTAL CANCER SCREENING [facility] Start: [address] COLONOGRAPHY [facility] Start: 1993 DIABETES SCREEN DIABETES SCREEN [facility] Start: 1993 Diabetes Screening Diabetes Screenin g [facility] Start: 1993 FECAL OCCULT BLOOD FECAL OCCULT BLOO D [facility] Start: 1993 SIGMOIDOSCOPY SIGMOIDOSCOPY [facility] Start: 1983 Lipid 1996 panel - S morris or Plasma Lipid Screening [facility] Start: 1983 LIPID SCREEN LIPID SCREEN [facility] Start: 1967 Urine microalbumin profile [facility] Start: 1966 Anxiety Screening Anxiety Screening [facility] Start: 1966 Depression Screening Depression Scre ening [facility] Start: 1966 HEPATITIS C SCREENING HEPATITIS C [facility] Start: 1966 Hepatitis C screening Hepatitis C [facility] Start: 02-08-1949 COVID-19 VACCINE (#1) COVID-19 VACCI NE (#1) [facility] Start: 1950 ABDOMINAL AORTIC ANEURYSM SCREENING ABDOMINAL AORTIC ANEURYSM SCREENING [facility] End: 02-29-2024 COLONOSCOPY DIAGNOSTIC COLONOSCOPY DIAGNOSTIC Endoscopy Routine Personal history of colonic polyps 1 Occurrences starting 02/28/2023 until 02/29/[address] [facility] Work Phone: Comment on above: 1 Occurrences starti ng 02/28/2023 until 02/29/2024 Prostate specific antigen measurement [facility] Work Phone: [facility] Immunizations Immunization Date Immunization Notes Care Provider Fa kimberly 06-24-2019 influenza virus vacc ine, unspecified formulation Tim Rai MD Work Phone: [facility] Payers Date Payer Category Payer Self-pay [id number] [phone] 2016 Unknown NATALIO LANCE ME DICARE SUPPLEMENT [id number] 2016-Present [phone] [address] [place] [address] Indemnity [id number] 2016 Unknown [id number] 2013 Medicare [id number] 2013 Medicare MEDICARE MEDICAR E A AND B [id number] 2013-Present [phone] [address] [address] [place] [address] Medicare [id number] Unknown [id number] 2 Unknown [id number] 2 Unknown [id number] 2 Social History Date Type Detail Facility Start: 07-23-2022 End: 12-16-2023 Tobacco smoking status NHIS Unknown if ever smoked [facility] Start: 1950 Sex Assigned At Male [facility] Start: 02-03-2023 End: 12-16-2023 Tobacco smoking status NHIS Ex-smoker [facility] End: 09-01-1967 History of tobacco use Current smoker [facility] End: 09-01-1967 History of tobacco use Cigarette Smoker [facility] Start: 02-03-2023 Tobacco use and exposure Smokeless tobacco non-user [facility] Start: 02-04-2023 End: 07-17-2023 Alcohol intake Current drinker of alcohol (finding) [facility] Start: 02-03-2023 Alcohol Comment occasional [facility] Start: 1950 Sex Assigned At Not on file C [facility] Start: 02-20-2023 End: 07-17-2023 History of Social function [facility] Start: 02-20-2023 End: 07-17-2023 Tobacco use panel [facility] Clinical Notes 02-12-2023 to 06-14-2025 Note Date & Type Note Facility 06-14-2025 Progress note [facility] 06-14-2025 Progress note Note Date/Time June 14, 2025 3:38pm [facility] [address] [place] [id number] OFFICE VISIT Date of Service: 06/14/25 MR#: [id number] Acct: [id number] Name: MIRA FELICIANO Rep #: [id number] : 1950 Provider: Dr. Vlad Chaidez, Age/Sex: 74/M Location: [facility] Status: Signed Intake Vital Signs 09/15/24 12:42 06/14/25 15:11 Height 5 ft 8 in 5 ft 8 in Weight: 208 lb 202 lb BMI 31.6 30.7 BP 130/80 H 124/84 H Blood Pressure Location Lt brachial Lt brachial Position Sitting Sitting Respiration 16 16 Pulse 78 72 Pulse Source Monitor Monitor Temp 97.6 F L 97.3 F L Temp Source Temporal Temporal Pulse Oximetry (%) 98 97 Oxygen Delivery Method room air room air Intake Visit Reasons: Multiple concerns Chief Complaint: med fu Vascular Surgeon Required: No Is patient in pain?: No Allergies hydrochlorothiazide (From [facility]) Allergy (Unknown, Verified 06/14/25 14:58) Swelling valsartan (From [facility]) Allergy (Unknown, Verified 06/14/25 14:58) Swelling Medications ?Medication ?Instructions ?Recorded ?Confirmed ?Type multivitamin 1 tab PO QAM 02/10/18 History vit A 300 mcg-C 200 mg-E 27 1 ea PO DAILY 03/30/18 History mg-lutein 2 mg and minerals tablet handicap placard #1 ea 08/20/23 06/14/25 Rx acetaminophen 650 mg 650 mg PO Q12H 12/16/2306/01 History tablet,extended release (Tylenol 8 Hour) amlodipine 10 mg tablet 10 mg PO QDAY #90 tabs 04/0706/14/25 Rx benazepril 20 mg tablet 20 mg PO QDAY #90 tabs 04/0706/14/25 Rx Have you fallen in the past year?: No Nurse's Note: Pt states when he gpoes to lay down at night his legs ache bad. Pt states that he has had bilateral numbness in the heels. He states that he took supplements for this. [address] Andreina dickerson chiropractor hesees who told him to try formula 303 ( see attached link for ingredients) and took 1 of his wifes supplements synocell. (see below link) However they made him have rectal bleeding which was w/o bowel movement and bright red. Pt states once he stopped taking these the bleeding stopped. https://www.[employer]/shop/p/formula3 03 https://[employer]UP.[employer]/pages/ingredients [facility] Medical History (Updated 06/14/25 @ 15:[address] Silas Chaidez, DO) Impotence Hypertension Sciatica Surgical History History of colonoscopy History of back surgery Family History Mother CVA (cerebral vascular accident) Hypertension Father Hypertension Social History Smoking Status: Former smoker how long ago did patient quit smokin alcohol intake: current alcohol intake frequency: holidays/special occasions only Alcohol type: beer and wine substance use type: does not use what type of physical activity do you participate in: walking frequency: 1-2 times per week HPI HPI Chief Complaint: med fu Details: MIRA FELICIANO, is a 74 M who presents to the office today for leg achiness. At nighttime he has achiness in his lower legs both right and left side and normally gets better if he moves walks around or sometimes gets up in achair. He has no leg pain when he walks, but the legs feel kind of numb and very uncomfortable until he moves them. He took a nutritional supplement which did not seem to help the leg pain but did cause some rectal bleeding. He has had a colonoscopy about 5 years ago and was told another one was not needed. ROS Const Constitutional: No body ache, chills, excessive sweating, fatigue, fever(s), frequent falls, headache(s), snoring, weakness, sleep problems or change in appetite Eyes Eyes: No blurry vision, change in vision, eye pain or Light sensitivity ENT ENT: No abnormal hearing, ear or mastoid pain, tinnitus, nasal congestion, headache(s), neck pain or sore throat Resp Respiratory: No cough, shortness of breath, snoring or wheezing Cardio Cardiology: No chest pain at rest, chest pain with exertion, excessive sweating,shortness of breath, dyspnea on exertion, lightheadedness, orthopnea or palpitations Gastro GI: No abdominal pain, change in bowel habits, constipation, cramping, diarrhea,nausea/dyspepsia or vomiting Genitourinary Male: No burning urination, painful urination, urinary incontinence or urinary frequency Musc Musculoskeletal: No abnormal gait, joint pain, back pain, limited range of motion, neck pain or numbness Skin Skin: No dry skin, redness, lesions, itchy eyes, rash or wounds Neuro Neurology: No abnormal gait, abnormal hearing, weakness, frequent falls, headache(s), memory loss or numbness Psych Psychiatric: No anxiety, No change in appetite, No depression, No memory loss and No Thoughts of harming yourself/Others Endo Endocrine: No cold intolerance, excessive sweating, fatigue, flushing, heat intolerance, increased thirst/drinking or increased hunger Aller/Imm Allergy/Immunologic: No itchy eyes, seasonal allergy symptoms, hives or wheezing Wisam/Lymp Hematologic/Lymphatic: No easy bleeding, easy bruising, enlarged lymph nodes or other Exam Const General: cooperative and healthy appearing Nutritional Appearance: average body habitus HENMT Head: normal to inspection Resp Effort & Inspection: normal respiratory effort Auscultation: Bilateral: Clear to Auscultation Cardio Rate: regular rate Rhythm: regular rhythm Heart Sounds: no murmurs Musc Musculoskeletal: Yes joint tenderness (right hip is painful.) Skin General: no rashes or lesions noted Neuro General: patient oriented x3 and normal sensation to monofilament Extrem General: normal to inspection, full ROM, capillary refill normal, calf tenderness, no cyanosis and no edema Other: Normal dorsalis pedis and popliteal pulses. Coding Level of Care Code Off vis,est,level 3 Diagnoses Restless leg syndrome G281 Flu vaccine refused Z28.21 Assessment and Plan Assessment and Plan (1) Restless leg syndrome: Status: Acute Plan: Patient has rather typical restless leg syndrome symptoms. I am also concerned about the rectal bleeding. I will get appropriate blood studies and consider referring him to Dr. Rai who was the last physician to do a colonoscopy. Ifall of the studies are normal I will probably start him on gabapentin for his restless leg syndrome (2) Flu vaccine refused: Status: Acute Orders: Orders CBC-Complete Blood Cnt No Diff Today G2.81 - Restless legs syndrome Magnesium Today G25.81 - Restless legs syndrome Iron+Iron Binding Capacity Today G25.81 - Restless legs syndrome Basic Metabolic Profile (BMP) Today G2.81 - Restless legs syndrome Clinical Quality Measures Falls Risk Screening/Assistive Devices Have you fallen in the past year?: No 06/14/25 5663 <Electronically signed by Silas mims DO> Date _ Silas Chaidez DO Cosigner Signature: Date (if applicable) CC: ~ Tyrone [employer] Work Phone: [phone] 192-607701-29-2025 NoteHNO ID: [id number] Author: TIM RAI MD Service: ? Author Type: Physician Type: Progress Notes Filed: 09/29/2024 14:47 Note Text: [facility] History of Present illness Narrative* Tim Rai MD - 09/29/2024 2:44 PM EST anusol-hc script sent documented in this encounterProm[facility]23 Nurse Note* Carmina Martinez RN - 06/02/2023 8:20 AM EDT Patient received in phase II via cart in left lateral position, eyes open, alert to event, place and self, skin warm and dry, respirations regular and unlabored, abdomen soft and non distended, denies pain or nausea. Resting quietly on left side. documented in this encounterPromedica [facility]10-02-2023 History and physical note * Tim Rai MD - 06/02/2023 8:00 AM EDT Images from the original note were not included. HISTORY AND PHYSICAL Mira Mckeon Mireille 1950 REFERRING PHYSICIAN: Self CHIEF COMPLAINT: Consult (Colonoscopy consult) HPI: The patient is a 72 year old male referred for endoscopy. Mira notes a history of colon polyps and presents to discuss surveillance colonoscopy. Patient denies any change in bowel habits, weight changes, blood in stools, black tarry stools or abdominal pain. Denies family history of colon issues. The patient notes no upper GI complaints. Mira has undergone prior endoscopy. Last colonoscopy 04/24/[address] Rai at [facility] with adenomatous polyp removed. Patient denies chest pain, shortness of breath or recent hospitalizations. Denies problems with sedation in the past. PAST MEDICAL HISTORY PAST MEDICAL HISTORY Diagnosis Date Essential hypertension Sciatica PAST SURGICAL HISTORY PAST SURGICAL HISTORY Procedure Laterality Date BACK SURGERY HX COLONOSCOPY SCREENING 04/01/2018 [facility] with [place] 3 year follow up CURRENT MEDICATIONS Current [...] entered by the nurse and reviewed by wv Nursing Notes: Rachel Nash RN 02/04/2023 8:18 [...] failure, other cardiac issues, denies claudication, denies coldfeet, denies peripheral arterial stent. Respiratory: The patient [...] the PFSH and ROS obtained by others. Kavya Norman PA-C PHYSICAL EXAMINATION: General: The patient is 72 year old male, well nourished, well hydrated in no acute distress. The patient is oriented to time, place, and person. VITALS: Blood pressure 138/80, pulse 78, temperature 36.6 C (97.8 F), height 172.7 cm (5' 8), weight 92.4 kg (203 lb 12.8 oz), SpO2 96 %. Body mass index is 30.99 kg/m . HEENT: Normal cephalic, ataumatic, pupils are equally round, sclera are anicteric, mucous membranesare moist, oropharynx is clear. Neck has no [...] Will plan for lower endoscopy. We discussed therisks and benefits of the planned endoscopy. I have informed the patient that complications can occur including failure to complete the endoscopy and perforation. The patient had the opportunity to ask questions concerning the planned endoscopy. My staff has also explained the procedure to the patient in understandable terms and has given the patient printed material concerning the procedure. Thepatient freely consents to surgery. I plan to use Miralax bowel preparation I have explained to the patient the difference between IV conscious sedation and MAC anesthesia - and I have offered either, according to the patient's wishes. I have explained that with IV conscioussedation there is no anesthesia provider available and therefore there is a limitation of the amount of IV medications that can be given and that the patient may wake up in the middle of the procedure and/or experience pain/discomfort during the procedure. Further discussion was done and the patient was given the opportunity to ask questions and all questions were answered. The patient chooses IVconscious sedation Diagnoses: (Z12.11) Encounter for screening for malignant neoplasm of colon (primary encounter diagnosis) (Z86.010) History of colonic polyps I spent a total of 32 minutes on the date of the service which included preparing to see the patient, [id number] patient care, completing clinical documentation, obtaining and/or reviewing separately obtained history, performing a medically appropriate examination, counseling and educating the pat ient/family/caregiver, and ordering medications, tests, or procedures. Kavya Norman PA-C UPDATED HISTORY AND PHYSICAL EXAMINATION SERVICE DATE: 06/02/2023 SERVICE TIME: 7:51 AM PHYSICAL EXAM MUST BE COMPLETED ON ADMISSION The History and Physical (completed in the past 30 days) has been reviewed and the patient has beenexamined. The contents accurately reflect the patient's condition with the following additions or revisions since the H&P was completed. His last attempted colonoscopy his bowel prep was not adequate. He is back today after doing a 2-day bowel prep. Examination indicates no changes. This H&P can be found in the attached. SIGNATURE: Tim Rai III, MD PATIENT NAME: Mira Feliciano DATE: June 02, 2023 TIME: 7:51 AM documented in this encounterPromedica [facility]06-30-2023 History of Present illness Narrative* Tim Rai MD - 02/28/2023 8:34 AM EDT HISTORY AND PHYSICAL Mira Feliciano 1950 REFERRING PHYSICIAN: Tim Rai MD CHIEF COMPLAINT: Follow Up HPI: The patient is a 72 year old male referred for endoscopy. Mira notes a history of colon polyps and presents to discuss surveillance colonoscopy. Patient denies any change in bowel habits, weight changes, blood in stools, black tarry stools or abdominal pain. Denies family history of colon issues. The patient notes no upper GI complaints. Mira has undergone prior endoscopy. Last colonoscopy 04/24/[address] Rai at [facility] with adenomatous polyp removed. His bowel [...] Date BACK SURGERY HX COLONOSCOPY SCREENING 04/01/2018 [facility] with [place] 3 year follow up [...] failure, other cardiac issues, denies claudication, denies coldfeet, denies peripheral arterial stent. Respiratory: The patient [...] are equally round, sclera are anicteric, mucous membranesare moist, oropharynx is clear. Neck has no [...] Tim Rai III, MD documented in this encounterPromedica Toledo Hospital06-30-2023 Instructions* Patient Instructions* Tim Rai MD - 02/28/2023 8:28 AM EDT Images from the original note were not included. Bowel Preparation Instructions for: Golytely, Nulytely, Trilyte or Colyte (polyethylene glycol 3350and electrolytes) IF YOU DO NOT FOLLOW THESE [...] If you do not have a responsible refuse driver (family member or friend) with you to take you home, your exam cannot be done with sedation and will be cancelled. Please bring a list of all of your current medications, including any Over-the Counter medications with you. Medications If you take insulin, diabetic medications or blood thinners such as Coumadin (warfarin), Plavix (clopidogrel), Ticlid (ticlopidine hydrochloride), Agrylin (anagrelide), Xarelto (Rivaroxaban), Pradaxa(Dabigatran), Eliquis (Apixaban), and Effient (Prasugrel). You MUST [...] preparation solution at your local pharmacy or drugstore pharmacy. 1 08/2019 Bowel Preparation Instructions for: Golytely, Nulytely, Trilyte or Colyte (polyethylene glycol 3350and electrolytes) Three (3) Days Before Your Colonoscopy [...] your exam. 2 08/2019 documented in this encounterPromedica [facility]06-22-2023 Nurse Note* Cherry Ramachandran RN - 02/20/2023 11:49 AM EDT Patient passing a small amount of bright red blood via rectum. Dr. Rai notified. No new orders given. Dr. Rai is going to stop and see the patient. * Cherry Ramachandran RN - 02/20/2023 11:40 AM EDT Patient passing a large amount of air via rectum. Patient states that he is starting to feel much better. * Cherry Ramachandran RN - 02/20/2023 11:30 AM EDT Patient's belly is starting to soften but remains distended. Ambulated in the lester and sat on the commode for a bit. Now he is in the knees to abdomen position belly down. Will continue to monitor. * Cherry Ramachandran RN - 02/20/2023 10:40 AM EDT Abdomen firm and distended. Will continue to monitor. Patient is passing a moderate amount of air via rectum. * Kenneth Olivo RN - 02/20/2023 10:[address] Rai, patients next colonoscopy needs be be performed with an Adult scope. Kenneth Olivo RN documented in this encounterPromedica [facility] Hospital06-22-2023 History and physical note * Tim Rai MD - 02/20/2023 10:00 AM EDT Images from the original note were not included. HISTORY AND PHYSICAL Mira Feliciano 1950 REFERRING PHYSICIAN: Self CHIEF COMPLAINT: Consult (Colonoscopy consult) HPI: The patient is a 72 year old male referred for endoscopy. Mira notes a history of colon polyps and presents to discuss surveillance colonoscopy. Patient denies any change in bowel habits, weight changes, blood in stools, black tarry stools or abdominal pain. Denies family history of colon issues. The patient notes no upper GI complaints. Mira has undergone prior endoscopy. Last colonoscopy 04/24/[address] Rai at [facility] with adenomatous polyp removed. Patient denies chest pain, shortness of breath or recent hospitalizations. Denies problems with sedation in the past. PAST MEDICAL HISTORY PAST MEDICAL HISTORY Diagnosis Date Essential hypertension Sciatica PAST SURGICAL HISTORY PAST SURGICAL HISTORY Procedure Laterality Date BACK SURGERY HX COLONOSCOPY SCREENING 04/01/2018 [facility] with [place] 3 year follow up [...] entered by the nurse and reviewed by wv Nursing Notes: Rachel Nash RN 02/04/2023 8:18 [...] failure, other cardiac issues, denies claudication, denies coldfeet, denies peripheral arterial stent. Respiratory: The patient [...] last Mammogram screening? N/A Last Colonoscopy: 2017 Rachel Nash RN I have confirmed and edited as necessary, the PFSH and ROS obtained by others. Kavya Norman PA-C PHYSICAL EXAMINATION: General: The patient is 72 year old male, well nourished, well hydrated in no acute distress. The patient is oriented to time, place, and person. VITALS: Blood pressure 138/80, pulse 78, temperature 36.6 C (97.8 F), height 172.7 cm (5' 8), weight 92.4 kg (203 lb 12.8 oz), SpO2 96 %. Body mass index is 30.99 kg/m . HEENT: Normal cephalic, ataumatic, pupils are equally round, sclera are anicteric, mucous membranesare moist, oropharynx is clear. Neck has no [...] Will plan for lower endoscopy. We discussed therisks and benefits of the planned endoscopy. I have informed the patient that complications can occur including failure to complete the endoscopy and perforation. The patient had the opportunity to ask questions concerning the planned endoscopy. My staff has also explained the procedure to the patient in understandable terms and has given the patient printed material concerning the procedure. Thepatient freely consents to surgery. I plan to use Miralax bowel preparation I have explained to the patient the difference between IV conscious sedation and MAC anesthesia - and I have offered either, according to the patient's wishes. I have explained that with IV conscioussedation there is no anesthesia provider available and therefore there is a limitation of the amount of IV medications that can be given and that the patient may wake up in the middle of the procedure and/or experience pain/discomfort during the procedure. Further discussion was done and the patient was given the opportunity to ask questions and all questions were answered. The patient chooses IVconscious sedation Diagnoses: (Z12.11) Encounter for screening for malignant neoplasm of colon (primary encounter diagnosis) (Z86.010) History of colonic polyps I spent a total of 32 minutes on the date of the service which included preparing to see the patient, [id number] patient care, completing clinical documentation, obtaining and/or reviewing separately obtained history, performing a medically appropriate examination, counseling and educating the pat ient/family/caregiver, and ordering medications, tests, or procedures. Kavya Norman PA-C UPDATED HISTORY AND PHYSICAL EXAMINATION SERVICE DATE: 02/20/2023 SERVICE TIME: 9:45 AM PHYSICAL EXAM MUST BE COMPLETED ON ADMISSION The History and Physical (completed in the past 30 days) has been reviewed and the patient has beenexamined. The contents accurately reflect the patient's condition with the following additions or revisions since the H&P was completed. Examination indicates no changes. This H&P can be found in the attached. SIGNATURE: Tim Rai III, MD PATIENT NAME: Mira Feliciano DATE: February 20, 2023 TIME: 9:45 AM documented in this encounterPromedica [facility] Hospital06-14-2023 Miscellaneous Notes* Telephone Encounter - Kavya Norman PA-C - 02/12/2023 1:48 PM EDT Rx sent * Telephone Encounter - Kaity Holden - 02/12/2023 9:07 AM EDT Patient is asking prep Golytely instead of Miralax/Dulcolax Please send to [facility] in [place] Kaity Holden Gravity Meter Operator * Telephone Encounter - Kaity Holden - 02/04/2023 8:41 AM EDT 02/20/2023 colon asc documented in this encounterPromedica [facility] HospitalEvaluation note* Diagnosis Onset Date Resolution Status Annual physical exam acute Nocturia acute Hypertension [facility] Work Phone: Evaluation note* Diagnosis Personal history of colonic polyps- Primary documented in this encounter [facility] note* Diagnosis Personal history of colonic polyps- Primary documented in this encounter [facility] note* Diagnosis Encounter for screening for malignant neoplasm of colon- Primary Special screening for malignant neoplasms, colon Personal history of colonic polyps documented in this encounter [facility] note* Diagnosis Personal history of colonic polyps- Primary documented in this encounter [facility] note* Diagnosis Onset Date Resolution Status Strain of muscle of right groin region acute Hypertension chronic Annual physical exam acute Essential hypertension acute History of back surgery acut e History of colonoscopy 2018 acute Right leg pain acute [facility] Work Phone: evaluation note* Diagnosis Onset Date Resolution Status Annual physical exam acute Essential hypertension acute History of back surgery acut e History of colonoscopy 2018 acute Right leg pain acute [facility] Work Phone: evaluation note* Diagnosis Onset Date Resolution Status Degenerative joint disease of right hip acute Essential hypertension acute Neutrophilic leukocytosis re solved [facility] Work Phone: evaluation note* Diagnosis Encounter for screening for malignant neoplasm of colon- Primary Special screening for malignant neoplasms, colon documented in this encounter [facility] note* Diagnosis Onset Date Resolution Status Admit Date Flu vaccine refused acute Octob er 2024 2:55pm Restless leg syndrome acute Oct rhea 2024 2:55pm [facility] Work Phone: Reason for referral (narrative)* Outpatient Procedure (Routine) - Authorized Specialty Diagnoses / Procedures Referred By Akosua t Referred To Contact [facility] Diagnoses Personal history of colonic polyps Procedures COLONOSCOPY DIAGNOSTIC COLONOSCOPY DIAGNOSTIC COLONOSCOPY FLX DX W/COLLJ SPEC WHEN Tim Lemus MD [address] [place] [address] [facility] [address] [place] [address] Referral ID Status Reason Start Date Expiration Date Visits Requested Visits Authorized [id number] Authorized Auto-Generat ed Referral 02/28/2023 02/29/2024 1 1 [facility] for referral (narrative)* Outpatient Procedure (Routine) - Closed Specialty Diagnoses / Procedures Referred By Contac t Referred To Contact [facility] Diagnoses Personal history of colonic polyps Procedures COLONOSCOPY SCREENING COLONOSCOPY FLX DX W/COLLJ SPEC WHEN Kavya Mina PA-C [address] [place] [address] [address] Referral ID Status Reason Start Date Expiration Date V isits Requested Visits Authorized [id number] Closed Auto-Generate d Referral 02/04/2023 02/05/2024 1 1 T [facility] for referral (narrative)* Outpatient Procedure (Routine) - Closed Specialty Diagnoses / Procedures Referred By Contac t Referred To Contact [facility] Diagnoses Personal history of colonic polyps Procedures COLONOSCOPY DIAGNOSTIC COLONOSCOPY DIAGNOSTIC COLONOSCOPY FLX DX W/COLLJ SPEC WHEN Tim Lemus MD [address] [place] [address] [facility] [address] [address] Referral ID Status Reason Start Date Expiration Date V isits Requested Visits Authorized [id number] Closed Auto-Generate d Referral 02/28/2023 02/29/2024 1 1 [facility] for referral (narrative)No reason for referral information [facility]White [facility] Work Phone: reason for visit Narrative* Outpatient Procedure (Routine) - Closed Specialty Diagnoses / Procedures Referred By Contac t Referred To Contact [facility] Diagnoses Personal history of colonic polyps Procedures COLONOSCOPY SCREENING COLONOSCOPY FLX DX W/COLLJ SPEC WHEN Kavya Mina PA-C [address] [place] [address] [facility] [address] [address] Referral ID Status Reason Start Date Expiration Date V isits Requested Visits Authorized [id number] Closed Auto-Generate d Referral 02/04/2023 02/05/2024 1 1 [facility] N[facility]ative* Outpatient Procedure (Routine) - Closed Specialty Diagnoses / Procedures Referred By Akosua t Referred To Contact [facility] Diagnoses Personal history of colonic polyps Procedures COLONOSCOPY DIAGNOSTIC COLONOSCOPY DIAGNOSTIC COLONOSCOPY FLX DX W/COLLJ SPEC WHEN PFRMD Tim Rai MD [address] [place] [address] [facility] [address] [place] [address] Referral ID Status Reason Start Date Expiration Date V isits Requested Visits Authorized [id number] Closed Auto-Generate d Referral 02/28/2023 02/29/2024 1 1 [facility] Chief Complaint and Reason for Visit Chief Complaint R/S FROM JUN. - FOLL OW UP Reason for Visit Annual physical exam Nocturia Hypertension Chief Complaint ACUTE - SORE RT LEG ANNUAL OA L AND R HIP RX HERE Reason for Visit Strain of muscle of right groin region Hypertension Annual physical exam Essential hypertension History of back surgery History of colonoscopy Right leg pain Chief Complaint ANNUAL OA L AND R HIP RX HERE Pre-Surgical Testing PREOP Reason for Visit Annual physical exam Essential hypertension History of back surgery History of colonoscopy Right leg pain Chief Complaint Pre-Surgical Testing PREOP SURGICAL CLEARANCE SEVERE RT HIP OSTEOARTHRITIS Reason for Visit Degenerative joint d isease of right hip Essential hypertension Neutrophilic leukocytosis Chief Complaint Admit Date Multiple concerns June 14, 2025 2 :55pm EORD[place] June 14, 2025 3 :51pm Reason for Visit Admit Date Flu vaccine refused June 14, 2025 2 :55pm Restless leg syndrome June 14, 2025 2:55pm Family History No Family History Records Found Relationship Condition Age at Onset Recorded Date/T jacques mother Cerebrovascular accident (CVA) Unknown Hypertension Unknown father Hypertension Unknown Advance Directives No Advanced Directives Records Found Advance Directive Response Recorded Date/ Time Living Will Yes March 30, 2018 9:49am Power of Case Picker Yes March 30 9:49am Advance Directive Response Recorded Date/ Time Living Will Yes March 30, 2018 10:49am Power of Case Picker Yes March 30 10:49am Reason for Referral Specialty Diagnoses / Procedures Referred By Contac t Referred To Contact Kavya Norman PA-C [address] [place] [address] Referral ID Status Reason Start Date Expiration Date V isits Requested Visits Authorized [id number] Pending Review 1 1 Specialty Diagnoses / Procedures Referred By Contac t Referred To Contact [facility] Diagnoses Personal history of colonic polyps Procedures COLONOSCOPY SCREENING COLONOSCOPY FLX DX W/COLLJ SPEC WHEN PFRMD Kavya Norman PA-C [address] [place] [address] [facility] [address] [place] [address] Referral ID Status Reason Start Date Expiration Date V isits Requested Visits Authorized [id number] Closed Auto-Generate d Referral 02/04/2023 02/05/2024 1 1 Medications Administered Section Inactive Administered Medications - [...] (SUBLIMAZE) 25-100 mcg, INTRAVENOUS, DIRECTED, Starting on Eneida 02/20/23 at 1030, Until Eneida 02/20/23 at 1429, DOSING DIRECTED BY PHYSICIAN FOR PROCEDURAL SEDATION ONLY, Intraprocedure Given 02/20/2023 10:11 AM EDT 50 mcg Given 02/20/2023 9:58 AM EDT 50 mcg lactated ringers iv infusion 30 mL/hr, INTRAVENOUS, CONTINUOUS, Starting on Eneida 02/20/23 at 0930, Until Eneida 02/20/23 at 1041, Preprocedure New Bag/Syringe/Bottle 02/20/2023 9:28 AM EDT 30 mL/hr 30 mL/hr Arm, Right midazolam 1-5 mg injection (VERSED) 1-5 mg, INTRAVENOUS, DIRECTED, Starting on Ene[place] 02/20/23 at 1030, Until Eneida 02/20/23 at 1429, DOSING DIRECTED BY PHYSICIAN FOR PROCEDURAL SEDATION ONLY, Intraprocedure Given 02/20/2023 10:11 AM EDT 1 mg Given 02/20/2023 10:02 AM EDT 1 mg Given 02/20/2023 9:58 AM EDT 3 mg Inactive Administered Medications - up to 3 [...] Given 06/02/2023 7:58 AM EDT 3 mg Summary Purpose Additional Source Comments Goals (unrecognized section and content) Goals may be documented in a n alternate sectionGoals may be documented in an alternate sectionGoals may be documented in an alternate sectionGoals may be documented in an alternate sectionGoals may be documented in an alternate sectionGoals may be documented in an alternate section Source Comments (unrecognize d section and content) In the event this informatio n is protected by the Federal Confidentiality of Alcohol and Drug Abuse Patient Records regulations: The Federal rules restrict any use of the information to criminally investigate or prosecute any alcohol or drug abuse patient.[facility] HospitalIn the event this information is protected by the Federal Confidentiality of Alcohol and Drug Abuse Patient Records regulations: The Federal rules restrict any use of the information to criminally investigate or prosecute any alcohol or drug abuse patient.[facility] HospitalIn the event this information is protected by the Federal Confidentiality of Alcohol and Drug Abuse Patient Records regulations: The Federal rules restrict any use of the information to criminally investigate or prosecute any alcohol or drug abuse patient.[facility] HospitalIn the event this information is protected by the Federal Confidentiality of Alcohol and Drug Abuse Patient Records regulations: The Federal rules restrict any use of the information to criminally investigate or prosecute any alcohol or drug abuse patient.[facility] HospitalIn the event this information is protected by the Federal Confidentiality of Alcohol and Drug Abuse Patient Records regulations: The Federal rules restrict any use of the information to criminally investigate or prosecute any alcohol or drug abuse patient.[facility] HospitalIn the event this information is protected by the Federal Confidentiality of Alcohol and Drug Abuse Patient Records regulations: The Federal rules restrict any use of the information to criminally investigate or prosecute any alcohol or drug abuse patient.[facility] Care Teams (unrecognized sec tion and content) Service Bar Cashier Relationship Specialty Start Date End Date Silas Chaidez DO [address] [place] [address] PCP - General Family Medicine 02/03/23 Service Bar Cashier Relationship Specialty Start Date End Date Silas Chaidez DO [address] [place] [address] PCP - General Family Medicine 02/03/23 Service Bar Cashier Relationship Specialty Start Date End Date Silas Chaidez DO [address] [place] [address] PCP - General Family Medicine 02/03/23 [facility] Cashier Relationship Specialty Start Date End Date Silas Chaidez DO [address] [place] [address] PCP - General Family Medicine 02/03/23 [facility] Cashier Relationship Specialty Start Date End Date Silas Chaidez DO [address] [place] [address] PCP - General Family Medicine 02/03/23 Team Status: Active Member Role Status Dates Dr. Silas Chaidez DO Family Provider Active Dr. Silas Chaidez DO Primary Care Provider Active Team Status: Inactive Member Role Status Dates Dr. Silas Chaidez , DO Primary Care Provider, Referr ing Provider Active Chucky SAENZ PA Attending Provider Active Team Status: Inactive Member Role Status Dates Dr. Silas Chaidez , DO Primary Care Pr ovider, Attending Provider, Referring Provider Active Team Status: Active Member Role Status Dates Dr. Silas Chaidez DO Primary Care Provider Active DANY Ramírez Attending Provider, Referring Pr ovider Active Team Status: Active Member Role Status Dates Dr. Silas Chaidez DO Primary Care Provider Active Dr. Magdaleno Howard MD Attending Provider Active Dr. Satya Michael MD Referring Provider Active Team Status: Inactive Member Role Status Dates Dr. Silas Chaidez DO Primary Care Provider Active Dr. Satya Michael MD Attending Provider, Referring P rovider Active Team Status: Inactive Member Role Status Dates Dr. Silas Chaidez DO Primary Care Provider Active DANY Ramírez Attending Provider, Referring Pr ovider Active [employer] [facility] Cashier Relationship Specialty Start Date End Date Silas Chaidez DO [address] [place] [address] PCP - General Family Medicine 02/03/23 Team Status: Active Member Role/Relationship Status Dates Dr. Silas Chaidez DO Primary care physician Active Team Status: Inactive Member Role/Relationship Status Dates Dr. Silas Chaidez DO Primary care physician Active Start: June 14, 2025 End: June 14, 2025 Dr. Silas Chaidez DO Attending physician Active Start: June 14, 2025 End: June 14, 2025 Dr. Silas Chaidez DO Referring Provider Active Start: June 14, 2025 End: June 14, 2025 Team Status: Active Member Role/Relationship Status Dates Dr. Silas Chaidez DO Primary care physician Active Start: June 14, 2025 Dr. Silas Chaidez , DO Attending physician Active Start: June 14, 2025 Dr. Silas Chaidez , DO Referring Provider Active Start: June 14, 2025 Reason for Visit (unrecogniz ed section and content) Reason Comments Follow Up Reason Comments 02/20/2023 colon asc (unrecognized sect ion and content) No Status Records FoundNo Status Records Found INFORMATION SOURCE (unrecogn ized section and content) DATE CREATED AUTHOR 10/01/2024 [facility] DATE CREATED AUTHOR AUTHOR'S ORGANIZ ATION 07/01/2025 [facility] FOR RECORDS PERTAINING TO PATIENTS WHO ARE [...] BE BASED ON THE PRIMARY CLINICAL RECORDS. [employer] provides no warranty or guarantee of the accuracy or completeness of information in this document.
[2025-08-19 15:06] LABS: Hematocrit 46.8 % (40-54); Hemoglobin 14.8 g/dL (13.0-16.5); Immature Granulocytes Count 0.110 X10^3/uL (0.0-0.0); Mean Corp Hgb Conc 31.6 g/dL (32-36); Mean Corpuscular Volume 89.7 fL (80-94); Mean Platelet Vol. 10.0 fl (6.2-12.0); NRBC Flagged by Analyzer 0 % (0-5); Platelet Count 319 K/mm3 (150-450); RBC Distribution Width CV 17.9 % (11.6-14.6); RBC Distribution Width SD 59.2 fl (35.1-43.9); Red Blood Count 5.22 M/mm3 (4.6-6.2); White Blood Count 10.8 K/mm3 (4.4-11.0)
[2025-08-19 15:39] LABS: PSA,Total - Annual Screen 7.11 ng/mL (0.02-4.00)
== END | disposition home or self-care (01) ==
LOC: MTLAB 12:46
PROVIDERS: PCP Family Medicine; Referring Provider Family Medicine; Visit Provider Family Medicine
DX: D46.9 Myelodysplastic syndrome, unspecified (principal); R35.1 Nocturia
CPT/HCPCS: 36415; 84153; 85025; G0103